=== PATIENT | male | born 1970 | race Caucasian/White ===

== ENCOUNTER 2018-08-15 11:00 | Inpatient (IN) | payer MEDICAID ==
[2018-08-15 11:10] VITALS: BMI 34.0
[2018-08-15] MEDS ORDERED: Sodium Chloride 0.9% 1,000 ML IV SCH (11:30)
--- NOTE | 2018-08-15 11:31 | C.PDOC ---
History Of Present Illness 47 years old male presents to ED for complaints of swelling, redness, and pus discharge from right foot. 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 Patient also reports he developed a fever today. Patient also states that he has been non-complaint with his metformin medication. Patient's current blood-sugar is in the 300s. Denies any other complaints. Time Seen by Provider: 08/15/18 11:04 Chief Complaint (Nursing): Lower Extremity Problem/Injury History Per: Patient History/Exam Limitations: no limitations Onset/Duration Of Symptoms: Days Current Symptoms Are (Timing): Still Present Severity: Moderate Recent travel outside of the [place]: No - Ankle/Foot Description Of Injury: Struck With Object Past Medical History Reviewed: Historical Data, Nursing Documentation, Vital Signs Vital Signs: Last Vital Signs Temp 98.1 F 08/15/18 11:10 Pulse 97 H 08/15/18 11:10 Resp 20 08/15/18 11:10 BP 133/83 08/15/18 11:10 Pulse Ox 99 08/15/18 11:10 - Medical History PMH: Asthma, Diabetes - [facility] Procedures TETANUS TOXOID ADMINIST (04/27/14) Family History: States: Unknown Family Hx - Social History Hx Tobacco Use: Yes Hx Alcohol Use: No Hx Substance Use: No - Immunization History Hx Tetanus Toxoid Vaccination: Yes Hx Influenza Vaccination: Yes Hx Pneumococcal Vaccination: Yes Review Of Systems Constitutional: Positive for: Fever. Negative for: Chills Skin: Positive for: Other (Redness and swelling of right foot ). Negative for: Rash Physical Exam - Physical Exam Appears: Non-toxic, No Acute Distress Skin: Warm, Dry, No Rash Head: Atraumatic, Normacephalic Eye(s): bilateral: Normal Inspection, PERRL, EOMI Oral Mucosa: Moist Neck: Normal ROM, Supple Chest: Symmetrical, No Tenderness Cardiovascular: Rhythm Regular, No Murmur Respiratory: Normal Breath Sounds, No Rales, No Rhonchi, No Wheezing Gastrointestinal/Abdominal: Soft, No Tenderness Extremity: Normal ROM, No Deformity, Swelling (right foot), Other (Cellulitis, swelling, and erythema to right dorsal aspect of foot) Pulses: Left Radial: Normal, Right Radial: Normal Neurological/Psych: Oriented x3, Normal Speech Gait: Steady ED Course And Treatment - Laboratory Results Result Diagrams: 08/15/18 12:02 08/15/18 12:02 Lab Interpretation: Abnormal O2 Sat by Pulse Oximetry: 99 (RA) Pulse Ox Interpretation: Normal - Other Rad Right Foot X-Ray X-Ray: Viewed By Me, Read By Radiologist Interpretation: Date of service: 08/15/2018. PROCEDURE: Right Foot Radiographs. HISTORY: cellulitis. COMPARISON: None. FINDINGS: BONES: No acute fracture or destructive bony lesion identified. JOINTS: Severe hallux valgus deformity. SOFT TISSUES: Prominent dorsal soft tissue edema seen at the midfoot and forefoot junction. No retained radiodense foreign body or emphysema soft tissue changes related. OTHER FINDINGS: None. IMPRESSION: No acute fracture dislocation. Severe hallux valgus deformity. Forefoot midfoot dorsal soft tissue edema. Progress Note: Treated with IVF NSS, Vancomycin and zosyn. case discussed and patient evaluated by podiatry resident. Treated with insulin 5 units IV Reassessment Condition: Improved - Physician Consult Information Physician Contacted: Claudy Rapp Outcome Of Conversation: admit Medical Decision Making Medical Decision Making: Plan: * IV Fluids * Zosyn * Vincomycin * Blood work * Blood Culture * Urinalysis * Right Foot X-Ray 11:30AM * Discussed case with Podiatry recreation specialist Disposition Discussed With Dr.: Claudy Rapp Doctor Will See Patient In The: Hospital - Disposition Disposition: HOSPITALIZED Disposition Time: 16:00 Condition: STABLE - POA Present On Arrival: None - Clinical Impression Clinical Impression: Cellulitis - PA / COSTUME MISTRESS / Resident Statement MD/DO has reviewed & agrees with the documentation as recorded. - Scribe Statement The provider has reviewed the documentation as recorded by the Artibliliana Blue All medical record entries made by the Ricardo were at my direction and personally dictated by me. I have reviewed the chart and agree that the record accurately reflects my personal performance of the history, physical exam, medical decision making, and the department course for this patient. I have also personally directed, reviewed, and agree with the discharge instructions and disposition. Decision To Admit - Pt Status Changed To: Hospital Disposition Of: Inpatient - Admit Certification Admit to Inpatient:: After my assessment, the patient will require hospitalization for at least two midnights. This is because of the severity of symptoms shown, intensity of services needed, and/or the medical risk in this patient being treated as an outpatient. - InPatient: Physician Admission Certification: I certify that this patient requires 2 or mo re midnights of care for the following reason:: cellulitis. Hyperglycemia - . Bed Request Type: Regular Admitting Physician: Claudy Rapp Patient Diagnosis: Cellulitis
[2018-08-15] MEDS ORDERED: Piperacillin/Tazobact 3.375 gm 100 ML IV STA (11:32)
[2018-08-15] MEDS ORDERED: Vancomycin 1 GM 1 GM/250 ML BAG IV SCH (11:45)
[2018-08-15 12:05] LABS: BASO # 0.1 K/uL (0.0-0.2); BASO % 0.7 % (0.0-2.0); EOS # 0.2 K/uL (0.0-0.7); EOS % 1.7 % (0.0-4.0); HEMOGLOBIN 13.2 g/dL (12.0-18.0); LYMPH # 2.1 K/uL (1.0-4.3); LYMPH % 18.2 % (20.0-40.0); MEAN CELL VOLUME 85.9 fL (80.0-94.0); MEAN CORPUSCULAR HEMOGLOBIN 28.9 pg (27.0-31.0); MEAN CORPUSCULAR HGB CONC 33.7 g/dL (33.0-37.0); MEAN PLATELET VOLUME 8.3 fL (7.2-11.7); MONO # 0.7 K/uL (0.0-0.8); MONO % 5.8 % (0.0-10.0); NEUT # 8.7 K/uL (1.8-7.0); NEUT % 73.6 % (50.0-75.0); RBC 4.55 Mil/uL (4.40-5.90); RED CELL DISTRIBUTION WIDTH 13.5 % (11.5-14.5); WHITE BLOOD COUNT 11.8 K/uL (4.8-10.8)
[2018-08-15] MEDS ORDERED: Sodium Chloride 0.9% 1,000 ML ONE ×2 (12:10→12:44)
[2018-08-15] MEDS ORDERED: Piperacillin/Tazobact 3.375 gm 100 ML IVPB ONE (12:10)
[2018-08-15] MEDS ORDERED: Vancomycin 1 GM 1 GM/250 ML BAG IVPB ONE (12:10)
[2018-08-15 12:24] LABS: ALBUMIN 3.6 g/dL (3.5-5.0); ALT/SGPT 14 U/L (21-72); AST/SGOT 11 U/L (17-59); BLOOD UREA NITROGEN 17 mg/dL (9-20); GFR NON-AFRICAN AMERICAN > 60
[2018-08-15 12:26] LABS: SQUAMOUS EPITHIAL < 1 /hpf (0-5); URINE BILIRUBIN 1+ (NEGATIVE); URINE BLOOD NEGATIVE (NEGATIVE); URINE CLARITY Clear (Clear); URINE COLOR Amber (YELLOW); URINE GLUCOSE (UA) 3+ mg/dL (Normal); URINE LEUKOCYTE ESTERASE NEG Leu/uL (Negative); URINE PROTEIN 1+ mg/dL (NEGATIVE)
[2018-08-15] MEDS ORDERED: Sodium Chloride 0.9% 1,000 ML IV ONE (12:29)
[2018-08-15] MEDS ORDERED: (Novolin R) Insulin Human Regular 100 units/ml vial IVP ONE (12:30)
[2018-08-15] MEDS ORDERED: (Novolin R) Insulin Human Regular 100 units/ml vial ONE (12:44)
--- NOTE | 2018-08-15 15:18 | CP.PCM.CON ---
Addendum entered and electronically signed by Rossi Meaodws DPM 08/15/18 15:55: LE exam: Derm - multiple diffuse hyperpigmented indurated lesions noted to B/L legs, non-tender with no breaks in skin or soft tissue noted Original Note: History of Present Illness - History of Present Illness History of Present Illness: Podiatry Consult Note - Dr. Carter 47 y/o male with PMHx of DM, asthma seen in ED today for right foot pain and swelling. He states that his foot has gotten increasingly swollen and painful over the last 6-7 weeks. 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 Admits to sticking a needle into the top of the foot and draining out white fluid, which gives him some relief. States he is not keeping up with his diabetes meds as he does not regularly see a primary care doctor. Denies seeing a firewall engineer for diabetic foot care. At present, admits to having mild fevers and chills as of l ate. Denies N/V/CP/SOB. PSHx: denies All: NKDA SocHx: Admits to cigarette use approx 10-12 cigarettes daily. Lives in [place] with children. Review of Systems - Review of Systems All systems: reviewed and no additional remarkable complaints except (per HPI) Past Patient History - Past Social History Smoking Status: Heavy Smoker > 10 Cigarettes Daily - PULMONARY Hx Asthma: Yes - ENDOCRINE/METABOLIC Hx Endocrine Disorders: Yes Hx Diabetes Mellitus Type 2: Yes - PSYCHIATRIC Hx Substance Use: No - SURGICAL HISTORY Hx Surgeries: No Meds Allergies/Adverse Reactions: Allergies Allergy/AdvReac Type Severity Reaction Status Date / Time No Known Allergies Allergy Verified 08/15/18 11:07 - Medications Medications: Current Medications Sodium Chloride (Sodium Chloride 0.9%) 1,000 mls @ 100 mls/hr IV .Q10H ULISSES Last Admin: 08/15/18 12:16 Dose: 100 mls/hr Vancomycin HCl (Vancomycin 1gm In Normal Saline Addvantage) 1 gm in 250 mls @ 166.667 mls/hr IV STAT ULISSES; Protocol Last Admin: 08/15/18 12:48 Dose: 166.667 mls/hr Physical Exam - Constitutional Appears: Well, Non-toxic, No Acute Distress - Extremities Exam Additional comments: Lower extremity focused exam: Vasc: DP pulse 1/4 on R, PT non palpable secondary to edema. DP/PT pulses 2/4 on L. Non-pitting pedal edema extending from ankle distally to digits on R; no pedal edema on LLE. CFT < 3 sec to all digits x10. Temperature gradient warm to warm on RLE; warm to cool on LLE Derm: Circular superficial skin abscess vs ulceration noted to dorsum of right foot measuring approx 4cm in diameter and 0.1cm in depth with olga-wound exhibiting blistered skin. Central aspect of wound exhibits hematoma formation. Olga-wound erythema noted. No active drainage, no malodor, no fluctuance. Erythematous changes noted from distal 2/3 of leg distally to digits of foot. Neuro: protective sensation is grossly intact Ortho: moderate-severe tenderness noted to palpation of right dorsal foot at site of wound - Neurological Exam Neurological exam: Alert, Oriented x3 - Psychiatric Exam Psychiatric exam: Normal Affect, Normal Mood Results - Vital Signs Recent Vital Signs: Last Vital Signs Temp 97.8 F 08/15/18 14:19 Pulse 90 08/15/18 14:19 Resp 18 08/15/18 14:32 BP 144/87 08/15/18 14:19 Pulse Ox 100 08/15/18 14:19 - Labs Result Diagrams: 08/15/18 12:02 08/15/18 12:02 Labs: Laboratory Results - last 24 hr 08/15/18 08/15/18 08/15/18 11:07 12:02 12:02 WBC 11.8 H RBC 4.55 Hgb 13.2 Hct 39.1 MCV 85.9 MCH 28.9 MCHC 33.7 RDW 13.5 Plt Count 278 MPV 8.3 Neut % (Auto) 73.6 Lymph % (Auto) 18.2 L Blount % (Auto) 5.8 Eos % (Auto) 1.7 Baso % (Auto) 0.7 Neut # (Auto) 8.7 H Lymph # (Auto) 2.1 Blount # (Auto) 0.7 Eos # (Auto) 0.2 Baso # (Auto) 0.1 Sodium 135 Potassium 4.5 Chloride 99 Carbon Dioxide 28 Anion Gap 13 BUN 17 Creatinine 0.8 Est GFR ( Amer) > 60 Est GFR (Non-Af Amer) > 60 POC Glucose (mg/dL) 361 H Random Glucose 418 H* Lactic Acid Calcium 9.0 Total Bilirubin 0.5 AST 11 L ALT 14 L Alkaline Phosphatase 143 H Total Protein 7.3 Albumin 3.6 Globulin 3.7 Albumin/Globulin Ratio 1.0 Urine Color Urine Clarity Urine pH Ur Specific [employer] Urine Protein Urine Glucose (UA) Urine Ketones Urine Blood Urine Nitrate Urine Bilirubin Urine Urobilinogen Ur Leukocyte Esterase Urine WBC (Auto) Urine RBC (Auto) Ur Squamous Epith Cells 08/15/18 08/15/18 08/15/18 12:02 12:17 14:24 WBC RBC Hgb Hct MCV MCH MCHC RDW Plt Count MPV Neut % (Auto) Lymph % (Auto) Blount % (Auto) Eos % (Auto) Baso % (Auto) Neut # (Auto) Lymph # (Auto) Blount # (Auto) Eos # (Auto) Baso # (Auto) Sodium Potassium Chloride Carbon Dioxide Anion Gap BUN Creatinine Est GFR ( Amer) Est GFR (Non-Af Amer) POC Glucose (mg/dL) 263 H Random Glucose Lactic Acid 1.9 Calcium Total Bilirubin AST ALT Alkaline Phosphatase Total Protein Albumin Globulin Albumin/Globulin Ratio Urine Color Alva Urine Clarity Clear Urine pH 5.0 Ur Specific [employer] 1.036 H Urine Protein 1+ H Urine Glucose (UA) 3+ H Urine Ketones Trace Urine Blood Negative Urine Nitrate Negative Urine Bilirubin 1+ H Urine Urobilinogen 4.0 Ur Leukocyte Esterase Neg Urine WBC (Auto) 3 Urine RBC (Auto) 7 H Ur Squamous Epith Cells < 1 Assessment & Plan - Assessment and Plan (Free Text) Assessment: 47 y/o diabetic male with right lower extremity cellulitis with possible foot abscess Plan Pt seen and evaluate at bedside Discussed plan with Dr. Carter WBC 11.8, mild tachycardia HR 97 noted R foot x-rays reviewed, no acute osseous abnormalities noted, marked soft tissue edema noted to forefoot and midfoot Wound site cleaned with saline and dressed with betadine, DSD Pt to be admitted for IV abx RLE MRI ordered, r/o soft tissue abscess, r/o osteomyelitis Recommend IV Vancomycin, Zosyn for abx therapy Podiatry will continue to follow patient while in house
--- NOTE | 2018-08-15 15:33 | RAD ---
Date of service: 08/15/2018 PROCEDURE: Right Foot Radiographs. HISTORY: cellulitis COMPARISON: None. FINDINGS: BONES: No acute fracture or destructive bony lesion identified. JOINTS: Severe hallux valgus deformity. SOFT TISSUES: Prominent dorsal soft tissue edema seen at the midfoot and forefoot junction. No retained radiodense foreign body or emphysema soft tissue changes related. OTHER FINDINGS: None. IMPRESSION: No acute fracture dislocation. Severe hallux valgus deformity. Forefoot midfoot dorsal soft tissue edema.
[2018-08-15] MEDS: Morphine 4 MG/ML VIAL IV PRN ×2 (16:52→22:52)
[2018-08-15] MEDS: Sodium Chloride 0.9% 1,000 ML IV SCH (16:54)
[2018-08-15] MEDS: Piperacillin/Tazobact 3.375 GM in Sodium Chloride 100 ML IVPB SCH ×2 (17:00→21:39)
[2018-08-15] MEDS: (Novolog) Insulin Aspart, Recombinant 100 u/ml 10 ml vial SC SCH ×2 (17:01→21:36)
[2018-08-16] MEDS: Piperacillin/Tazobact 3.375 GM in Sodium Chloride 100 ML IVPB SCH ×4 (04:23→22:08)
[2018-08-16] MEDS: Morphine 4 MG/ML VIAL IV PRN ×2 (05:42→12:54)
[2018-08-16] MEDS: (Novolog) Insulin Aspart, Recombinant 100 u/ml 10 ml vial SC SCH ×4 (07:30→21:46)
--- NOTE | 2018-08-16 09:57 | CP.PCM.PN ---
Subjective - Date & Time of Evaluation Date of Evaluation: 08/16/18 Time of Evaluation: 09:55 - Subjective Subjective: Podiatry Consult Note - Dr. Carter 47 y/o male with seen and evaluated at bedside. Patient resting comfortably, however complains of pain to the right foot and is requesting stronger pain medication. Patient is in NAD and AAOx3. At present, patient Denies F/N/V/CP/SOB. Objective - Vital Signs/Intake and Output Vital Signs (last 24 hours): Temp Pulse Resp BP Pulse Ox 97.6 F 86 20 127/84 96 08/16/18 08:00 08/16/18 08:00 08/16/18 08:00 08/16/18 08:00 08/16/18 08:00 Intake and Output: 08/16/18 08/16/18 06:59 18:59 Intake Total Output Total Balance - Medications Medications: Current Medications Enoxaparin Sodium (Lovenox) 40 mg SC DAILY ULISSES Vancomycin HCl (Vancomycin 1gm In Normal Saline Addvantage) 1 gm in 250 mls @ 166.667 mls/hr IV STAT ULISSES; Protocol Last Admin: 08/15/18 12:48 Dose: 166.667 mls/hr Piperacillin Sod/Tazobactam (Sod 3.375 gm/ Sodium Chloride) 100 mls @ 200 mls/hr IVPB Q6H ULISSES; Protocol Last Admin: 08/16/18 04:23 Dose: 200 mls/hr Sodium Chloride (Sodium Chloride 0.9%) 1,000 mls @ 50 mls/hr IV .Q20H ULISSES Last Admin: 08/15/18 16:54 Dose: 50 mls/hr Vancomycin HCl 1 gm/ Sodium (Chloride) 250 mls @ 166.7 mls/hr IVPB DAILY ULISSES; Protocol Insulin Aspart (Novolog) 0 unit SC ACHS ULISSES; Protocol Last Admin: 08/15/18 21:36 Dose: Not Given Morphine Sulfate (Morphine) 4 mg IV Q6 PRN PRN Reason: Pain, moderate (4-7) Last Admin: 08/16/18 05:42 Dose: 4 mg Pantoprazole Sodium (Protonix Ec Tab) 40 mg PO DAILY ULISSES Pneumococcal Polyvalent Vaccine (Pneumovax 23 Vaccine) 0.5 ml IM .ONCE ONE Stop: 08/17/18 10:01 - Labs Labs: 08/15/18 12:02 08/15/18 12:02 - Constitutional Appears: Well, Non-toxic, No Acute Distress - Extremities Exam Additional comments: Lower extremity focused exam: Vasc: DP pulse 1/4 on R, PT non palpable secondary to edema. DP/PT pulses 2/4 on L. Non-pitting pedal edema extending from ankle distally to digits on R; no pedal edema on LLE. CFT < 3 sec to all digits x10. Temperature gradient warm to warm on RLE; warm to cool on LLE Derm: Circular superficial skin abscess vs ulceration noted to dorsum of right foot measuring approx 4cm in diameter and 0.1cm in depth with arsen-wound exhibiting blistered skin. Central aspect of wound exhibits hematoma formation. Arsen-wound erythema noted. No active drainage, no malodor, no fluctuance. Erythematous changes noted from distal 2/3 of leg distally to digits of foot. Neuro: protective sensation is grossly intact Ortho: moderate-severe tenderness noted to palpation of right dorsal foot at site of wound - Neurological Exam Neurological Exam: Alert, Awake, Oriented x3 - Psychiatric Exam Psychiatric exam: Normal Affect, Normal Mood Assessment and Plan - Assessment and Plan (Free Text) Assessment: 47 y/o diabetic male with right lower extremity cellulitis with possible foot abscess Plan: Pt seen and evaluate at bedside Discussed plan with Dr. Raul Tan at this time Labs from today pending- WBC, ESR, CRP R foot x-rays reviewed, no acute osseous abnormalities noted, marked soft tissue edema noted to forefoot and midfoot Wound site cleaned with saline and dressed with betadine, DSD Pt to be admitted for IV abx RLE MRI ordered, r/o soft tissue abscess, r/o osteomyelitis Recommend IV Vancomycin, Zosyn for abx therapy Podiatry will continue to follow patient while in house
[2018-08-16] MEDS: Enoxaparin 40 mg Syringe SC SCH (11:33)
[2018-08-16] MEDS: Pantoprazole 40 mg EC Tab PO SCH (11:33)
[2018-08-16] MEDS ORDERED: Morphine 4 MG/ML VIAL IV SCH (11:53)
--- NOTE | 2018-08-16 12:43 | CP.PCM.HP ---
Past Patient History - Past Social History Smoking Status: Heavy Smoker > 10 Cigarettes Daily - PULMONARY Hx Asthma: Yes - ENDOCRINE/METABOLIC Hx Endocrine Disorders: Yes Hx Diabetes Mellitus Type 2: Yes - INTEGUMENTARY Hx Cellulitis: Yes - MUSCULOSKELETAL/RHEUMATOLOGICAL Hx Falls: No - PSYCHIATRIC Hx Substance Use: Yes - SURGICAL HISTORY Hx Surgeries: No - ANESTHESIA Hx Anesthesia: No Hx Anesthesia Reactions: No Hx Malignant Hyperthermia: No Has any member of the family had a problem w/ anesthesia?: No Meds Allergies/Adverse Reactions: Allergies Allergy/AdvReac Type Severity Reaction Status Date / Time No Known Allergies Allergy Verified 08/15/18 11:07 Physical Exam - Constitutional Appears: Well - Head Exam Head Exam: ATRAUMATIC, NORMAL INSPECTION, NORMOCEPHALIC - Eye Exam Eye Exam: EOMI, Normal appearance, PERRL Pupil Exam: NORMAL ACCOMODATION, PERRL - ENT Exam ENT Exam: Mucous Membranes Moist, Normal Exam - Neck Exam Neck exam: Positive for: Normal Inspection - Respiratory Exam Respiratory Exam: Decreased Breath Sounds - Cardiovascular Exam Cardiovascular Exam: REGULAR RHYTHM, +S1, +S2 - GI/Abdominal Exam GI & Abdominal Exam: Diminished Bowel Sounds, Soft - Rectal Exam Rectal Exam: Deferred Results - Vital Signs Recent Vital Signs: Last Vital Signs Temp 97.6 F 08/16/18 08:00 Pulse 86 08/16/18 08:00 Resp 20 08/16/18 08:00 BP 127/84 08/16/18 08:00 Pulse Ox 96 08/16/18 08:00 - Labs Result Diagrams: 08/15/18 12:02 08/15/18 12:02 Labs: Laboratory Results - last 24 hr 08/15/18 08/15/18 08/15/18 14:24 16:40 21:21 ESR POC Glucose (mg/dL) 263 H 280 H 227 H C-Reactive Protein 08/16/18 08/16/18 08/16/18 07:37 10:49 10:49 ESR 74 H POC Glucose (mg/dL) 212 H C-Reactive Protein 69.70 H 08/16/18 12:07 ESR POC Glucose (mg/dL) 311 H C-Reactive Protein
[2018-08-16] MEDS: Sodium Chloride 0.9% 1,000 ML IV SCH ×2 (13:05→18:15)
--- NOTE | 2018-08-16 16:17 | CP.PCM.CON ---
History of Present Illness - History of Present Illness History of Present Illness: 47 y/o male with PMHx of DM, asthma Patient states that his foot has gotten increasingly swollen and painful over the last 6-7 weeks. 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 Admits to sticking a needle into the top of the foot and draining out white fluid, which gives him some relief. States he is not keeping up with his diabetes meds Referreed for ID eval r/o OM right foot MRI pending PSHx: denies All: NKDA SocHx: Admits to cigarette use approx 10-12 cigarettes daily. Lives in [place] with children. Review of Systems - Review of Systems All systems: reviewed and no additional remarkable complaints except - Constitutional Constitutional: As Per HPI - EENT Eyes: absent: As Per HPI, Blind Spots, Blurred Vision, Change in Vision, Decreased Night Vision, Diplopia, Discharge, Dry Eye, Exophthalmos, Floaters, Irritation, Itchy Eyes, Loss of Peripheral Vision, Pain, Photophobia, Requires Corrective Lenses, Sees Flashes, Spots in Vision, Tunnel Vision, Other Visual Disturbances, Loss of Vision, Other Ears: absent: As Per HPI, Decreased Hearing, Ear Discharge, Ear Pain, Tinnitus, Abnormal Hearing, Disequilibrium, Dizziness, Other Nose/Mouth/Throat: absent: As Per HPI, Epistaxis, Nasal Congestion, Nasal Discharge, Nasal Obstruction, Nasal Trauma, Nose Pain, Post Nasal Drip, Sinus Pain, Sinus Pressure, Bleeding Gums, Change in Voice, Dental Pain, Dry Mouth, Dysphagia, Halitosis, Hoarsness, Lip Swelling, Mouth Lesions, Mouth Pain, Odynophagia, Sore Throat, Throat Swelling, Tongue Swelling, Facial Pain, Neck Pain, Neck Mass, Other - Cardiovascular Cardiovascular: absent: As Per HPI, Acrocyanosis, Chest Pain, Chest Pain at Rest, Chest Pain with Activity, Claudication, Diaphoresis, Dyspnea, Dyspnea on Exertion, Edema, Irregular Heart Rhythm, Pain Radiating to Arm/Neck/Jaw, Leg Edema, Leg Ulcers, Lightheadedness, Orthopnea, Palpitations, Paroxysmal Nocturnal Dyspnea, Pedal Edema, Radiating Pain, Rapid Heart Rate, Slow Heart Rate, Syncope, Other - Respiratory Respiratory: absent: As Per HPI, Cough, Dyspnea, Hemoptysis, Dyspnea on Exertion, Wheezing, Snoring, Stridor, Pain on Inspiration, Chest Congestion, Excessive Mucous Production, Change in Mucous Color, Pain with Coughing, Other - Gastrointestinal Gastrointestinal: absent: As Per HPI, Abdominal Pain, Belching, Bloating, Change in Bowel Habits, Change in Stool Character, Coffee Ground Emesis, Constipation, Cramping, Diarrhea, Dyspepsia, Dysphagia, Early Satiety, Excessive Flatus, Fecal Incontinence, Heartburn, Hematemesis, Hematochezia, Loose Stools, Melena, Nausea, Odynophagia, Temesmus, Vomiting, Other - Genitourinary Genitourinary: absent: As Per HPI, Change in Urinary Stream, Difficulty Urinating, Dysuria, Flank Pain, Hematuria, Pyuria, Nocturia, Urinary Incontinence, Urinary Frequency, Urinary Hesitance, Urinary Urgency, Voiding Freq/Small Amts, Freq UTI, Hx Renal/Bladder Calculi, Hx /Renal Surgery, Bladder Distension, Other - Musculoskeletal Musculoskeletal: As Per HPI - Integumentary Integumentary: As Per HPI, Skin Pain, Wounds - Neurological Neurological: absent: As Per HPI, Abnormal Gait, Abnormal Hearing, Abnormal Movements, Abnormal Speech, Behavioral Changes, Burning Sensations, Confusion, Convulsions, Disequilibrium, Dizziness, Numbness, Focal Weakness, Frequent Falls, Headaches, Lack of Coordination, Loss of Vision, Memory Loss, Paresthesias, Radicular Pain, Restless Legs, Sensory Deficit, Syncope, Tingling, Tremor, Vertigo, Weakness, Other Visual Disturbances, Other - Psychiatric Psychiatric: absent: As Per HPI, Abnormal Sleep Pattern, Anhedonia, Anxiety, Auditory Hallucinations, Behavioral Changes, Change in Appetite, Change in Libido, Confusion, Depression, Difficulty Concentrating, Hallucinations, Homicidal Ideation, Hopelessness, Irritability, Memory Loss, Mood Swings, Panic Attacks, Paranoia, Suicidal Ideation, Visual Hallucinations, Tactile Hallucinations, Other - Endocrine Endocrine: absent: As Per HPI, Change in Body Appearance, Change in Libido, Cold Intolorance, Deepening of Voice, Excessive Sweating, Fatigue, Flushing, Heat Intolorance, Increase in Ring/Shoe/Hat Size, Palpitations, Polydipsia, Polyphagia, Polyuria, Other - Hematologic/Lymphatic Hematologic: absent: As Per HPI, Easy Bleeding, Easy Bruising, Lymphadenopathy, Other Past Patient History - Past Social History Smoking Status: Heavy Smoker > 10 Cigarettes Daily - PULMONARY Hx Asthma: Yes - ENDOCRINE/METABOLIC Hx Endocrine Disorders: Yes Hx Diabetes Mellitus Type 2: Yes - INTEGUMENTARY Hx Cellulitis: Yes - MUSCULOSKELETAL/RHEUMATOLOGICAL Hx Falls: No - PSYCHIATRIC Hx Substance Use: Yes - SURGICAL HISTORY Hx Surgeries: No - ANESTHESIA Hx Anesthesia: No Hx Anesthesia Reactions: No Hx Malignant Hyperthermia: No Has any member of the family had a problem w/ anesthesia?: No Meds Allergies/Adverse Reactions: Allergies Allergy/AdvReac Type Severity Reaction Status Date / Time No Known Allergies Allergy Verified 08/15/18 11:07 - Medications Medications: Current Medications Enoxaparin Sodium (Lovenox) 40 mg SC DAILY [facility] Last Admin: 08/16/18 11:33 Dose: 40 mg Vancomycin HCl (Vancomycin 1gm In Normal Saline Addvantage) 1 gm in 250 mls @ 166.667 mls/hr IV STAT [facility]; Protocol Last Admin: 08/15/18 12:48 Dose: 166.667 mls/hr Piperacillin Sod/Tazobactam (Sod 3.375 gm/ Sodium Chloride) 100 mls @ 200 mls/hr IVPB Q6H [facility]; Protocol Last Admin: 08/16/18 11:31 Dose: 200 mls/hr Sodium Chloride (Sodium Chloride 0.9%) 1,000 mls @ 50 mls/hr IV .Q20H [facility] Last Admin: 08/16/18 13:05 Dose: Not Given Vancomycin HCl 1 gm/ Sodium (Chloride) 250 mls @ 166.7 mls/hr IVPB DAILY [facility]; Protocol Last Admin: 08/16/18 11:32 Dose: 166.7 mls/hr Insulin Aspart (Novolog) 0 unit SC ACHS [facility]; Protocol Last Admin: 08/16/18 13:04 Dose: 4 units Morphine Sulfate (Morphine) 4 mg IV Q4 PRN PRN Reason: Pain, Mild (1-3) Last Admin: 08/16/18 12:54 Dose: 4 mg Nicotine (Nicoderm Cq) 1 patch TD DAILY [facility] Last Admin: 08/16/18 12:55 Dose: 1 patch Pantoprazole Sodium (Protonix Ec Tab) 40 mg PO DAILY [facility] Last Admin: 08/16/18 11:33 Dose: 40 mg Pneumococcal Polyvalent Vaccine (Pneumovax 23 Vaccine) 0.5 ml IM .ONCE ONE Stop: 08/17/18 10:01 Physical Exam - Constitutional Appears: Non-toxic, Chronically Ill - Head Exam Head Exam: NORMOCEPHALIC - Eye Exam Eye Exam: PERRL. absent: Scleral icterus - ENT Exam ENT Exam: Mucous Membranes Dry, Normal External Ear Exam - Neck Exam Neck exam: Negative for: Lymphadenopathy - Respiratory Exam Respiratory Exam: Decreased Breath Sounds - Cardiovascular Exam Cardiovascular Exam: REGULAR RHYTHM - GI/Abdominal Exam GI & Abdominal Exam: Diminished Bowel Sounds, Soft. absent: Tenderness - Rectal Exam Rectal Exam: Deferred - Exam Exam: NORMAL INSPECTION - Extremities Exam Extremities exam: Positive for: pedal edema, tenderness, pedal pulses present. Negative for: calf tenderness Additional comments: Vasc: DP pulse 1/4 on R, PT non palpable secondary to edema. DP/PT pulses 2/4 on L. Non-pitting pedal edema extending from ankle distally to digits on R; no pedal edema on LLE. CFT < 3 sec to all digits x10. Temperature gradient warm to warm on RLE; warm to cool on LLE Derm: Circular superficial skin abscess vs ulceration noted to dorsum of right foot measuring approx 4cm in diameter and 0.1cm in depth with arsen-wound exhibiting blistered skin. Central aspect of wound exhibits hematoma formation. Arsen-wound erythema noted. No active drainage, no malodor, no fluctuance. Erythe matous changes noted from distal 2/3 of leg distally to digits of foot. Neuro: protective sensation is grossly intact Ortho: moderate-severe tenderness noted to palpation of right dorsal foot at site of wound - Back Exam Back exam: absent: CVA tenderness (L), CVA tenderness (R), paraspinal tenderness - Neurological Exam Neurological exam: Alert, CN II-XII Intact, Oriented x3, Reflexes Normal - Psychiatric Exam Psychiatric exam: Depressed - Skin Skin Exam: Dry Results - Vital Signs Recent Vital Signs: Last Vital Signs Temp 99.2 F 08/16/18 16:08 Pulse 84 08/16/18 16:08 Resp 20 08/16/18 16:08 BP 135/81 08/16/18 16:08 Pulse Ox 97 08/16/18 16:08 - Labs Result Diagrams: 08/15/18 12:02 08/15/18 12:02 Labs: Laboratory Results - last 24 hr 08/15/18 08/16/18 08/16/18 21:21 07:37 10:49 ESR 74 H POC Glucose (mg/dL) 227 H 212 H C-Reactive Protein 08/16/18 08/16/18 10:49 12:07 ESR POC Glucose (mg/dL) 311 H C-Reactive Protein 69.70 H Assessment & Plan (1) Diabetes mellitus Status: Acute (2) Osteomyelitis of ankle and foot Status: Suspected (3) Cellulitis Status: Acute (4) Puncture wound of foot with foreign body Status: Acute - Assessment and Plan (Free Text) Assessment: await MRI may need OR debridement consider vascular studies await cutlures IV antibiotics
[2018-08-16] MEDS ORDERED: Tetanus/Diphtheria Toxoids 0.5 ml Syringe IM ONE (16:52)
[2018-08-16] MEDS: Naproxen 550 mg Tab PO SCH (19:00)
[2018-08-17] MEDS: Piperacillin/Tazobact 3.375 GM in Sodium Chloride 100 ML IVPB SCH ×4 (04:29→23:07)
[2018-08-17] MEDS: (Novolog) Insulin Aspart, Recombinant 100 u/ml 10 ml vial SC SCH ×4 (08:00→21:26)
[2018-08-17] MEDS: Morphine 4 MG/ML VIAL IV PRN ×2 (08:00→21:23)
[2018-08-17] MEDS ORDERED: Pneumococcal 23-Valent Vaccine IM ONE (10:00)
[2018-08-17] MEDS: Sodium Chloride 0.9% 1,000 ML IV SCH ×2 (10:01→21:28)
[2018-08-17] MEDS: Enoxaparin 40 mg Syringe SC SCH (10:02)
[2018-08-17] MEDS: Pantoprazole 40 mg EC Tab PO SCH (10:02)
[2018-08-17] MEDS: Naproxen 550 mg Tab PO SCH ×2 (10:02→18:00)
--- NOTE | 2018-08-17 14:36 | CP.PCM.PN ---
Subjective - Date & Time of Evaluation Date of Evaluation: 08/17/18 Time of Evaluation: 07:30 - Subjective Subjective: clinically same Objective - Vital Signs/Intake and Output Vital Signs (last 24 hours): Temp Pulse Resp BP Pulse Ox 97.4 F L 74 20 162/89 H 97 08/17/18 08:04 08/17/18 08:04 08/17/18 08:04 08/17/18 08:04 08/17/18 08:04 Intake and Output: 08/17/18 08/17/18 06:59 18:59 Intake Total 400 1250 Output Total 1150 1500 Balance -750 -250 - Medications Medications: Current Medications Enoxaparin Sodium (Lovenox) 40 mg SC DAILY [facility] Last Admin: 08/17/18 10:02 Dose: 40 mg Vancomycin HCl (Vancomycin 1gm In Normal Saline Addvantage) 1 gm in 250 mls @ 166.667 mls/hr IV STAT [facility]; Protocol Last Admin: 08/15/18 12:48 Dose: 166.667 mls/hr Piperacillin Sod/Tazobactam (Sod 3.375 gm/ Sodium Chloride) 100 mls @ 200 mls/hr IVPB Q6H [facility]; Protocol Last Admin: 08/17/18 10:02 Dose: 200 mls/hr Sodium Chloride (Sodium Chloride 0.9%) 1,000 mls @ 50 mls/hr IV .Q20H [facility] Last Admin: 08/17/18 10:01 Dose: Not Given Vancomycin HCl 1 gm/ Sodium (Chloride) 250 mls @ 166.7 mls/hr IVPB DAILY [facility]; Protocol Last Admin: 08/17/18 10:03 Dose: 166.7 mls/hr Insulin Aspart (Novolog) 0 unit SC ACHS [facility]; Protocol Last Admin: 08/17/18 11:38 Dose: 4 units Methadone HCl (Methadone) 110 mg PO DAILY [facility] Last Admin: 08/17/18 11:20 Dose: 110 mg Naproxen (Anaprox Ds) 550 mg PO BID [facility] Last Admin: 08/17/18 10:02 Dose: 550 mg Nicotine (Nicoderm Cq) 1 patch TD DAILY [facility] Last Admin: 08/17/18 11:09 Dose: 1 patch Pantoprazole Sodium (Protonix Ec Tab) 40 mg PO DAILY [facility] Last Admin: 08/17/18 10:02 Dose: 40 mg - Labs Labs: 08/15/18 12:02 08/15/18 12:02
--- NOTE | 2018-08-17 15:58 | CP.PCM.PN ---
Subjective - Date & Time of Evaluation Date of Evaluation: 08/17/18 Time of Evaluation: 15:58 - Subjective Subjective: Podiatry Progress Note - Dr. Carter 47 y/o male with PMHx of DM and asthma seen and evaluated at bedside regarding right foot cellulitis with possible abscess. During visitation patient reports severe pain to the right foot. Reports seeing tiny amounts of drainage from the foot. Reports pain being 10/10 and pain medication helps very little. Reports pain is strong and he is unable to put in weight on it. Patient is in NAD and AAOx3. At present, patient Denies F/N/V/CP/SOB. Objective - Vital Signs/Intake and Output Vital Signs (last 24 hours): Temp Pulse Resp BP Pulse Ox 97.4 F L 74 20 162/89 H 97 08/17/18 08:04 08/17/18 08:04 08/17/18 08:04 08/17/18 08:04 08/17/18 08:04 Intake and Output: 08/17/18 08/17/18 06:59 18:59 Intake Total 400 1250 Output Total 1150 1500 Balance -750 -250 - Medications Medications: Current Medications Enoxaparin Sodium (Lovenox) 40 mg SC DAILY [facility] Last Admin: 08/17/18 10:02 Dose: 40 mg Vancomycin HCl (Vancomycin 1gm In Normal Saline Addvantage) 1 gm in 250 mls @ 166.667 mls/hr IV STAT [facility]; Protocol Last Admin: 08/15/18 12:48 Dose: 166.667 mls/hr Piperacillin Sod/Tazobactam (Sod 3.375 gm/ Sodium Chloride) 100 mls @ 200 mls/hr IVPB Q6H [facility]; Protocol Last Admin: 08/17/18 10:02 Dose: 200 mls/hr Sodium Chloride (Sodium Chloride 0.9%) 1,000 mls @ 50 mls/hr IV .Q20H [facility] Last Admin: 08/17/18 10:01 Dose: Not Given Vancomycin HCl 1 gm/ Sodium (Chloride) 250 mls @ 166.7 mls/hr IVPB DAILY [facility]; Protocol Last Admin: 08/17/18 10:03 Dose: 166.7 mls/hr Insulin Aspart (Novolog) 0 unit SC ACHS [facility]; Protocol Last Admin: 08/17/18 11:38 Dose: 4 units Methadone HCl (Methadone) 110 mg PO DAILY [facility] Last Admin: 08/17/18 11:20 Dose: 110 mg Naproxen (Anaprox Ds) 550 mg PO BID [facility] Last Admin: 08/17/18 10:02 Dose: 550 mg Nicotine (Nicoderm Cq) 1 patch TD DAILY [facility] Last Admin: 08/17/18 11:09 Dose: 1 patch Pantoprazole Sodium (Protonix Ec Tab) 40 mg PO DAILY [facility] Last Admin: 08/17/18 10:02 Dose: 40 mg - Labs Labs: 08/15/18 12:02 08/15/18 12:02 - Constitutional Appears: Well, Non-toxic, No Acute Distress - Extremities Exam Extremities Exam: absent: Calf Tenderness Additional comments: Lower extremity focused exam: Vasc: DP pulse 1/4 on R, PT non palpable secondary to edema. DP/PT pulses 2/4 on L. Non-pitting pedal edema extending from ankle distally to digits on R; no pedal edema on LLE. CFT < 3 sec to all digits x10. Temperature gradient warm to warm on RLE; warm to cool on LLE Derm: Circular superficial skin abscess vs ulceration noted to dorsum of right foot measuring approx 4cm in diameter and 0.1cm in depth with arsen-wound exhibiting blistered skin. Central aspect of wound exhibits hematoma formation. Arsen-wound erythema noted. No active drainage, no malodor. Erythematous changes noted from distal 2/3 of leg distally to digits of foot. Notice-able fluctanace today with likely abscess formation Neuro: protective sensation is grossly intact Ortho: moderate-severe pain noted to palpation of right dorsal foot at site of wound Assessment and Plan - Assessment and Plan (Free Text) Assessment: 47 y/o male with PMHx of DM and asthma with right lower extremity cellulitis and foot abscess Plan: Patient seen and evaluate at bedside Discussed plan in detail with Dr. Carter WBC 11.8 on 08/15 R foot x-rays reviewed, no acute osseous abnormalities noted, marked soft tissue edema noted to forefoot and midfoot Explained to patient in detail that patient has likely abscess and needs bedside incision and drainage. Explained to patient at length risks, benefits, complications and alternatives. Patient agrees to bedside incision and drainage. Right foot prep with betadine. Utilizing 18 gauge needle, a linear stab incision measuring approximately . 5 cm in length made in the central portion of the dorsum foot wound. ~30 cc of dark red/yellow, malodorous purulence expressed from the foot. Patient tolerated procedure well. Wound site cleaned with copious amounts of saline solution mixed betadine, and dress with betadine wet to dry Wound culture of right foot taken and sent for culture Patient will go to the OR for an incision and drainage and debridement of all nonviable soft tissue right foot tomorrow Friday at 7:30AM with Dr. Carter Spoke to Dr. Rapp regarding OR plans in the AM Please provide medical optimization for surgery in the AM tomorrow- thank you Abx per ID recommendations RLE MRI ordered, r/o soft tissue abscess, r/o osteomyelitis Podiatry will continue to follow patient while in house
--- NOTE | 2018-08-17 19:00 | MRI ---
Date of service: 08/17/2018 PROCEDURE: MRI of the right foot without contrast HISTORY: RLE cellulitis with possible R foot abscess COMPARISON: Comparison is made to the previous x-ray of the right foot dated 08/15/2018 TECHNIQUE: Axial coronal and sagittal MRI images of the right foot were obtained without IV contrast administration P FINDINGS: There is subcutaneous collection demonstrate heterogeneous hypointense T1 and hyperintense T2 signal at the volar aspect of the distal 3rd and 4th metatarsal bone anterior and superficial to the distal extensor tendons measures 2.5 centimeter in the largest transverse diameter 2.2 centimeter in the longitudinal diameter and 2.9 centimeter in the AP diameter. There are adjacent subcutaneous inflammatory changes extending to the level of the extensor tendons. Small amount of fluid noted anterior to the distal 3rd and 4th metatarsal bone. There is no evidence of bone marrow edema or cortical erosion to suggest acute osteomyelitis. Hallux valgus deformity is noted. Diffuse soft tissue edema in the mid and distal right foot is also noted. IMPRESSION: Subcutaneous fluid collection in the mid to distal right foot superficial to the distal extensor tendons measures 2.9 x 2.5 x 2.2 centimeter may represent subcutaneous abscess. No evidence of osteomyelitis.
[2018-08-18] MEDS: Piperacillin/Tazobact 3.375 GM in Sodium Chloride 100 ML IVPB SCH ×4 (04:35→21:33)
[2018-08-18] MEDS: Sodium Chloride 0.9% 1,000 ML IV SCH (05:00)
[2018-08-18 07:42] LABS: BASO # 0.1 K/uL (0.0-0.2); BASO % 0.8 % (0.0-2.0); EOS # 0.4 K/uL (0.0-0.7); EOS % 4.6 % (0.0-4.0); HEMOGLOBIN 13.1 g/dL (12.0-18.0); LYMPH # 2.5 K/uL (1.0-4.3); LYMPH % 27.6 % (20.0-40.0); MEAN CELL VOLUME 85.1 fL (80.0-94.0); MEAN CORPUSCULAR HGB CONC 34.1 g/dL (33.0-37.0); MEAN PLATELET VOLUME 8.8 fL (7.2-11.7); MONO # 0.7 K/uL (0.0-0.8); MONO % 7.5 % (0.0-10.0); NEUT # 5.4 K/uL (1.8-7.0); NEUT % 59.5 % (50.0-75.0); NRBC % 0.2 % (0.0-2.0); RBC 4.52 Mil/uL (4.40-5.90); RED CELL DISTRIBUTION WIDTH 13.3 % (11.5-14.5)
[2018-08-18] MEDS: (Novolog) Insulin Aspart, Recombinant 100 u/ml 10 ml vial SC SCH ×4 (07:46→21:31)
[2018-08-18 08:23] LABS: BLOOD UREA NITROGEN 13 mg/dL (9-20); CALCIUM 8.4 mg/dl (8.6-10.4); GFR NON-AFRICAN AMERICAN > 60
[2018-08-18] MEDS: Pantoprazole 40 mg EC Tab PO SCH (09:00)
[2018-08-18] MEDS: Naproxen 550 mg Tab PO SCH ×2 (09:00→17:22)
[2018-08-18] MEDS: Enoxaparin 40 mg Syringe SC SCH (09:00)
[2018-08-18 11:20] LABS: INR 1.1; PROTHROMBIN TIME 12.4 SECONDS (9.7-12.2)
--- NOTE | 2018-08-18 12:29 | CP.PCM.PN ---
Subjective - Date & Time of Evaluation Date of Evaluation: 08/18/18 Time of Evaluation: 08:00 - Subjective Subjective: events noted may need debridement Objective - Vital Signs/Intake and Output Vital Signs (last 24 hours): Temp Pulse Resp BP Pulse Ox 98.7 F 60 20 121/67 99 08/18/18 07:00 08/18/18 07:00 08/18/18 07:00 08/18/18 07:00 08/18/18 07:00 - Medications Medications: Current Medications Enoxaparin Sodium (Lovenox) 40 mg SC DAILY [facility] Last Admin: 08/18/18 09:00 Dose: 40 mg Vancomycin HCl (Vancomycin 1gm In Normal Saline Addvantage) 1 gm in 250 mls @ 166.667 mls/hr IV STAT [facility]; Protocol Last Admin: 08/15/18 12:48 Dose: 166.667 mls/hr Piperacillin Sod/Tazobactam (Sod 3.375 gm/ Sodium Chloride) 100 mls @ 200 mls/hr IVPB Q6H [facility]; Protocol Last Admin: 08/18/18 09:45 Dose: 200 mls/hr Sodium Chloride (Sodium Chloride 0.9%) 1,000 mls @ 50 mls/hr IV .Q20H [facility] Last Admin: 08/18/18 05:00 Dose: Not Given Vancomycin HCl 1 gm/ Sodium (Chloride) 250 mls @ 166.7 mls/hr IVPB DAILY [facility]; Protocol Last Admin: 08/18/18 09:45 Dose: 166.7 mls/hr Insulin Aspart (Novolog) 0 unit SC ACHS [facility]; Protocol Last Admin: 08/18/18 11:47 Dose: 4 units Methadone HCl (Methadone) 110 mg PO DAILY [facility] Last Admin: 08/18/18 09:00 Dose: 110 mg Morphine Sulfate (Morphine) 4 mg IV Q4 PRN PRN Reason: Pain, severe (8-10) Last Admin: 08/17/18 21:23 Dose: 4 mg Naproxen (Anaprox Ds) 550 mg PO BID [facility] Last Admin: 08/18/18 09:00 Dose: 550 mg Nicotine (Nicoderm Cq) 1 patch TD DAILY [facility] Last Admin: 08/18/18 09:00 Dose: 1 patch Pantoprazole Sodium (Protonix Ec Tab) 40 mg PO DAILY [facility] Last Admin: 08/18/18 09:00 Dose: 40 mg - Labs Labs: 08/18/18 07:25 08/18/18 07:25 PT 12.4 SECONDS (9.7-12.2) H 08/18/18 11:00 INR 1.1 08/18/18 11:00 APTT 25 SECONDS (21-34) 08/18/18 11:00 - Constitutional Appears: Non-toxic, Chronically Ill - Head Exam Head Exam: NORMOCEPHALIC - Eye Exam Eye Exam: absent: Scleral icterus - ENT Exam ENT Exam: Mucous Membranes Dry - Neck Exam Neck Exam: absent: Lymphadenopathy - Respiratory Exam Respiratory Exam: Decreased Breath Sounds - Cardiovascular Exam Cardiovascular Exam: REGULAR RHYTHM Assessment and Plan (1) Diabetes mellitus Status: Acute (2) Osteomyelitis of ankle and foot Status: Suspected (3) Cellulitis Status: Acute (4) Puncture wound of foot with foreign body Status: Acute
--- NOTE | 2018-08-18 13:53 | CP.PCM.CON ---
History of Present Illness - History of Present Illness History of Present Illness: CC: Preop Clearence HPI: 47 year old man with DM, Tobacco abuse, ex IVDU. He is reporting he can perform >4 METS daily. He is reporting severe pain in right leg. Pain is worse with palpation. Pain is occuring in the context of abscess and cellulites. Duration is 2 months for the condition. Review of Systems - Review of Systems All systems: reviewed and no additional remarkable complaints except Past Patient History - Past Social History Smoking Status: Heavy Smoker > 10 Cigarettes Daily - PULMONARY Hx Asthma: Yes - ENDOCRINE/METABOLIC Hx Endocrine Disorders: Yes Hx Diabetes Mellitus Type 2: Yes - INTEGUMENTARY Hx Cellulitis: Yes - MUSCULOSKELETAL/RHEUMATOLOGICAL Hx Falls: No - PSYCHIATRIC Hx Substance Use: Yes - SURGICAL HISTORY Hx Surgeries: No - ANESTHESIA Hx Anesthesia: No Hx Anesthesia Reactions: No Hx Malignant Hyperthermia: No Has any member of the family had a problem w/ anesthesia?: No Meds Allergies/Adverse Reactions: Allergies Allergy/AdvReac Type Severity Reaction Status Date / Time No Known Allergies Allergy Verified 08/15/18 11:07 - Medications Medications: Current Medications Enoxaparin Sodium (Lovenox) 40 mg SC DAILY [facility] Last Admin: 08/18/18 09:00 Dose: 40 mg Vancomycin HCl (Vancomycin 1gm In Normal Saline Addvantage) 1 gm in 250 mls @ 166.667 mls/hr IV STAT [facility]; Protocol Last Admin: 08/15/18 12:48 Dose: 166.667 mls/hr Piperacillin Sod/Tazobactam (Sod 3.375 gm/ Sodium Chloride) 100 mls @ 200 mls/hr IVPB Q6H [facility]; Protocol Last Admin: 08/18/18 09:45 Dose: 200 mls/hr Sodium Chloride (Sodium Chloride 0.9%) 1,000 mls @ 50 mls/hr IV .Q20H [facility] Last Admin: 08/18/18 05:00 Dose: Not Given Vancomycin HCl 1 gm/ Sodium (Chloride) 250 mls @ 166.7 mls/hr IVPB DAILY [facility]; Protocol Last Admin: 08/18/18 09:45 Dose: 166.7 mls/hr Insulin Aspart (Novolog) 0 unit SC ACHS [facility]; Protocol Last Admin: 08/18/18 11:47 Dose: 4 units Methadone HCl (Methadone) 110 mg PO DAILY [facility] Last Admin: 08/18/18 09:00 Dose: 110 mg Morphine Sulfate (Morphine) 4 mg IV Q4 PRN PRN Reason: Pain, severe (8-10) Last Admin: 08/17/18 21:23 Dose: 4 mg Naproxen (Anaprox Ds) 550 mg PO BID [facility] Last Admin: 08/18/18 09:00 Dose: 550 mg Nicotine (Nicoderm Cq) 1 patch TD DAILY [facility] Last Admin: 08/18/18 09:00 Dose: 1 patch Pantoprazole Sodium (Protonix Ec Tab) 40 mg PO DAILY [facility] Last Admin: 08/18/18 09:00 Dose: 40 mg Physical Exam - Constitutional Appears: Well, Non-toxic - Head Exam Head Exam: ATRAUMATIC, NORMOCEPHALIC - Eye Exam Eye Exam: PERRL. absent: Scleral icterus - ENT Exam ENT Exam: Normal Exam, Normal External Ear Exam Additional comments: Poor dentition - Neck Exam Neck exam: Negative for: Lymphadenopathy, Thyromegaly - Respiratory Exam Respiratory Exam: Clear to Auscultation Bilateral, NORMAL BREATHING PATTERN - Cardiovascular Exam Cardiovascular Exam: REGULAR RHYTHM, RRR, +S1, +S2. absent: JVD Additional comments: Right foot abcess, erythmea and edema - GI/Abdominal Exam GI & Abdominal Exam: Normal Bowel Sounds. absent: Organomegaly - Extremities Exam Extremities exam: Positive for: joint swelling, pedal edema - Neurological Exam Neurological exam: CN II-XII Intact, Oriented x3 - Psychiatric Exam Psychiatric exam: Normal Affect, Normal Mood Results - Vital Signs Recent Vital Signs: Last Vital Signs Temp 98.7 F 08/18/18 07:00 Pulse 60 08/18/18 07:00 Resp 20 08/18/18 07:00 BP 121/67 08/18/18 07:00 Pulse Ox 99 08/18/18 07:00 - Labs Result Diagrams: 08/18/18 07:25 08/18/18 07:25 Labs: Laboratory Results - last 24 hr 08/17/18 08/17/18 08/18/18 16:01 21:08 05:40 WBC RBC Hgb Hct MCV MCH MCHC RDW Plt Count MPV Neut % (Auto) Lymph % (Auto) [place]isher % (Auto) Eos % (Auto) Baso % (Auto) Neut # (Auto) Lymph # (Auto) [place] # (Auto) Eos # (Auto) Baso # (Auto) PT INR APTT Sodium Potassium Chloride Carbon Dioxide Anion Gap BUN Creatinine Est GFR ( Amer) Est GFR (Non-Af Amer) POC Glucose (mg/dL) 251 H 225 H 196 H Random Glucose Calcium 08/18/18 08/18/18 08/18/18 07:25 07:25 11:00 WBC 9.0 RBC 4.52 Hgb 13.1 Hct 38.4 MCV 85.1 MCH 29.0 MCHC 34.1 RDW 13.3 Plt Count 282 MPV 8.8 Neut % (Auto) 59.5 Lymph % (Auto) 27.6 Kingfisher % (Auto) 7.5 Eos % (Auto) 4.6 H Baso % (Auto) 0.8 Neut # (Auto) 5.4 Lymph # (Auto) 2.5 Kingfisher # (Auto) 0.7 Eos # (Auto) 0.4 Baso # (Auto) 0.1 PT 12.4 H INR 1.1 APTT 25 Sodium 137 Potassium 4.0 Chloride 103 Carbon Dioxide 29 Anion Gap 9 L BUN 13 Creatinine 0.6 L Est GFR ( Amer) > 60 Est GFR (Non-Af Amer) > 60 POC Glucose (mg/dL) Random Glucose 190 H Calcium 8.4 L 08/18/18 11:16 WBC RBC Hgb Hct MCV MCH MCHC RDW Plt Count MPV Neut % (Auto) Lymph % (Auto) Kingfisher % (Auto) Eos % (Auto) Baso % (Auto) Neut # (Auto) Lymph # (Auto) [place]isher # (Auto) Eos # (Auto) Baso # (Auto) PT INR APTT Sodium Potassium Chloride Carbon Dioxide Anion Gap BUN Creatinine Est GFR ( Amer) Est GFR (Non-Af Amer) POC Glucose (mg/dL) 308 H Random Glucose Calcium - EKG Data EKG Interpreted by: Myself EKG shows normal: Sinus rhythm Rate: Normal - Imaging and Cardiology MRI Foot Status: Image reviewed by me Additional comment: No osteomyelitis Assessment & Plan - Assessment and Plan (Free Text) Assessment: 47 year old man with right foot abcess and cellutitis he is acceptable risk for urgent I & D no further cardiac work up is required, ABX, Wound care which likely will benefit from compression Diabetes is chronic and poorly controlled Tobacco abuse is chronic and poorly controlled. We discussed for >10 minutes on the negative effect of tobacco on his vascular system. He is precontemplative. - Date & Time Date: 08/18/18 Time: 13:56
[2018-08-18] MEDS: Morphine 4 MG/ML VIAL IV PRN ×2 (14:28→19:50)
--- NOTE | 2018-08-18 17:04 | CARD ---
APPROVED REPORT Date of service: 08/17/2018 EKG Measurement Heart [id number] <Conclusion> Normal sinus rhythm Normal ECG
--- NOTE | 2018-08-18 17:53 | CP.PCM.PN ---
Subjective - Date & Time of Evaluation Date of Evaluation: 08/18/18 Time of Evaluation: 15:00 - Subjective Subjective: Podiatry Progress Note - Dr. Carter 47 y/o male with PMHx of DM and asthma seen and evaluated at bedside regarding right foot cellulitis with abscess. Patient reports that the pain to the right foot his improved since the bedside incision and drainage yesterday. Reports able to walk better as well. Patient reports feeling as if the fluid is filling up again. Reports seeing drainage on the dressing and felt the need to take the dressing off. Patient seen at bedside with no dressing to the right lower extremity. Patient reports seeing the medical engineer earlier. Reports understanding that he will go to the operation room tomorrow for incision and drainage with debridement of all nonviable soft tissue. Patient denies F/N/V/CP/SOB. Objective - Vital Signs/Intake and Output Vital Signs (last 24 hours): Temp Pulse Resp BP Pulse Ox 97.9 F 65 20 165/91 H 95 08/18/18 16:00 08/18/18 16:00 08/18/18 16:00 08/18/18 16:00 08/18/18 16:00 Intake and Output: 08/18/18 08/18/18 06:59 18:59 Intake Total 1300 Output Total 1800 Balance -500 - Medications Medications: Current Medications Enoxaparin Sodium (Lovenox) 40 mg SC DAILY [facility] Last Admin: 08/18/18 09:00 Dose: 40 mg Vancomycin HCl (Vancomycin 1gm In Normal Saline Addvantage) 1 gm in 250 mls @ 166.667 mls/hr IV STAT [facility]; Protocol Last Admin: 08/15/18 12:48 Dose: 166.667 mls/hr Piperacillin Sod/Tazobactam (Sod 3.375 gm/ Sodium Chloride) 100 mls @ 200 mls/hr IVPB Q6H [facility]; Protocol Last Admin: 08/18/18 09:45 Dose: 200 mls/hr Vancomycin HCl 1 gm/ Sodium (Chloride) 250 mls @ 166.7 mls/hr IVPB DAILY [facility]; Protocol Last Admin: 08/18/18 09:45 Dose: 166.7 mls/hr Insulin Aspart (Novolog) 0 unit SC ACHS [facility]; Protocol Last Admin: 08/18/18 17:22 Dose: 2 units Methadone HCl (Methadone) 110 mg PO DAILY [facility] Last Admin: 08/18/18 09:00 Dose: 110 mg Morphine Sulfate (Morphine) 4 mg IV Q4 PRN PRN Reason: Pain, severe (8-10) Last Admin: 08/18/18 14:28 Dose: 4 mg Naproxen (Anaprox Ds) 550 mg PO BID [facility] Last Admin: 08/18/18 17:22 Dose: 550 mg Nicotine (Nicoderm Cq) 1 patch TD DAILY [facility] Last Admin: 08/18/18 09:00 Dose: 1 patch Pantoprazole Sodium (Protonix Ec Tab) 40 mg PO DAILY [facility] Last Admin: 08/18/18 09:00 Dose: 40 mg - Labs Labs: 08/18/18 07:25 08/18/18 07:25 PT 12.4 SECONDS (9.7-12.2) H 08/18/18 11:00 INR 1.1 08/18/18 11:00 APTT 25 SECONDS (21-34) 08/18/18 11:00 - Constitutional Appears: Well, Non-toxic, No Acute Distress - Extremities Exam Extremities Exam: absent: Calf Tenderness Additional comments: Lower extremity focused exam: Vasc: DP pulse 1/4 on R, PT lightly palpable. DP/PT pulses 2/4 on L. Non-pitting pedal edema extending from ankle distally to digits on R; no pedal edema on LLE. CFT < 3 sec to all digits x10. Temperature gradient warm to warm on RLE; warm to cool on LLE Derm: Circular abscess with lesion noted to dorsum of right foot measuring approximately 4cm in diameter with arsen-wound exhibiting blistered skin. Central aspect of wound exhibits hematoma formation. Arsen-wound erythema noted and marked using skin marking. Erythema is decreasing. Drainage noted on the dressing, mild malodor noted. Erythematous changes noted from distal 2/3 of leg distally to digits of foot- improving, decreasing in color and area. Notice-able fluctanace with abscess formation (less compared to yesterday on 08/17/18) Neuro: protective sensation is grossly intact Ortho: moderate pain noted to palpation of right dorsal foot at site of wound, MM is 5/5 in all four compartments: dorsiflexion, plantarflexion, inversion and eversion - Neurological Exam Neurological Exam: Alert, Awake, Oriented x3 - Psychiatric Exam Psychiatric exam: Normal Affect, Normal Mood Assessment and Plan - Assessment and Plan (Free Text) Assessment: 47 y/o male with PMHx of DM and asthma with right lower extremity cellulitis and foot abscess Plan: Patient seen and evaluate at bedside Discussed plan in detail with Dr. Carter Vitals, labs, chart reviewed WBC 9.0 on 08/15 R foot x-rays reviewed, no acute osseous abnormalities noted, marked soft tissue edema noted to forefoot and midfoot RLE MRI- Subcutaneous fluid collection in the mid to distal right foot superficial to the distal extensor tendons measures 2.9 x 2.5 x 2.2 centimeter may represent subcutaneous abscess. No evidence of osteomyelitis. -Note MRI taken after bedside I and D 5 cc of dark red drainage expressed from right foot abscess. Wound site cleaned with copious amounts of saline solution mixed betadine, and dress with betadine wet to dry Patient will go to the OR for an incision and drainage and debridement of all nonviable soft tissue right foot tomorrow Friday with Dr. Carter at 12PM Per cardiology, patient is acceptable risk for urgent I & D no further cardiac work up is required Wound culture right foot- pending Abx per ID recommendations Patient may WBAT in surgical shoe Podiatry will continue to follow patient while in house
--- NOTE | 2018-08-18 21:13 | CP.PCM.PN ---
Subjective - Date & Time of Evaluation Date of Evaluation: 08/18/18 Time of Evaluation: 07:30 - Subjective Subjective: clinically same Objective - Vital Signs/Intake and Output Vital Signs (last 24 hours): Temp Pulse Resp BP Pulse Ox 97.9 F 65 20 165/91 H 95 08/18/18 16:00 08/18/18 16:00 08/18/18 16:00 08/18/18 16:00 08/18/18 16:00 Intake and Output: 08/18/18 08/19/18 18:59 06:59 Intake Total 1300 Output Total 1800 Balance -500 - Medications Medications: Current Medications Enoxaparin Sodium (Lovenox) 40 mg SC DAILY [facility] Last Admin: 08/18/18 09:00 Dose: 40 mg Vancomycin HCl (Vancomycin 1gm In Normal Saline Addvantage) 1 gm in 250 mls @ 166.667 mls/hr IV STAT [facility]; Protocol Last Admin: 08/15/18 12:48 Dose: 166.667 mls/hr Piperacillin Sod/Tazobactam (Sod 3.375 gm/ Sodium Chloride) 100 mls @ 200 mls/hr IVPB Q6H [facility]; Protocol Last Admin: 08/18/18 09:45 Dose: 200 mls/hr Vancomycin HCl 1 gm/ Sodium (Chloride) 250 mls @ 166.7 mls/hr IVPB DAILY [facility]; Protocol Last Admin: 08/18/18 09:45 Dose: 166.7 mls/hr Insulin Aspart (Novolog) 0 unit SC ACHS [facility]; Protocol Last Admin: 08/18/18 17:22 Dose: 2 units Methadone HCl (Methadone) 110 mg PO DAILY [facility] Last Admin: 08/18/18 09:00 Dose: 110 mg Morphine Sulfate (Morphine) 4 mg IV Q4 PRN PRN Reason: Pain, severe (8-10) Last Admin: 08/18/18 19:50 Dose: 4 mg Naproxen (Anaprox Ds) 550 mg PO BID [facility] Last Admin: 08/18/18 17:22 Dose: 550 mg Nicotine (Nicoderm Cq) 1 patch TD DAILY [facility] Last Admin: 08/18/18 09:00 Dose: 1 patch Pantoprazole Sodium (Protonix Ec Tab) 40 mg PO DAILY [facility] Last Admin: 08/18/18 09:00 Dose: 40 mg - Labs Labs: 08/18/18 07:25 08/18/18 07:25 PT 12.4 SECONDS (9.7-12.2) H 08/18/18 11:00 INR 1.1 08/18/18 11:00 APTT 25 SECONDS (21-34) 08/18/18 11:00 Assessment and Plan - Assessment and Plan (Free Text) Plan: pt medically stable for surg with rsik related age nad comobid conditon also clered by cardio
[2018-08-19] MEDS: Piperacillin/Tazobact 3.375 GM in Sodium Chloride 100 ML IVPB SCH ×4 (05:06→21:51)
[2018-08-19] MEDS: Morphine 4 MG/ML VIAL IV PRN (05:58)
[2018-08-19] MEDS: (Novolog) Insulin Aspart, Recombinant 100 u/ml 10 ml vial SC SCH ×4 (08:27→21:50)
[2018-08-19] MEDS: Pantoprazole 40 mg EC Tab PO SCH (09:44)
[2018-08-19] MEDS: Naproxen 550 mg Tab PO SCH ×2 (09:44→17:46)
[2018-08-19] MEDS ORDERED: Methadone 40 mg Tab PO SCH (10:00)
--- NOTE | 2018-08-19 11:30 | CP.PCM.PN ---
Subjective - Date & Time of Evaluation Date of Evaluation: 08/19/18 Time of Evaluation: 10:00 - Subjective Subjective: Podiatry Progress Note - Dr. Carter 47 y/o male with PMHx of DM and asthma seen and evaluated at bedside regarding right foot cellulitis with abscess. Patient is scheduled for Incision and drainage today with Dr. Carter. Patient seen at bedside with dressing to right lower extremity clean dry and intact. Patient understands podiatry plan to performe right foot incision and drainage with debridement of all nonviable soft tissue. Patient signed consent for surgery. Medical clearance in chart. Patient denies F/N/V/CP/SOB. Objective - Vital Signs/Intake and Output Vital Signs (last 24 hours): Temp Pulse Resp BP Pulse Ox 98 F 60 20 151/88 H 95 08/19/18 08:29 08/19/18 08:29 08/19/18 08:29 08/19/18 08:29 08/19/18 08:29 - Medications Medications: Current Medications Enoxaparin Sodium (Lovenox) 40 mg SC DAILY [facility] Last Admin: 08/18/18 09:00 Dose: 40 mg Vancomycin HCl (Vancomycin 1gm In Normal Saline Addvantage) 1 gm in 250 mls @ 166.667 mls/hr IV STAT [facility]; Protocol Last Admin: 08/15/18 12:48 Dose: 166.667 mls/hr Piperacillin Sod/Tazobactam (Sod 3.375 gm/ Sodium Chloride) 100 mls @ 200 ml s/hr IVPB Q6H [facility]; Protocol Last Admin: 08/19/18 09:46 Dose: 200 mls/hr Vancomycin HCl 1 gm/ Sodium (Chloride) 250 mls @ 166.7 mls/hr IVPB DAILY [facility]; Protocol Last Admin: 08/19/18 09:59 Dose: 166.7 mls/hr Insulin Aspart (Novolog) 0 unit SC ACHS [facility]; Protocol Last Admin: 08/19/18 08:27 Dose: Not Given Methadone HCl (Methadone) 110 mg PO DAILY [facility] Last Admin: 08/19/18 09:42 Dose: 110 mg Morphine Sulfate (Morphine) 4 mg IV Q4 PRN PRN Reason: Pain, severe (8-10) Last Admin: 08/19/18 05:58 Dose: 4 mg Naproxen (Anaprox Ds) 550 mg PO BID [facility] Last Admin: 08/19/18 09:44 Dose: Not Given Nicotine (Nicoderm Cq) 1 patch TD DAILY [facility] Last Admin: 08/19/18 10:03 Dose: 1 patch Pantoprazole Sodium (Protonix Ec Tab) 40 mg PO DAILY [facility] Last Admin: 08/19/18 09:44 Dose: Not Given - Labs Labs: 08/18/18 07:25 08/18/18 07:25 PT 12.4 SECONDS (9.7-12.2) H 08/18/18 11:00 INR 1.1 08/18/18 11:00 APTT 25 SECONDS (21-34) 08/18/18 11:00 - Constitutional Appears: Well, Non-toxic, No Acute Distress - Head Exam Head Exam: ATRAUMATIC - ENT Exam ENT Exam: Mucous Membranes Moist, Normal Exam - Respiratory Exam Respiratory Exam: NORMAL BREATHING PATTERN - Extremities Exam Additional comments: Dressing to right lower extremity clean dry and intact - Neurological Exam Neurological Exam: Alert, Awake, Oriented x3 - Psychiatric Exam Psychiatric exam: Normal Affect, Normal Mood - Skin Skin Exam: Normal Color, Warm Assessment and Plan - Assessment and Plan (Free Text) Assessment: 47 y/o male with PMHx of DM and asthma with right lower extremity cellulitis and foot abscess Scheduled for Right foot incision and drainage today Plan: Patient seen and evaluate at bedside Patient to OR today for right foot Incision and drainage Discussed plan in detail with Dr. Carter Vitals, labs, chart reviewed WBC 9.0 on 08/18, afebrile R foot x-rays reviewed, no acute osseous abnormalities noted, marked soft tissue edema noted to forefoot and midfoot RLE MRI- Subcutaneous fluid collection in the mid to distal right foot superfici al to the distal extensor tendons measures 2.9 x 2.5 x 2.2 centimeter may represent subcutaneous abscess. No evidence of osteomyelitis. -Note MRI taken after bedside I and D Podiatry plan for right foot incision and drainage explain to the patient, patient signed consent for surgery All risks and benefits of surgery explained to the patient No guarantee was made as to outcome of the surgery Per cardiology, patient is acceptable risk for urgent I & D no further cardiac work up is required Wound culture right foot- pending Abx per ID recommendations Non-weight bearing to right foot Podiatry will continue to follow patient while in house
[2018-08-19] MEDS ORDERED: Lidocaine Hydrochloride 20 ML INJ ONE (12:21)
[2018-08-19] MEDS ORDERED: Bupivacaine 0.25% 20 ML INJ IJ ONE (12:22)
[2018-08-19] MEDS ORDERED: Midazolam 2 MG/2 ML VIAL ONE ×2 (12:26)
[2018-08-19] MEDS ORDERED: Propofol 10 mg/ml Inj (20 ML) ONE (12:35)
[2018-08-19] MEDS ORDERED: HYDROmorphone 0.5 mg/0.5 ml ISec IVP PRN (13:26)
[2018-08-19] MEDS ORDERED: Oxycodone/Acetaminophen 5/325 mg Tab PO PRN (13:31)
--- NOTE | 2018-08-19 13:44 | PCM.SURG1 ---
Surgeon's Initial Post Op Note - Surgeon's Notes Surgeon: Dr. Carter Shear Grinder Operator Helper: Dr. Norwood Type of Anesthesia: IV Sedation, Local Pre-Operative Diagnosis: Right foot abcess Operative Findings: Deep cultures collected in the OR Post-Operative Diagnosis: same Operation Performed: Right foot incision and drainage Specimen/Specimens Removed: none Estimated Blood Loss: EBL {In ML}: 30 Blood Products Given: N/A Drains Used: No Drains Post-Op Condition: Good Date of Surgery/Procedure: 08/19/18 Time of Surgery/Procedure: 12:00
--- NOTE | 2018-08-19 14:48 | CP.PCM.PN ---
"Subjective - Date & Time of Evaluation Date of Evaluation: 08/19/18 Time of Evaluation: 10:10 - Subjective Subjective: Patient seen and examined at bedside. No overnight events reported. He denies any fevers, chest pain, SOB, abdominal pain, changes in Bowel habits, or urinary symptoms. He is aware of surgery scheduled for 12. His pain is controlled. Objective - Vital Signs/Intake and Output Vital Signs (last 24 hours): Temp Pulse Resp BP Pulse Ox 97.1 F L 68 13 106/81 96 08/19/18 13:25 08/19/18 13:25 08/19/18 13:25 08/19/18 13:25 08/19/18 13:25 Intake and Output: 08/19/18 08/19/18 06:59 18:59 Intake Total 110 Balance 110 - Medications Medications: Current Medications Acetaminophen (Tylenol 325mg Tab) 650 mg PO Q6 PRN PRN Reason: Pain, Mild (1-3) Enoxaparin Sodium (Lovenox) 40 mg SC DAILY [facility] Last Admin: 08/18/18 09:00 Dose: 40 mg Hydromorphone HCl (Dilaudid) 0.5 mg IVP Q5M PRN PRN Reason: Pain, moderate (4-7) Stop: 08/19/18 15:27 Vancomycin HCl (Vancomycin 1gm In Normal Saline Addvantage) 1 gm in 250 mls @ 166.667 mls/hr IV STAT [facility]; Protocol Last Admin: 08/15/18 12:48 Dose: 166.667 mls/hr Piperacillin Sod/Tazobactam (Sod 3.375 gm/ Sodium Chloride) 100 mls @ 200 mls/hr IVPB Q6H [facility]; Protocol Last Admin: 08/19/18 09:46 Dose: 200 mls/hr Vancomycin HCl 1 gm/ Sodium (Chloride) 250 mls @ 166.7 mls/hr IVPB DAILY [facility]; Protocol Last Admin: 08/19/18 09:59 Dose: 166.7 mls/hr Insulin Aspart (Novolog) 0 unit SC ACHS [facility]; Protocol Last Admin: 08/19/18 12:06 Dose: Not Given Methadone HCl (Methadone) 110 mg PO DAILY [facility] Last Admin: 08/19/18 09:42 Dose: 110 mg Morphine Sulfate (Morphine) 4 mg IV Q4 PRN PRN Reason: Pain, severe (8-10) Last Admin: 08/19/18 05:58 Dose: 4 mg Naproxen (Anaprox Ds) 550 mg PO BID [facility] Last Admin: 08/19/18 09:44 Dose: Not Given Nicotine (Nicoderm Cq) 1 patch TD DAILY [facility] Last Admin: 08/19/18 10:03 Dose: 1 patch Oxycodone/Acetaminophen (Percocet 5/325 Mg Tab) 1 tab PO Q4H PRN PRN Reason: Pain, moderate (4-7) Stop: 08/22/18 13:32 Oxycodone/Acetaminophen (Percocet 5/325 Mg Tab) 2 tab PO Q4H PRN PRN Reason: Pain, severe (8-10) Stop: 08/22/18 13:32 Pantoprazole Sodium (Protonix Ec Tab) 40 mg PO DAILY [facility] Last Admin: 08/19/18 09:44 Dose: Not Given - Labs Labs: 08/18/18 07:25 08/18/18 07:25 PT 12.4 SECONDS (9.7-12.2) H 08/18/18 11:00 INR 1.1 08/18/18 11:00 APTT 25 SECONDS (21-34) 08/18/18 11:00 - Constitutional Appears: Well, Non-toxic, No Acute Distress - Head Exam Head Exam: ATRAUMATIC, NORMAL INSPECTION, NORMOCEPHALIC - Eye Exam Eye Exam: Normal appearance - ENT Exam ENT Exam: Mucous Membranes Moist - Neck Exam Neck Exam: Normal Inspection. absent: Lymphadenopathy - Cardiovascular Exam Cardiovascular Exam: RRR, +S1, +S2 - GI/Abdominal Exam GI & Abdominal Exam: Soft. absent: Tenderness - Extremities Exam Additional comments: Right Foot Dressing, CLean, Dry, and Intact. - Neurological Exam Neurological Exam: Alert, Awake, Oriented x3 - Psychiatric Exam Psychiatric exam: Normal Affect, Normal Mood - Skin Skin Exam: Dry, Warm Assessment and Plan - Assessment and Plan (Free Text) Assessment: This patient is a 47 year old male with a PMHx of DM II, and asthma admitted for evaluation and treatment of right foot cellulitis w/ abscess. Plan: Right Foot cellulitis w/ Abscess. S/P Right foot abscess I&D on 08/17/18 & 08/19/18 Podiatry Consulted (Dr. Carter), Recs Appreciated ID Consulted (Dr. Echols), Recs Appreciated. Foot X-ray (Admission): No acute fracture dislocation. Severe hallux valgus deformity. Forefoot midfoot dorsal soft tissue edema. Lower Ext MRI (08/17/18): Subcutaneous fluid collection in the mid to distal right foot superficial to the distal extensor tendons measures 2.9 x 2.5 x 2.2 centimeter may represent subcutaneous abscess. No evidence of osteomyelitis. Blood Culture (08/15/18): NEGATIVE | Wound Culture: (08/17/18): POSITIVE for Staph Aureus. Physical Therapy Eval/Tx | No Weight Bearing to Right Lower Ext. Meds: Tylenol PRN Morphine 4mg IVP PRN (Discontinued) Naproxen 550mg PO BID [facility] Percocet 1 tab & 2 tabs Q4H PRN Zosyn 3.375 Q6H [facility], F/U with ID about DC'ing since sensitivities returned Vancomycin 1gram Daily. DM II Meds: Insulin Sliding Scale ACHS Asthma Meds: DuoNebs PRN Proph Lovenox, SCD Contraindicated Protonix Daily Heart Health Diet. Patient discussed with Dr. Kaylyn Turcios, PGY-2"
[2018-08-19] MEDS ORDERED: Albuterol-Ipratrop 3 mg / 0.5 (3 ml) UD INH PRN (15:06)
--- NOTE | 2018-08-19 16:28 | CP.PCM.PN ---
Subjective - Date & Time of Evaluation Date of Evaluation: 08/19/18 Time of Evaluation: 07:15 - Subjective Subjective: clinically same Objective - Vital Signs/Intake and Output Vital Signs (last 24 hours): Temp Pulse Resp BP Pulse Ox 97.1 F L 62 11 L 137/98 H 99 08/19/18 14:25 08/19/18 14:25 08/19/18 14:25 08/19/18 14:25 08/19/18 14:25 Intake and Output: 08/19/18 08/19/18 06:59 18:59 Intake Total 135 Output Total 100 Balance 35 - Medications Medications: Current Medications Acetaminophen (Tylenol 325mg Tab) 650 mg PO Q6 PRN PRN Reason: Pain, Mild (1-3) Albuterol/Ipratropium (Duoneb 3 Mg/0.5 Mg (3 Ml) Ud) 3 ml INH RQ4 PRN PRN Reason: Shortness of Breath Enoxaparin Sodium (Lovenox) 40 mg SC DAILY [facility] Last Admin: 08/18/18 09:00 Dose: 40 mg Vancomycin HCl (Vancomycin 1gm In Normal Saline Addvantage) 1 gm in 250 mls @ 166.667 mls/hr IV STAT [facility]; Protocol Last Admin: 08/15/18 12:48 Dose: 166.667 mls/hr Piperacillin Sod/Tazobactam (Sod 3.375 gm/ Sodium Chloride) 100 mls @ 200 mls/hr IVPB Q6H [facility]; Protocol Last Admin: 08/19/18 09:46 Dose: 200 mls/hr Vancomycin HCl 1 gm/ Sodium (Chloride) 250 mls @ 166.7 mls/hr IVPB DAILY [facility]; Protocol Last Admin: 08/19/18 09:59 Dose: 166.7 mls/hr Insulin Aspart (Novolog) 0 unit SC ACHS [facility]; Protocol Last Admin: 08/19/18 12:06 Dose: Not Given Methadone HCl (Methadone) 110 mg PO DAILY [facility] Last Admin: 08/19/18 09:42 Dose: 110 mg Naproxen (Anaprox Ds) 550 mg PO BID [facility] Last Admin: 08/19/18 09:44 Dose: Not Given Nicotine (Nicoderm Cq) 1 patch TD DAILY [facility] Last Admin: 08/19/18 10:03 Dose: 1 patch Oxycodone/Acetaminophen (Percocet 5/325 Mg Tab) 1 tab PO Q4H PRN PRN Reason: Pain, moderate (4-7) Stop: 08/22/18 13:32 Oxycodone/Acetaminophen (Percocet 5/325 Mg Tab) 2 tab PO Q4H PRN PRN Reason: Pain, severe (8-10) Stop: 08/22/18 13:32 Pantoprazole Sodium (Protonix Ec Tab) 40 mg PO DAILY [facility] Last Admin: 08/19/18 09:44 Dose: Not Given - Labs Labs: 08/18/18 07:25 08/18/18 07:25 PT 12.4 SECONDS (9.7-12.2) H 08/18/18 11:00 INR 1.1 08/18/18 11:00 APTT 25 SECONDS (21-34) 08/18/18 11:00 - Constitutional Appears: Well - Head Exam Head Exam: ATRAUMATIC, NORMAL INSPECTION, NORMOCEPHALIC - Eye Exam Eye Exam: EOMI, Normal appearance, PERRL Pupil Exam: NORMAL ACCOMODATION, PERRL - ENT Exam ENT Exam: Mucous Membranes Moist, Normal Exam - Neck Exam Neck Exam: Full ROM, Normal Inspection. absent: Lymphadenopathy - Respiratory Exam Respiratory Exam: Decreased Breath Sounds - Cardiovascular Exam Cardiovascular Exam: REGULAR RHYTHM, +S1, +S2 - GI/Abdominal Exam GI & Abdominal Exam: Soft, Diminished Bowel Sounds - Rectal Exam Rectal Exam: Deferred
[2018-08-19] MEDS: Oxycodone/Acetaminophen 5/325 mg Tab PO PRN (17:46)
[2018-08-20] MEDS: Piperacillin/Tazobact 3.375 GM in Sodium Chloride 100 ML IVPB SCH ×4 (03:37→22:10)
[2018-08-20] MEDS: Oxycodone/Acetaminophen 5/325 mg Tab PO PRN ×4 (05:40→22:09)
[2018-08-20 07:17] LABS: BASO % 0.4 % (0.0-2.0); EOS # 0.4 K/uL (0.0-0.7); EOS % 4.6 % (0.0-4.0); HEMOGLOBIN 13.2 g/dL (12.0-18.0); LYMPH # 2.3 K/uL (1.0-4.3); LYMPH % 27.1 % (20.0-40.0); MEAN CELL VOLUME 86.3 fL (80.0-94.0); MEAN CORPUSCULAR HEMOGLOBIN 29.6 pg (27.0-31.0); MEAN CORPUSCULAR HGB CONC 34.3 g/dL (33.0-37.0); MEAN PLATELET VOLUME 8.3 fL (7.2-11.7); MONO # 0.5 K/uL (0.0-0.8); NEUT # 5.2 K/uL (1.8-7.0); NEUT % 61.9 % (50.0-75.0); NRBC % 0.1 % (0.0-2.0); RBC 4.46 Mil/uL (4.40-5.90); RED CELL DISTRIBUTION WIDTH 13.4 % (11.5-14.5); WHITE BLOOD COUNT 8.4 K/uL (4.8-10.8)
[2018-08-20 07:42] LABS: ALB/GLOB RATIO 0.9 (1.0-2.1); ALBUMIN 3.2 g/dL (3.5-5.0); ALT/SGPT 34 U/L (21-72); AST/SGOT 35 U/L (17-59); BLOOD UREA NITROGEN 13 mg/dL (9-20); CALCIUM 8.5 mg/dl (8.6-10.4); GFR NON-AFRICAN AMERICAN > 60
[2018-08-20] MEDS: (Novolog) Insulin Aspart, Recombinant 100 u/ml 10 ml vial SC SCH ×4 (08:30→22:12)
[2018-08-20] MEDS: Pantoprazole 40 mg EC Tab PO SCH (10:40)
[2018-08-20] MEDS: Naproxen 550 mg Tab PO SCH ×2 (10:40→17:47)
[2018-08-20] MEDS: Enoxaparin 40 mg Syringe SC SCH (10:40)
--- NOTE | 2018-08-20 13:34 | CP.PCM.PN ---
Subjective - Date & Time of Evaluation Date of Evaluation: 08/20/18 Time of Evaluation: 09:15 - Subjective Subjective: PGY2 Progress note for Dr. Kaylyn Rapp Patient was seen and examined at bedside in no acute distress. Patient reports feeling well except for mild post op pain in his right foot. He requests to shower; otherwise, patient denies chest pain, palpitations, dyspnea, cough, fevers, headaches, abdominal pain, nausea, vomiting, diarrhea, constipation, dysuria. Objective - Vital Signs/Intake and Output Vital Signs (last 24 hours): Temp Pulse Resp BP Pulse Ox 97.8 F 67 20 135/72 96 08/20/18 07:35 08/20/18 07:35 08/20/18 07:35 08/20/18 07:35 08/20/18 07:35 Intake and Output: 08/20/18 08/20/18 06:59 18:59 Intake Total 340 Output Total 1000 Balance -660 - Medications Medications: Current Medications Acetaminophen (Tylenol 325mg Tab) 650 mg PO Q6 PRN PRN Reason: Pain, Mild (1-3) Albuterol/Ipratropium (Duoneb 3 Mg/0.5 Mg (3 Ml) Ud) 3 ml INH RQ4 PRN PRN Reason: Shortness of Breath Enoxaparin Sodium (Lovenox) 40 mg SC DAILY [facility] Last Admin: 08/20/18 10:40 Dose: 40 mg Piperacillin Sod/Tazobactam (Sod 3.375 gm/ Sodium Chloride) 100 mls @ 200 mls/hr IVPB Q6H [facility]; Protocol Last Admin: 08/20/18 11:29 Dose: 200 mls/hr Vancomycin HCl 1 gm/ Sodium (Chloride) 250 mls @ 166.7 mls/hr IVPB DAILY [facility]; Protocol Last Admin: 08/20/18 10:46 Dose: 166.7 mls/hr Insulin Aspart (Novolog) 0 unit SC ACHS [facility]; Protocol Last Admin: 08/20/18 12:19 Dose: 3 units Methadone HCl (Methadone) 110 mg PO DAILY [facility] Last Admin: 08/20/18 10:38 Dose: 110 mg Naproxen (Anaprox Ds) 550 mg PO BID [facility] Last Admin: 08/20/18 10:40 Dose: 550 mg Nicotine (Nicoderm Cq) 1 patch TD DAILY [facility] Last Admin: 08/20/18 10:54 Dose: 1 patch Oxycodone/Acetaminophen (Percocet 5/325 Mg Tab) 1 tab PO Q4H PRN PRN Reason: Pain, moderate (4-7) Stop: 08/22/18 13:32 Oxycodone/Acetaminophen (Percocet 5/325 Mg Tab) 2 tab PO Q4H PRN PRN Reason: Pain, severe (8-10) Stop: 08/22/18 13:32 Last Admin: 08/20/18 12:24 Dose: 2 tab Pantoprazole Sodium (Protonix Ec Tab) 40 mg PO DAILY [facility] Last Admin: 08/20/18 10:40 Dose: 40 mg - Labs Labs: 08/20/18 07:03 08/20/18 07:03 PT 12.4 SECONDS (9.7-12.2) H 08/18/18 11:00 INR 1.1 08/18/18 11:00 APTT 25 SECONDS (21-34) 08/18/18 11:00 - Constitutional Appears: No Acute Distress - Head Exam Head Exam: ATRAUMATIC, NORMAL INSPECTION - Eye Exam Eye Exam: EOMI, Normal appearance - ENT Exam ENT Exam: Mucous Membranes Moist - Respiratory Exam Respiratory Exam: Clear to Ausculation Bilateral, NORMAL BREATHING PATTERN. absent: Rales, Rhonchi, Wheezes, Respiratory Distress - Cardiovascular Exam Cardiovascular Exam: REGULAR RHYTHM, +S1, +S2 - GI/Abdominal Exam GI & Abdominal Exam: Soft, Normal Bowel Sounds. absent: Distended, Firm, Guarding, Tenderness - Extremities Exam Additional comments: LLE- pulses palpable, sensation intact RLE- dressing and mary wrapped placed- clean, dry, intact; sensation intact; - Neurological Exam Neurological Exam: Alert, Awake, Oriented x3 - Psychiatric Exam Psychiatric exam: Normal Affect, Normal Mood - Skin Skin Exam: Dry, Normal Color, Warm Assessment and Plan - Assessment and Plan (Free Text) Plan: Right Foot cellulitis w/ Abscess. * S/P Right foot abscess I&D on 08/17/18 & 08/19/18 - Podiatry Consulted (Dr. Carter), help appreciated - ID Consulted (Dr. Echols), help appreciated. - Foot X-ray (Admission): No acute fracture dislocation. Severe hallux valgus deformity. Forefoot midfoot dorsal soft tissue edema. - Lower Ext MRI (08/17/18): Subcutaneous fluid collection in the mid to distal right foot superficial to the distal extensor tendons measures 2.9 x 2.5 x 2.2 centimeter may represent subcutaneous abscess. No evidence of osteomyelitis. - Blood Culture (08/15/18): NEGATIVE - Wound Culture: (08/17/18): POSITIVE for Staph Aureus. - Physical Therapy Eval/Tx: No Weight Bearing to Right Lower Ext. Medication: * Tylenol PRN * Morphine 4mg IVP PRN (Discontinued) * Naproxen 550mg PO BID [facility] * Percocet 1 tab & 2 tabs Q4H PRN * Zosyn 3.375 Q6H [facility] * Vancomycin 1gram IV Daily DM II - Insulin Sliding Scale ACHS - Accuchecks - Hypoglycemia protocol Asthma - DuoNebs Q4 PRN - O2 via NC prn Proph - DVT: Lovenox 40mg SC daily; SCD Contraindicated - Protonix 40mg PO Daily - Heart Healthy Diet - Case management referral for discharge planning All management/orders per Dr. Kaylyn Rapp.
--- NOTE | 2018-08-20 15:51 | CP.PCM.PN ---
Subjective - Date & Time of Evaluation Date of Evaluation: 08/20/18 Time of Evaluation: 07:15 - Subjective Subjective: clinically same Objective - Vital Signs/Intake and Output Vital Signs (last 24 hours): Temp Pulse Resp BP Pulse Ox 97.8 F 67 20 135/72 96 08/20/18 07:35 08/20/18 07:35 08/20/18 07:35 08/20/18 07:35 08/20/18 07:35 Intake and Output: 08/20/18 08/20/18 06:59 18:59 Intake Total 340 830 Output Total 1000 Balance -660 830 - Medications Medications: Current Medications Acetaminophen (Tylenol 325mg Tab) 650 mg PO Q6 PRN PRN Reason: Pain, Mild (1-3) Albuterol/Ipratropium (Duoneb 3 Mg/0.5 Mg (3 Ml) Ud) 3 ml INH RQ4 PRN PRN Reason: Shortness of Breath Enoxaparin Sodium (Lovenox) 40 mg SC DAILY [facility] Last Admin: 08/20/18 10:40 Dose: 40 mg Piperacillin Sod/Tazobactam (Sod 3.375 gm/ Sodium Chloride) 100 mls @ 200 mls/hr IVPB Q6H [facility]; Protocol Last Admin: 08/20/18 11:29 Dose: 200 mls/hr Vancomycin HCl 1 gm/ Sodium (Chloride) 250 mls @ 166.7 mls/hr IVPB DAILY [facility]; Protocol Last Admin: 08/20/18 10:46 Dose: 166.7 mls/hr Insulin Aspart (Novolog) 0 unit SC ACHS [facility]; Protocol Last Admin: 08/20/18 12:19 Dose: 3 units Methadone HCl (Methadone) 110 mg PO DAILY [facility] Last Admin: 08/20/18 10:38 Dose: 110 mg Naproxen (Anaprox Ds) 550 mg PO BID [facility] Last Admin: 08/20/18 10:40 Dose: 550 mg Nicotine (Nicoderm Cq) 1 patch TD DAILY [facility] Last Admin: 08/20/18 10:54 Dose: 1 patch Oxycodone/Acetaminophen (Percocet 5/325 Mg Tab) 1 tab PO Q4H PRN PRN Reason: Pain, moderate (4-7) Stop: 08/22/18 13:32 Oxycodone/Acetaminophen (Percocet 5/325 Mg Tab) 2 tab PO Q4H PRN PRN Reason: Pain, severe (8-10) Stop: 08/22/18 13:32 Last Admin: 08/20/18 12:24 Dose: 2 tab Pantoprazole Sodium (Protonix Ec Tab) 40 mg PO DAILY [facility] Last Admin: 08/20/18 10:40 Dose: 40 mg - Labs Labs: 08/20/18 07:03 08/20/18 07:03 PT 12.4 SECONDS (9.7-12.2) H 08/18/18 11:00 INR 1.1 08/18/18 11:00 APTT 25 SECONDS (21-34) 08/18/18 11:00 - Constitutional Appears: Well - Head Exam Head Exam: ATRAUMATIC, NORMAL INSPECTION, NORMOCEPHALIC - Eye Exam Eye Exam: EOMI, Normal appearance, PERRL Pupil Exam: NORMAL ACCOMODATION, PERRL - ENT Exam ENT Exam: Mucous Membranes Moist, Normal Exam - Neck Exam Neck Exam: Full ROM, Normal Inspection. absent: Lymphadenopathy - Respiratory Exam Respiratory Exam: Decreased Breath Sounds - Cardiovascular Exam Cardiovascular Exam: REGULAR RHYTHM, +S1, +S2 - GI/Abdominal Exam GI & Abdominal Exam: Soft, Diminished Bowel Sounds - Rectal Exam Rectal Exam: Deferred
--- NOTE | 2018-08-20 18:48 | CP.PCM.PN ---
Subjective - Date & Time of Evaluation Date of Evaluation: 08/20/18 Time of Evaluation: 18:44 - Subjective Subjective: Podiatry progress note for Dr. Carter 47 y/o male patient is POD #1 right foot incision and drainage. Patient was seen ambulating in the hallway, and reports he is feeling much better. Patient also reports physical therapy evaluated him today. Patient denies any complaints of fever, nausea, vomiting or shortness of breath. Objective - Vital Signs/Intake and Output Vital Signs (last 24 hours): Temp Pulse Resp BP Pulse Ox 98.3 F 62 20 138/87 97 08/20/18 16:00 08/20/18 16:00 08/20/18 16:00 08/20/18 16:00 08/20/18 16:00 Intake and Output: 08/20/18 08/20/18 06:59 18:59 Intake Total 340 830 Output Total 1000 Balance -660 830 - Medications Medications: Current Medications Acetaminophen (Tylenol 325mg Tab) 650 mg PO Q6 PRN PRN Reason: Pain, Mild (1-3) Albuterol/Ipratropium (Duoneb 3 Mg/0.5 Mg (3 Ml) Ud) 3 ml INH RQ4 PRN PRN Reason: Shortness of Breath Enoxaparin Sodium (Lovenox) 40 mg SC DAILY [facility] Last Admin: 08/20/18 10:40 Dose: 40 mg Piperacillin Sod/Tazobactam (Sod 3.375 gm/ Sodium Chloride) 100 mls @ 200 mls/hr IVPB Q6H [facility]; Protocol Last Admin: 08/20/18 16:32 Dose: 200 mls/hr Vancomycin HCl 1 gm/ Sodium (Chloride) 250 mls @ 166.7 mls/hr IVPB DAILY [facility]; Protocol Last Admin: 08/20/18 10:46 Dose: 166.7 mls/hr Insulin Aspart (Novolog) 0 unit SC ACHS [facility]; Protocol Last Admin: 08/20/18 16:42 Dose: Not Given Methadone HCl (Methadone) 110 mg PO DAILY [facility] Last Admin: 08/20/18 10:38 Dose: 110 mg Naproxen (Anaprox Ds) 550 mg PO BID [facility] Last Admin: 08/20/18 17:47 Dose: 550 mg Nicotine (Nicoderm Cq) 1 patch TD DAILY [facility] Last Admin: 08/20/18 10:54 Dose: 1 patch Oxycodone/Acetaminophen (Percocet 5/325 Mg Tab) 1 tab PO Q4H PRN PRN Reason: Pain, moderate (4-7) Stop: 08/22/18 13:32 Oxycodone/Acetaminophen (Percocet 5/325 Mg Tab) 2 tab PO Q4H PRN PRN Reason: Pain, severe (8-10) Stop: 08/22/18 13:32 Last Admin: 08/20/18 16:52 Dose: 2 tab Pantoprazole Sodium (Protonix Ec Tab) 40 mg PO DAILY [facility] Last Admin: 08/20/18 10:40 Dose: 40 mg - Labs Labs: 08/20/18 07:03 08/20/18 07:03 PT 12.4 SECONDS (9.7-12.2) H 08/18/18 11:00 INR 1.1 08/18/18 11:00 APTT 25 SECONDS (21-34) 08/18/18 11:00 - Constitutional Appears: Well, Non-toxic, No Acute Distress - Head Exam Head Exam: ATRAUMATIC, NORMOCEPHALIC - Extremities Exam Additional comments: Lower extremity focused exam: Dressing: sanguinous strike-through noted to the dressing Vasc: DP pulse 1/4 on R, PT lightly palpable. DP/PT pulses 2/4 on L. Non-pitting pedal edema extending from ankle distally to digits on R; no pedal edema on LLE. CFT < 3 sec to all digits x10. Temperature gradient warm to warm on RLE; warm to cool on LLE Derm: Incision measuring approximately 10 cm noted to the dorsum of the right foot, with central opening, packing noted in place. improving Olga-wound erythema and edema noted, no malodor, no active drainage Neuro: protective sensation is grossly intact Ortho: moderate pain noted to palpation of right dorsal foot at site of wound, MM is 5/5 in all four compartments: dorsiflexion, plantarflexion, inversion and eversion - Neurological Exam Neurological Exam: Alert, Awake, Oriented x3 - Psychiatric Exam Psychiatric exam: Normal Affect, Normal Mood Assessment and Plan - Assessment and Plan (Free Text) Assessment: 47 y/o male POD # 1 right foot incision and drainage of abscess Plan: Patient seen and evaluated for attending Dr. Carter Plan discussed with attending Chart, labs and vitals reviewed- afebrile, absent leukocytosis S/P Right foot abscess I&D on 08/19/18 in the OR Continue Abx as per ID recommendations of Dr. Echols Foot X-ray (Admission): No acute fracture dislocation. Severe hallux valgus deformity. Forefoot midfoot dorsal soft tissue edema. Lower Ext MRI (08/17/18): Subcutaneous fluid collection in the mid to distal right foot superficial to the distal extensor tendons measures 2.9 x 2.5 x 2.2 centimeter may represent subcutaneous abscess. No evidence of osteomyelitis Wound Culture: (08/17/18): POSITIVE for Staph Aureus OR Wound Cultures Pending Physical Therapy Eval/Tx: No Weight Bearing to Right Lower Ext Patient likely to be going to [facility] for IV Abx Wound: Packing advanced, cleansed with saline and dressed with xeroform, gauze and kerlix Podiatry will continue to follow patient while in house
[2018-08-21] MEDS: Piperacillin/Tazobact 3.375 GM in Sodium Chloride 100 ML IVPB SCH ×4 (04:20→21:42)
[2018-08-21] MEDS: Oxycodone/Acetaminophen 5/325 mg Tab PO PRN ×4 (04:35→22:29)
[2018-08-21 08:15] LABS: BASO % 0.5 % (0.0-2.0); EOS # 0.4 K/uL (0.0-0.7); EOS % 4.6 % (0.0-4.0); HEMOGLOBIN 12.7 g/dL (12.0-18.0); LYMPH # 2.3 K/uL (1.0-4.3); LYMPH % 24.7 % (20.0-40.0); MEAN CELL VOLUME 85.8 fL (80.0-94.0); MEAN CORPUSCULAR HEMOGLOBIN 29.4 pg (27.0-31.0); MEAN CORPUSCULAR HGB CONC 34.3 g/dL (33.0-37.0); MEAN PLATELET VOLUME 8.1 fL (7.2-11.7); MONO # 0.6 K/uL (0.0-0.8); MONO % 5.9 % (0.0-10.0); NEUT % 64.3 % (50.0-75.0); NRBC % 0.1 % (0.0-2.0); RBC 4.31 Mil/uL (4.40-5.90); RED CELL DISTRIBUTION WIDTH 13.4 % (11.5-14.5); WHITE BLOOD COUNT 9.3 K/uL (4.8-10.8)
[2018-08-21] MEDS: (Novolog) Insulin Aspart, Recombinant 100 u/ml 10 ml vial SC SCH ×4 (08:16→21:43)
--- NOTE | 2018-08-21 08:22 | CP.PCM.PN ---
Subjective - Date & Time of Evaluation Date of Evaluation: 08/21/18 Time of Evaluation: 08:20 - Subjective Subjective: Podiatry progress note for Dr. Carter 47 y/o male patient is POD #2 right foot incision and drainage. Patient was seen ambulating in the hallway, and reports he is feeling much better. Patient also reports physical therapy evaluated him today. Patient denies any complaints of fever, nausea, vomiting or shortness of breath. Objective - Vital Signs/Intake and Output Vital Signs (last 24 hours): Temp Pulse Resp BP Pulse Ox 97.8 F 62 20 166/86 H 97 08/21/18 08:09 08/21/18 08:09 08/21/18 08:09 08/21/18 08:09 08/21/18 08:09 Intake and Output: 08/21/18 08/21/18 06:59 18:59 Intake Total 1200 Balance 1200 - Medications Medications: Current Medications Acetaminophen (Tylenol 325mg Tab) 650 mg PO Q6 PRN PRN Reason: Pain, Mild (1-3) Albuterol/Ipratropium (Duoneb 3 Mg/0.5 Mg (3 Ml) Ud) 3 ml INH RQ4 PRN PRN Reason: Shortness of Breath Enoxaparin Sodium (Lovenox) 40 mg SC DAILY [facility] Last Admin: 08/20/18 10:40 Dose: 40 mg Piperacillin Sod/Tazobactam (Sod 3.375 gm/ Sodium Chloride) 100 mls @ 200 mls/hr IVPB Q6H [facility]; Protocol Last Admin: 08/21/18 04:20 Dose: 200 mls/hr Vancomycin HCl 1 gm/ Sodium (Chloride) 250 mls @ 166.7 mls/hr IVPB DAILY [facility]; P rotocol Last Admin: 08/20/18 10:46 Dose: 166.7 mls/hr Insulin Aspart (Novolog) 0 unit SC ACHS [facility]; Protocol Last Admin: 08/21/18 08:16 Dose: 1 units Methadone HCl (Methadone) 110 mg PO DAILY [facility] Last Admin: 08/20/18 10:38 Dose: 110 mg Naproxen (Anaprox Ds) 550 mg PO BID [facility] Last Admin: 08/20/18 17:47 Dose: 550 mg Nicotine (Nicoderm Cq) 1 patch TD DAILY [facility] Last Admin: 08/20/18 10:54 Dose: 1 patch Oxycodone/Acetaminophen (Percocet 5/325 Mg Tab) 1 tab PO Q4H PRN PRN Reason: Pain, moderate (4-7) Stop: 08/22/18 13:32 Oxycodone/Acetaminophen (Percocet 5/325 Mg Tab) 2 tab PO Q4H PRN PRN Reason: Pain, severe (8-10) Stop: 08/22/18 13:32 Last Admin: 08/21/18 04:35 Dose: 2 tab Pantoprazole Sodium (Protonix Ec Tab) 40 mg PO DAILY [facility] Last Admin: 08/20/18 10:40 Dose: 40 mg - Labs Labs: 08/21/18 08:04 08/20/18 07:03 PT 12.4 SECONDS (9.7-12.2) H 08/18/18 11:00 INR 1.1 08/18/18 11:00 APTT 25 SECONDS (21-34) 08/18/18 11:00 - Constitutional Appears: Well, Non-toxic, No Acute Distress - Head Exam Head Exam: ATRAUMATIC, NORMOCEPHALIC - Extremities Exam Additional comments: Lower extremity focused exam: Dressing: sanguinous strike-through noted to the dressing Vasc: DP pulse 1/4 on R, PT lightly palpable. DP/PT pulses 2/4 on L. Non-pitting pedal edema extending from ankle distally to digits on R; no pedal edema on LLE. CFT < 3 sec to all digits x10. Temperature gradient warm to warm on RLE; warm to cool on LLE Derm: Incision measuring approximately 10 cm noted to the dorsum of the right foot, with central opening, packing noted in place. improving Olga-wound erythema and edema noted, no malodor, no active drainage Neuro: protective sensation is grossly intact Ortho: moderate pain noted to palpation of right dorsal foot at site of wound, MM is 5/5 in all four compartments: dorsiflexion, plantarflexion, inversion and eversion - Neurological Exam Neurological Exam: Alert, Awake, Oriented x3 - Psychiatric Exam Psychiatric exam: Normal Affect, Normal Mood Assessment and Plan - Assessment and Plan (Free Text) Assessment: 47 y/o male POD #2 right foot incision and drainage of abscess Plan: Patient seen and evaluated for attending Dr. Carter Plan discussed with attending Chart, labs and vitals reviewed- afebrile, absent leukocytosis S/P Right foot abscess I&D on 08/19/18 in the OR Continue Abx as per ID recommendations of Dr. Echols Patient to receive a PICC line prior to discharge Foot X-ray (Admission): No acute fracture dislocation. Severe hallux valgus deformity. Forefoot midfoot dorsal soft tissue edema. Lower Ext MRI (08/17/18): Subcutaneous fluid collection in the mid to distal right foot superficial to the distal extensor tendons measures 2.9 x 2.5 x 2.2 centimeter may represent subcutaneous abscess. No evidence of osteomyelitis Wound Culture: (08/17/18): POSITIVE for Staph Aureus OR Wound Cultures Pending Physical Therapy Eval/Tx: No Weight Bearing to Right Lower Ext Patient likely to be going to [facility] for IV Abx- plan as per primary care team and infectious disease Wound: cleansed with saline and dressed with new packing, xeroform, gauze and kerlix Podiatry will continue to follow patient while in house
[2018-08-21 08:36] LABS: ALB/GLOB RATIO 0.9 (1.0-2.1); ALBUMIN 3.2 g/dL (3.5-5.0); ALT/SGPT 32 U/L (21-72); AST/SGOT 25 U/L (17-59); BLOOD UREA NITROGEN 14 mg/dL (9-20); CALCIUM 8.3 mg/dl (8.6-10.4); GFR NON-AFRICAN AMERICAN > 60
[2018-08-21] MEDS: Enoxaparin 40 mg Syringe SC SCH (09:51)
[2018-08-21] MEDS: Pantoprazole 40 mg EC Tab PO SCH (09:52)
[2018-08-21] MEDS: Naproxen 550 mg Tab PO SCH ×2 (09:52→17:00)
--- NOTE | 2018-08-21 14:06 | CP.PCM.PN ---
Subjective - Date & Time of Evaluation Date of Evaluation: 08/21/18 Time of Evaluation: 14:00 - Subjective Subjective: Progress note. Attending: Dr. Gurvinder Rapp. Pt seen and examined at bedside. No acute distress. No events overnight. Being f ollowed by podiatry. Feeling better. past drug abuser. No fevers, chills, vomiting, diarrhea. Objective - Vital Signs/Intake and Output Vital Signs (last 24 hours): Temp Pulse Resp BP Pulse Ox 97.8 F 62 20 166/86 H 97 08/21/18 08:09 08/21/18 08:09 08/21/18 08:09 08/21/18 08:09 08/21/18 08:09 Intake and Output: 08/21/18 08/21/18 06:59 18:59 Intake Total 1200 Balance 1200 - Medications Medications: Current Medications Acetaminophen (Tylenol 325mg Tab) 650 mg PO Q6 PRN PRN Reason: Pain, Mild (1-3) Albuterol/Ipratropium (Duoneb 3 Mg/0.5 Mg (3 Ml) Ud) 3 ml INH RQ4 PRN PRN Reason: Shortness of Breath Enoxaparin Sodium (Lovenox) 40 mg SC DAILY [facility] Last Admin: 08/21/18 09:51 Dose: 40 mg Piperacillin Sod/Tazobactam (Sod 3.375 gm/ Sodium Chloride) 100 mls @ 200 mls/hr IVPB Q6H [facility]; Protocol Last Admin: 08/21/18 09:53 Dose: 200 mls/hr Vancomycin HCl 1 gm/ Sodium (Chloride) 250 mls @ 166.7 mls/hr IVPB DAILY [facility]; Protocol Last Admin: 08/21/18 09:55 Dose: 166.7 mls/hr Insulin Aspart (Novolog) 0 unit SC ACHS [facility]; Protocol Last Admin: 08/21/18 12:30 Dose: 4 units Methadone HCl (Methadone) 110 mg PO DAILY [facility] Last Admin: 08/21/18 09:52 Dose: 110 mg Naproxen (Anaprox Ds) 550 mg PO BID [facility] Last Admin: 08/21/18 09:52 Dose: 550 mg Nicotine (Nicoderm Cq) 1 patch TD DAILY [facility] Last Admin: 08/21/18 09:51 Dose: 1 patch Oxycodone/Acetaminophen (Percocet 5/325 Mg Tab) 1 tab PO Q4H PRN PRN Reason: Pain, moderate (4-7) Stop: 08/22/18 13:32 Oxycodone/Acetaminophen (Percocet 5/325 Mg Tab) 2 tab PO Q4H PRN PRN Reason: Pain, severe (8-10) Stop: 08/22/18 13:32 Last Admin: 08/21/18 11:34 Dose: 2 tab Pantoprazole Sodium (Protonix Ec Tab) 40 mg PO DAILY [facility] Last Admin: 08/21/18 09:52 Dose: 40 mg - Labs Labs: 08/21/18 08:04 08/21/18 08:04 PT 12.4 SECONDS (9.7-12.2) H 08/18/18 11:00 INR 1.1 08/18/18 11:00 APTT 25 SECONDS (21-34) 08/18/18 11:00 - Constitutional Appears: Non-toxic, No Acute Distress, Unkempt - Head Exam Head Exam: ATRAUMATIC, NORMAL INSPECTION, NORMOCEPHALIC Additional comments: poor dentition - Eye Exam Eye Exam: EOMI - ENT Exam ENT Exam: Mucous Membranes Moist - Neck Exam Neck Exam: Full ROM, Normal Inspection. absent: Lymphadenopathy - Respiratory Exam Respiratory Exam: NORMAL BREATHING PATTERN. absent: Respiratory Distress - Cardiovascular Exam Cardiovascular Exam: +S1, +S2 - GI/Abdominal Exam GI & Abdominal Exam: Soft, Normal Bowel Sounds. absent: Tenderness - Extremities Exam Extremities Exam: absent: Full ROM, Normal Inspection Additional comments: dressing clean dry intact - Back Exam Back Exam: NORMAL INSPECTION - Neurological Exam Neurological Exam: Alert, Awake, Oriented x3 - Psychiatric Exam Psychiatric exam: Normal Affect, Normal Mood - Skin Skin Exam: Dry, Intact, Normal Color, Warm Assessment and Plan - Assessment and Plan (Free Text) Assessment: This is a 47 yo male with Right Foot cellulitis w/ Abscess. * S/P Right foot abscess I&D on 08/17/18 & 08/19/18 - Podiatry Consulted (Dr. Carter), help appreciated - ID Consulted (Dr. Echols), help appreciated. - Foot X-ray (Admission): No acute fracture dislocation. Severe hallux valgus deformity. Forefoot midfoot dorsal soft tissue edema. - Lower Ext MRI (08/17/18): Subcutaneous fluid collection in the mid to distal right foot superficial to the distal extensor tendons measures 2.9 x 2.5 x 2.2 centimeter may represent subcutaneous abscess. No evidence of osteomyelitis. - Blood Culture (08/15/18): NEGATIVE - Wound Culture: (08/17/18): POSITIVE for Staph Aureus. - Physical Therapy Eval/Tx: No Weight Bearing to Right Lower Ext. Medication: * Tylenol PRN * Morphine 4mg IVP PRN (Discontinued) * Naproxen 550mg PO BID [facility] * Percocet 1 tab & 2 tabs Q4H PRN * Zosyn 3.375 Q6H [facility] * Vancomycin 1gram IV Daily DM II -uncontrolled - Insulin Sliding Scale ACHS - Accuchecks - Hypoglycemia protocol -will check a1C>>> 12.3 Asthma - DuoNebs Q4 PRN - O2 via NC prn Proph - DVT: Lovenox 40mg SC daily; SCD Contraindicated - Protonix 40mg PO Daily - Heart Healthy Diet - Case management referral for discharge planning All management/orders per Dr. Kaylyn Rapp.
--- NOTE | 2018-08-21 15:33 | RAD ---
Date of service: 08/21/2018 HISTORY: verify right PICC COMPARISON: No prior. FINDINGS: In situ right-sided PICC line with tip in the SVC. LUNGS: No active pulmonary disease. PLEURA: No significant pleural effusion identified, no pneumothorax apparent. CARDIOVASCULAR: No aortic atherosclerotic calcification present. Normal cardiac size. No pulmonary vascular congestion. OSSEOUS STRUCTURES: No significant abnormalities. VISUALIZED UPPER ABDOMEN: Normal. OTHER FINDINGS: None. IMPRESSION: No active disease.. In situ PICC line as above
--- NOTE | 2018-08-21 16:59 | CP.PCM.PN ---
Subjective - Date & Time of Evaluation Date of Evaluation: 08/21/18 Time of Evaluation: 07:15 - Subjective Subjective: clinically same Objective - Vital Signs/Intake and Output Vital Signs (last 24 hours): Temp Pulse Resp BP Pulse Ox 98.6 F 56 L 20 163/87 H 95 08/21/18 16:00 08/21/18 16:00 08/21/18 16:00 08/21/18 16:00 08/21/18 16:00 Intake and Output: 08/21/18 08/21/18 06:59 18:59 Intake Total 1200 850 Balance 1200 850 - Medications Medications: Current Medications Acetaminophen (Tylenol 325mg Tab) 650 mg PO Q6 PRN PRN Reason: Pain, Mild (1-3) Albuterol/Ipratropium (Duoneb 3 Mg/0.5 Mg (3 Ml) Ud) 3 ml INH RQ4 PRN PRN Reason: Shortness of Breath Enoxaparin Sodium (Lovenox) 40 mg SC DAILY [facility] Last Admin: 08/21/18 09:51 Dose: 40 mg Piperacillin Sod/Tazobactam (Sod 3.375 gm/ Sodium Chloride) 100 mls @ 200 mls/hr IVPB Q6H [facility]; Protocol Last Admin: 08/21/18 09:53 Dose: 200 mls/hr Vancomycin HCl 1 gm/ Sodium (Chloride) 250 mls @ 166.7 mls/hr IVPB DAILY [facility]; Protocol Last Admin: 08/21/18 09:55 Dose: 166.7 mls/hr Insulin Aspart (Novolog) 0 unit SC ACHS [facility]; Protocol Last Admin: 08/21/18 12:30 Dose: 4 units Methadone HCl (Methadone) 110 mg PO DAILY [facility] Last Admin: 08/21/18 09:52 Dose: 110 mg Naproxen (Anaprox Ds) 550 mg PO BID [facility] Last Admin: 08/21/18 09:52 Dose: 550 mg Nicotine (Nicoderm Cq) 1 patch TD DAILY [facility] Last Admin: 08/21/18 09:51 Dose: 1 patch Oxycodone/Acetaminophen (Percocet 5/325 Mg Tab) 1 tab PO Q4H PRN PRN Reason: Pain, moderate (4-7) Stop: 08/22/18 13:32 Oxycodone/Acetaminophen (Percocet 5/325 Mg Tab) 2 tab PO Q4H PRN PRN Reason: Pain, severe (8-10) Stop: 08/22/18 13:32 Last Admin: 08/21/18 11:34 Dose: 2 tab Pantoprazole Sodium (Protonix Ec Tab) 40 mg PO DAILY [facility] Last Admin: 08/21/18 09:52 Dose: 40 mg - Labs Labs: 08/21/18 08:04 08/21/18 08:04 PT 12.4 SECONDS (9.7-12.2) H 08/18/18 11:00 INR 1.1 08/18/18 11:00 APTT 25 SECONDS (21-34) 08/18/18 11:00 - Constitutional Appears: Well - Head Exam Head Exam: ATRAUMATIC, NORMAL INSPECTION, NORMOCEPHALIC - Eye Exam Eye Exam: EOMI, Normal appearance, PERRL Pupil Exam: NORMAL ACCOMODATION, PERRL - ENT Exam ENT Exam: Mucous Membranes Moist, Normal Exam - Neck Exam Neck Exam: Full ROM, Normal Inspection. absent: Lymphadenopathy - Respiratory Exam Respiratory Exam: Decreased Breath Sounds - Cardiovascular Exam Cardiovascular Exam: REGULAR RHYTHM, +S1, +S2 - GI/Abdominal Exam GI & Abdominal Exam: Soft, Diminished Bowel Sounds - Rectal Exam Rectal Exam: Deferred
[2018-08-22] MEDS: Piperacillin/Tazobact 3.375 GM in Sodium Chloride 100 ML IVPB SCH ×4 (04:42→21:32)
[2018-08-22 07:22] LABS: BASO % 0.4 % (0.0-2.0); EOS # 0.4 K/uL (0.0-0.7); EOS % 4.8 % (0.0-4.0); HEMOGLOBIN 12.2 g/dL (12.0-18.0); LYMPH # 2.9 K/uL (1.0-4.3); LYMPH % 32.3 % (20.0-40.0); MEAN CELL VOLUME 85.8 fL (80.0-94.0); MEAN CORPUSCULAR HGB CONC 33.8 g/dL (33.0-37.0); MEAN PLATELET VOLUME 8.3 fL (7.2-11.7); MONO # 0.6 K/uL (0.0-0.8); MONO % 6.9 % (0.0-10.0); NEUT % 55.6 % (50.0-75.0); RBC 4.21 Mil/uL (4.40-5.90); RED CELL DISTRIBUTION WIDTH 13.3 % (11.5-14.5); WHITE BLOOD COUNT 9.1 K/uL (4.8-10.8)
[2018-08-22] MEDS: (Novolog) Insulin Aspart, Recombinant 100 u/ml 10 ml vial SC SCH ×4 (07:41→21:32)
[2018-08-22 08:06] LABS: ALBUMIN 3.2 g/dL (3.5-5.0); ALT/SGPT 31 U/L (21-72); AST/SGOT 29 U/L (17-59); BLOOD UREA NITROGEN 13 mg/dL (9-20); CALCIUM 8.5 mg/dl (8.6-10.4); GFR NON-AFRICAN AMERICAN > 60
[2018-08-22] MEDS: Naproxen 550 mg Tab PO SCH ×2 (09:00→17:28)
[2018-08-22] MEDS: Enoxaparin 40 mg Syringe SC SCH (09:02)
[2018-08-22] MEDS: Pantoprazole 40 mg EC Tab PO SCH (09:02)
[2018-08-22] MEDS: Oxycodone/Acetaminophen 5/325 mg Tab PO PRN ×2 (09:09→18:02)
--- NOTE | 2018-08-22 12:32 | CP.PCM.PN ---
Subjective - Date & Time of Evaluation Date of Evaluation: 08/22/18 Time of Evaluation: 12:30 - Subjective Subjective: Podiatry progress note for Dr. Carter: 47 yo male patient seen and evaluated POD #3 R foot incision and drainage. Patient is resting comfortably in bed and in NAD. He reports mild pain to the surgical site, however states that it is well controlled with his pain medication. He denies N/V/F/SOB/CP/chills. Objective - Vital Signs/Intake and Output Vital Signs (last 24 hours): Temp Pulse Resp BP Pulse Ox 98.5 F 48 L 20 181/93 H 97 08/22/18 08:05 08/22/18 08:05 08/22/18 08:05 08/22/18 08:05 08/22/18 08:05 - Medications Medications: Current Medications Acetaminophen (Tylenol 325mg Tab) 650 mg PO Q6 PRN PRN Reason: Pain, Mild (1-3) Albuterol/Ipratropium (Duoneb 3 Mg/0.5 Mg (3 Ml) Ud) 3 ml INH RQ4 PRN PRN Reason: Shortness of Breath Enoxaparin Sodium (Lovenox) 40 mg SC DAILY [facility] Last Admin: 08/22/18 09:02 Dose: 40 mg Piperacillin Sod/Tazobactam (Sod 3.375 gm/ Sodium Chloride) 100 mls @ 200 mls/hr IVPB Q6H [facility]; Protocol Last Admin: 08/22/18 10:34 Dose: 200 mls/hr Vancomycin HCl 1 gm/ Sodium (Chloride) 250 mls @ 166.7 mls/hr IVPB DAILY [facility]; Protocol Last Admin: 08/22/18 10:34 Dose: 166.7 mls/hr Insulin Aspart (Novolog) 0 unit SC ACHS [facility]; Protocol Last Admin: 08/22/18 11:43 Dose: 2 units Methadone HCl (Methadone) 110 mg PO DAILY [facility] Last Admin: 08/22/18 09:04 Dose: 110 mg Naproxen (Anaprox Ds) 550 mg PO BID [facility] Last Admin: 08/22/18 09:00 Dose: 550 mg Nicotine (Nicoderm Cq) 1 patch TD DAILY [facility] Last Admin: 08/22/18 09:02 Dose: 1 patch Oxycodone/Acetaminophen (Percocet 5/325 Mg Tab) 1 tab PO Q4H PRN PRN Reason: Pain, moderate (4-7) Stop: 08/22/18 13:32 Oxycodone/Acetaminophen (Percocet 5/325 Mg Tab) 2 tab PO Q4H PRN PRN Reason: Pain, severe (8-10) Stop: 08/22/18 13:32 Last Admin: 08/22/18 09:09 Dose: 2 tab Pantoprazole Sodium (Protonix Ec Tab) 40 mg PO DAILY [facility] Last Admin: 08/22/18 09:02 Dose: 40 mg - Labs Labs: 08/22/18 07:07 08/22/18 07:07 PT 12.4 SECONDS (9.7-12.2) H 08/18/18 11:00 INR 1.1 08/18/18 11:00 APTT 25 SECONDS (21-34) 08/18/18 11:00 - Constitutional Appears: Well, Non-toxic, No Acute Distress - Head Exam Head Exam: ATRAUMATIC, NORMOCEPHALIC - Extremities Exam Additional comments: B/L Lower extremity focused exam: Dressing: C/D/I Vasc: DP pulse 1/4 on R, PT lightly palpable. DP/PT pulses 2/4 on L. Non-pitting pedal edema extending from ankle distally to digits on R; no pedal edema on LLE. CFT < 3 sec to all digits x10. Temperature gradient warm to warm on RLE; warm to cool on LLE Derm: Incision measuring approximately 10 cm noted to the dorsum of the right foot, with central opening, Olga-wound erythema and edema noted, resolving. No malodor, no active drainage, no purulence Neuro: protective sensation is grossly intact Ortho: moderate pain noted to palpation of right dorsal foot at site of wound, MM is 5/5 in all four compartments: dorsiflexion, plantarflexion, inversion and eversion - Neurological Exam Neurological Exam: Alert, Awake, Oriented x3 - Psychiatric Exam Psychiatric exam: Normal Affect, Normal Mood Assessment and Plan - Assessment and Plan (Free Text) Assessment: 47 y/o male POD #3 right foot incision and drainage of abscess Plan: Patient seen and evaluated at bedside, Discussed with Dr. Carter Afebrile, absent leukocytosis S/P Right foot abscess I&D on 08/19/18 in the OR Continue Abx as per ID recommendations of Dr. Echols Patient to receive a PICC line prior to discharge Foot X-ray (Admission): No acute fracture dislocation. Severe hallux valgus deformity. Forefoot midfoot dorsal soft tissue edema. Lower Ext MRI (08/17/18): Subcutaneous fluid collection in the mid to distal right foot superficial to the distal extensor tendons measures 2.9 x 2.5 x 2.2 centimeter may represent subcutaneous abscess. No evidence of osteomyelitis Wound Culture: (08/17/18): POSITIVE for Staph Aureus OR Wound Cultures Pending Physical Therapy Eval/Tx: No Weight Bearing to Right Lower Ext Patient likely to be going to [facility] for IV Abx- plan as per primary care team and infectious disease Wound: cleansed with saline and dressed with betadine gauze packing, xeroform, DSD, light REMIGIO Podiatry will continue to follow patient while in house
--- NOTE | 2018-08-22 19:34 | CP.PCM.PN ---
Subjective - Date & Time of Evaluation Date of Evaluation: 08/22/18 Time of Evaluation: 07:15 - Subjective Subjective: clinically same Objective - Vital Signs/Intake and Output Vital Signs (last 24 hours): Temp Pulse Resp BP Pulse Ox 98.3 F 54 L 20 169/84 H 97 08/22/18 16:00 08/22/18 16:00 08/22/18 16:00 08/22/18 16:00 08/22/18 16:00 - Medications Medications: Current Medications Acetaminophen (Tylenol 325mg Tab) 650 mg PO Q6 PRN PRN Reason: Pain, Mild (1-3) Albuterol/Ipratropium (Duoneb 3 Mg/0.5 Mg (3 Ml) Ud) 3 ml INH RQ4 PRN PRN Reason: Shortness of Breath Enoxaparin Sodium (Lovenox) 40 mg SC DAILY [facility] Last Admin: 08/22/18 09:02 Dose: 40 mg Piperacillin Sod/Tazobactam (Sod 3.375 gm/ Sodium Chloride) 100 mls @ 200 mls/hr IVPB Q6H [facility]; Protocol Last Admin: 08/22/18 17:29 Dose: 200 mls/hr Vancomycin HCl 1 gm/ Sodium (Chloride) 250 mls @ 166.7 mls/hr IVPB DAILY [facility]; Protocol Last Admin: 08/22/18 10:34 Dose: 166.7 mls/hr Insulin Aspart (Novolog) 0 unit SC ACHS [facility]; Protocol Last Admin: 08/22/18 17:28 Dose: 1 units Methadone HCl (Methadone) 110 mg PO DAILY [facility] Last Admin: 08/22/18 09:04 Dose: 110 mg Naproxen (Anaprox Ds) 550 mg PO BID [facility] Last Admin: 08/22/18 17:28 Dose: 550 mg Nicotine (Nicoderm Cq) 1 patch TD DAILY [facility] Last Admin: 08/22/18 09:02 Dose: 1 patch Oxycodone/Acetaminophen (Percocet 5/325 Mg Tab) 2 tab PO Q4H PRN PRN Reason: Pain, severe (8-10) Stop: 08/25/18 17:45 Last Admin: 08/22/18 18:02 Dose: 2 tab Pantoprazole Sodium (Protonix Ec Tab) 40 mg PO DAILY [facility] Last Admin: 08/22/18 09:02 Dose: 40 mg - Labs Labs: 08/22/18 07:07 08/22/18 07:07 PT 12.4 SECONDS (9.7-12.2) H 08/18/18 11:00 INR 1.1 08/18/18 11:00 APTT 25 SECONDS (21-34) 08/18/18 11:00 - Constitutional Appears: Well - Head Exam Head Exam: ATRAUMATIC, NORMAL INSPECTION, NORMOCEPHALIC - Eye Exam Eye Exam: EOMI, Normal appearance, PERRL Pupil Exam: NORMAL ACCOMODATION, PERRL - ENT Exam ENT Exam: Mucous Membranes Moist, Normal Exam - Neck Exam Neck Exam: Full ROM, Normal Inspection. absent: Lymphadenopathy - Respiratory Exam Respiratory Exam: Decreased Breath Sounds - Cardiovascular Exam Cardiovascular Exam: REGULAR RHYTHM, +S1, +S2 - GI/Abdominal Exam GI & Abdominal Exam: Soft, Diminished Bowel Sounds - Rectal Exam Rectal Exam: Deferred
[2018-08-23] MEDS: Piperacillin/Tazobact 3.375 GM in Sodium Chloride 100 ML IVPB SCH ×5 (04:15→21:41)
[2018-08-23 07:05] LABS: BASO # 0.1 K/uL (0.0-0.2); BASO % 0.6 % (0.0-2.0); EOS # 0.4 K/uL (0.0-0.7); EOS % 4.7 % (0.0-4.0); HEMOGLOBIN 12.6 g/dL (12.0-18.0); LYMPH # 2.7 K/uL (1.0-4.3); LYMPH % 31.4 % (20.0-40.0); MEAN CELL VOLUME 85.5 fL (80.0-94.0); MEAN CORPUSCULAR HEMOGLOBIN 28.9 pg (27.0-31.0); MEAN CORPUSCULAR HGB CONC 33.8 g/dL (33.0-37.0); MEAN PLATELET VOLUME 8.4 fL (7.2-11.7); MONO # 0.6 K/uL (0.0-0.8); MONO % 6.5 % (0.0-10.0); NEUT # 4.9 K/uL (1.8-7.0); NEUT % 56.8 % (50.0-75.0); RBC 4.35 Mil/uL (4.40-5.90); RED CELL DISTRIBUTION WIDTH 13.2 % (11.5-14.5); WHITE BLOOD COUNT 8.6 K/uL (4.8-10.8)
[2018-08-23 07:15] LABS: ALBUMIN 3.4 g/dL (3.5-5.0); ALT/SGPT 33 U/L (21-72); AST/SGOT 27 U/L (17-59); BLOOD UREA NITROGEN 12 mg/dL (9-20); CALCIUM 8.6 mg/dl (8.6-10.4); GFR NON-AFRICAN AMERICAN > 60
[2018-08-23] MEDS: (Novolog) Insulin Aspart, Recombinant 100 u/ml 10 ml vial SC SCH ×4 (07:42→22:00)
[2018-08-23] MEDS: Pantoprazole 40 mg EC Tab PO SCH (09:35)
[2018-08-23] MEDS: Naproxen 550 mg Tab PO SCH ×2 (09:35→17:20)
[2018-08-23] MEDS: Enoxaparin 40 mg Syringe SC SCH (09:42)
--- NOTE | 2018-08-23 09:54 | CP.PCM.PN ---
Subjective - Date & Time of Evaluation Date of Evaluation: 08/23/18 Time of Evaluation: 09:51 - Subjective Subjective: Podiatry progress Note: Dr. Carter 47M patient, seen and evaluated, POD #4 R foot I&D. Patient is resting comfortably and in NAD. He denies any new pedal complaints at this time. Denies N/V/F/SOB/CP. Objective - Vital Signs/Intake and Output Vital Signs (last 24 hours): Temp Pulse Resp BP Pulse Ox 97.9 F 58 L 20 178/94 H 97 08/23/18 09:39 08/23/18 09:39 08/23/18 09:39 08/23/18 09:39 08/23/18 09:39 - Medications Medications: Current Medications Acetaminophen (Tylenol 325mg Tab) 650 mg PO Q6 PRN PRN Reason: Pain, Mild (1-3) Albuterol/Ipratropium (Duoneb 3 Mg/0.5 Mg (3 Ml) Ud) 3 ml INH RQ4 PRN PRN Reason: Shortness of Breath Enoxaparin Sodium (Lovenox) 40 mg SC DAILY [facility] Last Admin: 08/22/18 09:02 Dose: 40 mg Piperacillin Sod/Tazobactam (Sod 3.375 gm/ Sodium Chloride) 100 mls @ 200 mls/hr IVPB Q6H [facility]; Protocol Last Admin: 08/23/18 09:38 Dose: 200 mls/hr Vancomycin HCl 1 gm/ Sodium (Chloride) 250 mls @ 166.7 mls/hr IVPB DAILY [facility]; Protocol Last Admin: 08/23/18 09:38 Dose: 166.7 mls/hr Insulin Aspart (Novolog) 0 unit SC ACHS [facility]; Protocol Last Admin: 08/23/18 07:42 Dose: Not Given Methadone HCl (Methadone) 110 mg PO DAILY [facility] Last Admin: 08/23/18 09:35 Dose: 110 mg Naproxen (Anaprox Ds) 550 mg PO BID [facility] Last Admin: 08/23/18 09:35 Dose: 550 mg Nicotine (Nicoderm Cq) 1 patch TD DAILY [facility] Last Admin: 08/23/18 09:35 Dose: 1 patch Oxycodone/Acetaminophen (Percocet 5/325 Mg Tab) 2 tab PO Q4H PRN PRN Reason: Pain, severe (8-10) Stop: 08/25/18 17:45 Last Admin: 08/22/18 18:02 Dose: 2 tab Pantoprazole Sodium (Protonix Ec Tab) 40 mg PO DAILY [facility] Last Admin: 08/23/18 09:35 Dose: 40 mg - Labs Labs: 08/23/18 07:00 08/23/18 07:00 PT 12.4 SECONDS (9.7-12.2) H 08/18/18 11:00 INR 1.1 08/18/18 11:00 APTT 25 SECONDS (21-34) 08/18/18 11:00 - Constitutional Appears: Non-toxic, No Acute Distress - Head Exam Head Exam: ATRAUMATIC, NORMOCEPHALIC - Extremities Exam Additional comments: B/L Lower extremity focused exam: Dressing: C/D/I Vasc: DP pulse 1/4 on R, PT lightly palpable. DP/PT pulses 2/4 on L. Non-pitting pedal edema extending from ankle distally to digits on R; no pedal edema on LLE. CFT < 3 sec to all digits x10. Temperature gradient warm to warm on RLE; warm to cool on LLE Derm: Incision measuring approximately 10 cm noted to the dorsum of the right foot, with central opening, Olga-wound erythema and edema noted, resolving. No malodor, no active drainage, no purulence Neuro: protective sensation is grossly intact Ortho: moderate pain noted to palpation of right dorsal foot at site of wound, MM is 5/5 in all four compartments: dorsiflexion, plantarflexion, inversion and eversion - Neurological Exam Neurological Exam: Alert, Awake, Oriented x3 - Psychiatric Exam Psychiatric exam: Normal Affect, Normal Mood Assessment and Plan - Assessment and Plan (Free Text) Assessment: 47 y/o male POD #4 right foot I&D Plan: Patient seen and evaluated at bedside, Discussed with Dr. Carter WBC 8.6 S/P Right foot abscess I&D (DOS: 08/19/18) Continue Abx as per ID recommendations of Dr. Echols Patient to receive a PICC line prior to discharge Foot X-ray (Admission): No acute fracture dislocation. Severe hallux valgus deformity. Forefoot midfoot dorsal soft tissue edema. Lower Ext MRI (08/17/18): Subcutaneous fluid collection in the mid to distal r ight foot superficial to the distal extensor tendons measures 2.9 x 2.5 x 2.2 centimeter may represent subcutaneous abscess. No evidence of OM OR Wound Cultures, pending Physical Therapy Eval/Tx: Non-weight Bearing Patient likely to be going to [facility] for IV Abx- plan as per primary care team and infectious disease Wound: cleansed with saline and dressed with betadine gauze packing, xeroform, DSD, light REMIGIO Podiatry will continue to follow patient while in house
[2018-08-23] MEDS: Oxycodone/Acetaminophen 5/325 mg Tab PO PRN ×2 (11:23→17:51)
--- NOTE | 2018-08-23 13:37 | CP.PCM.PN ---
Subjective - Date & Time of Evaluation Date of Evaluation: 08/23/18 Time of Evaluation: 07:15 - Subjective Subjective: clinically same Objective - Vital Signs/Intake and Output Vital Signs (last 24 hours): Temp Pulse Resp BP Pulse Ox 97.9 F 58 L 20 178/94 H 97 08/23/18 09:39 08/23/18 09:39 08/23/18 09:39 08/23/18 09:39 08/23/18 09:39 - Medications Medications: Current Medications Acetaminophen (Tylenol 325mg Tab) 650 mg PO Q6 PRN PRN Reason: Pain, Mild (1-3) Albuterol/Ipratropium (Duoneb 3 Mg/0.5 Mg (3 Ml) Ud) 3 ml INH RQ4 PRN PRN Reason: Shortness of Breath Enoxaparin Sodium (Lovenox) 40 mg SC DAILY [facility] Last Admin: 08/23/18 09:42 Dose: 40 mg Piperacillin Sod/Tazobactam (Sod 3.375 gm/ Sodium Chloride) 100 mls @ 200 mls/hr IVPB Q6H [facility]; Protocol Last Admin: 08/23/18 09:38 Dose: 200 mls/hr Vancomycin HCl 1 gm/ Sodium (Chloride) 250 mls @ 166.7 mls/hr IVPB DAILY [facility]; Protocol Last Admin: 08/23/18 09:38 Dose: 166.7 mls/hr Insulin Aspart (Novolog) 0 unit SC ACHS [facility]; Protocol Last Admin: 08/23/18 11:49 Dose: 2 units Methadone HCl (Methadone) 110 mg PO DAILY [facility] Last Admin: 08/23/18 09:35 Dose: 110 mg Naproxen (Anaprox Ds) 550 mg PO BID [facility] Last Admin: 08/23/18 09:35 Dose: 550 mg Nicotine (Nicoderm Cq) 1 patch TD DAILY [facility] Last Admin: 08/23/18 09:35 Dose: 1 patch Oxycodone/Acetaminophen (Percocet 5/325 Mg Tab) 2 tab PO Q4H PRN PRN Reason: Pain, severe (8-10) Stop: 08/25/18 17:45 Last Admin: 08/23/18 11:23 Dose: 2 tab Pantoprazole Sodium (Protonix Ec Tab) 40 mg PO DAILY [facility] Last Admin: 08/23/18 09:35 Dose: 40 mg - Labs Labs: 08/23/18 07:00 08/23/18 07:00 PT 12.4 SECONDS (9.7-12.2) H 08/18/18 11:00 INR 1.1 08/18/18 11:00 APTT 25 SECONDS (21-34) 08/18/18 11:00 - Constitutional Appears: Well - Head Exam Head Exam: ATRAUMATIC, NORMAL INSPECTION, NORMOCEPHALIC - Eye Exam Eye Exam: EOMI, Normal appearance, PERRL Pupil Exam: NORMAL ACCOMODATION, PERRL - ENT Exam ENT Exam: Mucous Membranes Moist, Normal Exam - Neck Exam Neck Exam: Full ROM, Normal Inspection. absent: Lymphadenopathy - Respiratory Exam Respiratory Exam: Decreased Breath Sounds - Cardiovascular Exam Cardiovascular Exam: REGULAR RHYTHM, +S1, +S2 - GI/Abdominal Exam GI & Abdominal Exam: Soft, Diminished Bowel Sounds - Rectal Exam Rectal Exam: Deferred
--- NOTE | 2018-08-23 21:21 | PCM.OP ---
Operative Report - Operative Report Date of Surgery/Procedure: 08/19/18 Time of Surgery/Procedure: 12:00 Surgeon: Dr. Carter Case Work Aide: Dr. Aleah Norwood Anesthesia/Sedation: IV sedation and local Pre-Operative Diagnosis: Pre-Operative Diagnoses: Right foot infection with abscess Post-Operative Diagnosis: same Indication for Surgery: Indications: The patient is a 48 years old Male with the above diagnoses. The patient is an inpatient with clinical and MRI indication for right foot abscess. The patient has exhausted conservative treatment at this time and now requests surgical intervention. The patient signed the consent after careful explanation of risks, benefits, complication and alternatives for surgical procedure. No guarantees were given nor implied. Patient has been receiving IV antibiotics on floor. NPO status was confirmed prior to taking patient to the OR. Operative Findings: Preparation: The patient was brought to the operating room and placed on the operating room table in supine position. After induction of IV sedation, the patient received a total of 20 mL of 1:1 mixture of 0.5% Marcaine and 1% lidocaine plain in local block fashion to the right foot. Once local anesthesia was achieved, the right foot was then prepped and draped in usual sterile manner. and procedure began. Procedure/Operation Description: PROCEDURE: RIGHT FOOT INCISION AND DRAINAGE. Attention was then directed to the dorsal aspect of right foot where the abscess noted with purulent discharge. An approximately 5 cm linear longitudinal incision was made with #15 blade at the dorsal aspect of right foot. A deep penetrating, proximally tracking abscess was noted. Upon pressure on the foot, approximately 20 mL of purulence drainage was noted from the dorsal wound of right foot. With application of pressure by hand, the Right foot was compressed from all the directions in order to drain out all pus. At this time, a deep wound culture was taken. Next, utilizing Pulse lavage, the dorsal wound site was irrigated with 3 L of normal sterile saline. Utilizing #15 blade and forceps, all non-viable tissue were debrided. Next, the wound site was irrigated again with the IRRISEPT which is low concentration chlorhexidine gluconate solution. The open wound at the dorsal aspect of right foot was packed with 1 inch iodoform packing. Proximal and distal ends of the surgical site was sutured with #3-0 Nylon with a small opening in the middle for drainage. Xeroform was applied to the dorsal superficial wound. Right foot was dressed with 4x4, ABD pads, Kerlix and REMIGIO bndage. The attending was present during the entire case. Estimated Blood Loss: Less than 20 mL Complications: None Discharge & Condition: Postoperative Condition: The patient tolerated the anesthesia and procedure well and was escorted to the recovery room with vital signs stable and neurovascular status intact to the right foot. The patient will return to hospital bed. The patient will remain non-weight bearing to his right foot. The patient will be followed by Dr. Carter
[2018-08-24] MEDS: Piperacillin/Tazobact 3.375 GM in Sodium Chloride 100 ML IVPB SCH ×4 (04:23→21:46)
[2018-08-24 07:30] LABS: ALB/GLOB RATIO 0.9 (1.0-2.1); ALBUMIN 3.3 g/dL (3.5-5.0); ALT/SGPT 34 U/L (21-72); AST/SGOT 26 U/L (17-59); BLOOD UREA NITROGEN 14 mg/dL (9-20); CALCIUM 8.5 mg/dl (8.6-10.4); GFR NON-AFRICAN AMERICAN > 60
[2018-08-24 07:31] LABS: BASO % 0.4 % (0.0-2.0); EOS # 0.4 K/uL (0.0-0.7); EOS % 3.7 % (0.0-4.0); LYMPH # 2.9 K/uL (1.0-4.3); LYMPH % 30.1 % (20.0-40.0); MEAN CELL VOLUME 85.7 fL (80.0-94.0); MEAN CORPUSCULAR HEMOGLOBIN 29.6 pg (27.0-31.0); MEAN CORPUSCULAR HGB CONC 34.5 g/dL (33.0-37.0); MEAN PLATELET VOLUME 8.5 fL (7.2-11.7); MONO # 0.6 K/uL (0.0-0.8); NEUT # 5.8 K/uL (1.8-7.0); NEUT % 59.8 % (50.0-75.0); NRBC % 0.1 % (0.0-2.0); RBC 4.41 Mil/uL (4.40-5.90); RED CELL DISTRIBUTION WIDTH 13.6 % (11.5-14.5); WHITE BLOOD COUNT 9.7 K/uL (4.8-10.8)
[2018-08-24] MEDS: (Novolog) Insulin Aspart, Recombinant 100 u/ml 10 ml vial SC SCH ×4 (07:50→21:17)
[2018-08-24] MEDS: Enoxaparin 40 mg Syringe SC SCH (09:25)
[2018-08-24] MEDS: Pantoprazole 40 mg EC Tab PO SCH (09:25)
[2018-08-24] MEDS: Naproxen 550 mg Tab PO SCH ×2 (09:25→17:38)
[2018-08-24] MEDS: Oxycodone/Acetaminophen 5/325 mg Tab PO PRN ×3 (09:56→22:14)
--- NOTE | 2018-08-24 14:46 | CP.PCM.PN ---
Subjective - Date & Time of Evaluation Date of Evaluation: 08/24/18 Time of Evaluation: 07:30 - Subjective Subjective: clinically same Objective - Vital Signs/Intake and Output Vital Signs (last 24 hours): Temp Pulse Resp BP Pulse Ox 98.7 F 81 20 156/101 H 96 08/24/18 07:59 08/24/18 07:59 08/24/18 07:59 08/24/18 07:59 08/24/18 07:59 Intake and Output: 08/24/18 08/24/18 06:59 18:59 Intake Total 850 Balance 850 - Medications Medications: Current Medications Acetaminophen (Tylenol 325mg Tab) 650 mg PO Q6 PRN PRN Reason: Pain, Mild (1-3) Albuterol/Ipratropium (Duoneb 3 Mg/0.5 Mg (3 Ml) Ud) 3 ml INH RQ4 PRN PRN Reason: Shortness of Breath Enoxaparin Sodium (Lovenox) 40 mg SC DAILY [facility] Last Admin: 08/24/18 09:25 Dose: 40 mg Piperacillin Sod/Tazobactam (Sod 3.375 gm/ Sodium Chloride) 100 mls @ 200 mls/hr IVPB Q6H [facility]; Protocol Last Admin: 08/24/18 11:30 Dose: 200 mls/hr Vancomycin HCl 1 gm/ Sodium (Chloride) 250 mls @ 166.7 mls/hr IVPB DAILY [facility]; Protocol Last Admin: 08/24/18 09:32 Dose: 166.7 mls/hr Insulin Aspart (Novolog) 0 unit SC ACHS [facility]; Protocol Last Admin: 08/24/18 12:38 Dose: 4 units Methadone HCl (Methadone) 110 mg PO DAILY [facility] Last Admin: 08/24/18 09:25 Dose: 110 mg Naproxen (Anaprox Ds) 550 mg PO BID [facility] Last Admin: 08/24/18 09:25 Dose: 550 mg Nicotine (Nicoderm Cq) 1 patch TD DAILY [facility] Last Admin: 08/24/18 09:24 Dose: 1 patch Oxycodone/Acetaminophen (Percocet 5/325 Mg Tab) 2 tab PO Q4H PRN PRN Reason: Pain, severe (8-10) Stop: 08/25/18 17:45 Last Admin: 08/24/18 09:56 Dose: 2 tab Pantoprazole Sodium (Protonix Ec Tab) 40 mg PO DAILY [facility] Last Admin: 08/24/18 09:25 Dose: 40 mg - Labs Labs: 08/24/18 06:43 08/24/18 06:43 PT 12.4 SECONDS (9.7-12.2) H 08/18/18 11:00 INR 1.1 08/18/18 11:00 APTT 25 SECONDS (21-34) 08/18/18 11:00 - Constitutional Appears: Well - Head Exam Head Exam: ATRAUMATIC, NORMAL INSPECTION, NORMOCEPHALIC - Eye Exam Eye Exam: EOMI, Normal appearance, PERRL Pupil Exam: NORMAL ACCOMODATION, PERRL - ENT Exam ENT Exam: Mucous Membranes Moist, Normal Exam - Neck Exam Neck Exam: Full ROM, Normal Inspection. 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
--- NOTE | 2018-08-24 16:22 | CP.PCM.PN ---
Subjective - Date & Time of Evaluation Date of Evaluation: 08/24/18 Time of Evaluation: 16:17 - Subjective Subjective: Podiatry Progress Note for Dr. Raul GalvezM seen and evaluated at bedside 5 days s/p I and D of right foot. Patient is AAO x 3 and NAD at time of visit. States that pain is diminished at this time and well controlled. Denies any further pedal complaints or overnight events. Denies any recent N/V/F/C/CP/SOB/D Objective - Vital Signs/Intake and Output Vital Signs (last 24 hours): Temp Pulse Resp BP Pulse Ox 97.9 F 58 L 20 163/94 H 97 08/24/18 15:00 08/24/18 15:00 08/24/18 15:00 08/24/18 15:00 08/24/18 15:00 Intake and Output: 08/24/18 08/24/18 06:59 18:59 Intake Total 850 Balance 850 - Medications Medications: Current Medications Acetaminophen (Tylenol 325mg Tab) 650 mg PO Q6 PRN PRN Reason: Pain, Mild (1-3) Albuterol/Ipratropium (Duoneb 3 Mg/0.5 Mg (3 Ml) Ud) 3 ml INH RQ4 PRN PRN Reason: Shortness of Breath Enoxaparin Sodium (Lovenox) 40 mg SC DAILY [facility] Last Admin: 08/24/18 09:25 Dose: 40 mg Piperacillin Sod/Tazobactam (Sod 3.375 gm/ Sodium Chloride) 100 mls @ 200 mls/hr IVPB Q6H [facility]; Protocol Last Admin: 08/24/18 11:30 Dose: 200 mls/hr Vancomycin HCl 1 gm/ Sodium (Chloride) 250 mls @ 166.7 mls/hr IVPB DAILY [facility]; Protocol Last Admin: 08/24/18 09:32 Dose: 166.7 mls/hr Insulin Aspart (Novolog) 0 unit SC ACHS [facility]; Protocol Last Admin: 08/24/18 12:38 Dose: 4 units Methadone HCl (Methadone) 110 mg PO DAILY [facility] Last Admin: 08/24/18 09:25 Dose: 110 mg Naproxen (Anaprox Ds) 550 mg PO BID [facility] Last Admin: 08/24/18 09:25 Dose: 550 mg Nicotine (Nicoderm Cq) 1 patch TD DAILY [facility] Last Admin: 08/24/18 09:24 Dose: 1 patch Oxycodone/Acetaminophen (Percocet 5/325 Mg Tab) 2 tab PO Q4H PRN PRN Reason: Pain, severe (8-10) Stop: 08/25/18 17:45 Last Admin: 08/24/18 09:56 Dose: 2 tab Pantoprazole Sodium (Protonix Ec Tab) 40 mg PO DAILY [facility] Last Admin: 08/24/18 09:25 Dose: 40 mg - Labs Labs: 08/24/18 06:43 08/24/18 06:43 PT 12.4 SECONDS (9.7-12.2) H 08/18/18 11:00 INR 1.1 08/18/18 11:00 APTT 25 SECONDS (21-34) 08/18/18 11:00 - Constitutional Appears: Well, Non-toxic, No Acute Distress - Extremities Exam Additional comments: RLE focused exam: Vasc: DP/PT pulses fully palpable 2/4 b/l. Skin temperature warm to warm from proximal to distal. CFT < 3 seconds to all digits b/l. Minimal non-pitting edema to dorsal right foot. Derm: Incision measuring approximately 10 cm noted to the dorsum of the right foot, with central opening. Minimal arsen-wound erythema present. No malodor, no active drainage, no purulence, no tracking, tunneling or undermining. No other clinical signs of infection noted. Neuro: Epicritic and protective sensation grossly intact Ortho: moderate pain noted to palpation of right dorsal foot at site of wound, MM is 5/5 in all four compartments: dorsiflexion, plantarflexion, inversion and eversion - Neurological Exam Neurological Exam: Alert, Awake, Oriented x3 - Psychiatric Exam Psychiatric exam: Normal Affect, Normal Mood Assessment and Plan - Assessment and Plan (Free Text) Assessment: 48M seen and evaluated at bedside 5 days s/p I and D of right foot Plan: Patient seen and evaluated Plan discussed with Dr. Raul Tan Continue abx per ID Intra-op wound cx: Staph aureus Surgical site packed and dressed with DSD, REMIGIO No plan for further surgical intervention at this time Podiatry will continue to follow while patient in house
--- NOTE | 2018-08-24 22:59 | CP.PCM.PN ---
Subjective - Date & Time of Evaluation Date of Evaluation: 08/24/18 Time of Evaluation: 10:00 - Subjective Subjective: seen on rounds denies fever pain is less Objective - Vital Signs/Intake and Output Vital Signs (last 24 hours): Temp Pulse Resp BP Pulse Ox 97.9 F 58 L 20 163/94 H 97 08/24/18 15:00 08/24/18 15:00 08/24/18 15:00 08/24/18 15:00 08/24/18 15:00 Intake and Output: 08/24/18 08/25/18 18:59 06:59 Intake Total 850 Balance 850 - Medications Medications: Current Medications Acetaminophen (Tylenol 325mg Tab) 650 mg PO Q6 PRN PRN Reason: Pain, Mild (1-3) Albuterol/Ipratropium (Duoneb 3 Mg/0.5 Mg (3 Ml) Ud) 3 ml INH RQ4 PRN PRN Reason: Shortness of Breath Enoxaparin Sodium (Lovenox) 40 mg SC DAILY [facility] [place] Last Admin: 08/24/18 09:25 Dose: 40 mg Piperacillin Sod/Tazobactam (Sod 3.375 gm/ Sodium Chloride) 100 mls @ 200 mls/hr IVPB Q6H [facility] [place]; Protocol Last Admin: 08/24/18 21:46 Dose: 200 mls/hr Vancomycin HCl 1 gm/ Sodium (Chloride) 250 mls @ 166.7 mls/hr IVPB DAILY [facility] [place]; Protocol Last Admin: 08/24/18 09:32 Dose: 166.7 mls/hr Insulin Aspart (Novolog) 0 unit SC ACHS [facility] [place]; Protocol Last Admin: 08/24/18 21:17 Dose: Not Given Methadone HCl (Methadone) 110 mg PO DAILY [facility] Last Admin: 08/24/18 09:25 Dose: 110 mg Naproxen (Anaprox Ds) 550 mg PO BID [facility] Last Admin: 08/24/18 17:38 Dose: 550 mg Nicotine (Nicoderm Cq) 1 patch TD DAILY [facility] [place] Last Admin: 08/24/18 09:24 Dose: 1 patch Oxycodone/Acetaminophen (Percocet 5/325 Mg Tab) 2 tab PO Q4H PRN PRN Reason: Pain, severe (8-10) Stop: 08/25/18 17:45 Last Admin: 08/24/18 22:14 Dose: 2 tab Pantoprazole Sodium (Protonix Ec Tab) 40 mg PO DAILY [facility] Last Admin: 08/24/18 09:25 Dose: 40 mg - Labs Labs: 08/24/18 06:43 08/24/18 06:43 PT 12.4 SECONDS (9.7-12.2) H 08/18/18 11:00 INR 1.1 08/18/18 11:00 APTT 25 SECONDS (21-34) 08/18/18 11:00 - Constitutional Appears: Non-toxic, Chronically Ill - Head Exam Head Exam: NORMOCEPHALIC - Eye Exam Eye Exam: PERRL - ENT Exam ENT Exam: Mucous Membranes Dry - Respiratory Exam Respiratory Exam: Decreased Breath Sounds - Cardiovascular Exam Cardiovascular Exam: REGULAR RHYTHM - GI/Abdominal Exam GI & Abdominal Exam: Distended - Rectal Exam Rectal Exam: Deferred - Exam Exam: NORMAL INSPECTION Assessment and Plan (1) Diabetes mellitus Status: Acute (2) Osteomyelitis of ankle and foot Status: Inactive (3) Puncture wound of foot with foreign body Status: Acute - Assessment and Plan (Free Text) Assessment: s/p I and D no OM cont iv then po rx with keflex cont wound care Plan: MRI neg c/s + MSSA cont IV then PO antiv
[2018-08-25] MEDS: Piperacillin/Tazobact 3.375 GM in Sodium Chloride 100 ML IVPB SCH ×2 (03:37→09:55)
[2018-08-25] MEDS: (Novolog) Insulin Aspart, Recombinant 100 u/ml 10 ml vial SC SCH ×4 (08:26→21:14)
[2018-08-25] MEDS: Pantoprazole 40 mg EC Tab PO SCH (09:35)
[2018-08-25] MEDS: Naproxen 550 mg Tab PO SCH ×2 (09:35→18:00)
[2018-08-25] MEDS: Enoxaparin 40 mg Syringe SC SCH (09:35)
[2018-08-25] MEDS: Oxycodone/Acetaminophen 5/325 mg Tab PO PRN (09:55)
--- NOTE | 2018-08-25 10:22 | CP.PCM.PN ---
Subjective - Date & Time of Evaluation Date of Evaluation: 08/25/18 Time of Evaluation: 10:19 - Subjective Subjective: Podiatry Progress Note for Dr. Raul GalvezM seen and evaluated at bedside 6 days s/p I and D of right foot. Patient is AAO x 3 and NAD at time of visit. States that pain to his foot continues to improve at this time. Denies any further pedal complaints or overnight events. Denies any recent N/V/F/C/CP/SOB/D Objective - Vital Signs/Intake and Output Vital Signs (last 24 hours): Temp Pulse Resp BP Pulse Ox 97.5 F L 75 20 175/90 H 97 08/25/18 08:00 08/25/18 08:00 08/25/18 08:00 08/25/18 08:00 08/25/18 08:00 Intake and Output: 08/25/18 08/25/18 06:59 18:59 Intake Total 340 Balance 340 - Medications Medications: Current Medications Acetaminophen (Tylenol 325mg Tab) 650 mg PO Q6 PRN PRN Reason: Pain, Mild (1-3) Albuterol/Ipratropium (Duoneb 3 Mg/0.5 Mg (3 Ml) Ud) 3 ml INH RQ4 PRN PRN Reason: Shortness of Breath Enoxaparin Sodium (Lovenox) 40 mg SC DAILY [facility] Last Admin: 08/25/18 09:35 Dose: 40 mg Piperacillin Sod/Tazobactam (Sod 3.375 gm/ Sodium Chloride) 100 mls @ 200 mls/hr IVPB Q6H [facility]; Protocol Last Admin: 08/25/18 09:55 Dose: 200 mls/hr Insulin Aspart (Novolog) 0 unit SC ACHS [facility]; Protocol Last Admin: 08/25/18 08:26 Dose: 1 units Methadone HCl (Methadone) 110 mg PO DAILY [facility] Last Admin: 08/25/18 09:35 Dose: 110 mg Naproxen (Anaprox Ds) 550 mg PO BID [facility] Last Admin: 08/25/18 09:35 Dose: 550 mg Nicotine (Nicoderm Cq) 1 patch TD DAILY [facility] Last Admin: 08/25/18 09:35 Dose: 1 patch Oxycodone/Acetaminophen (Percocet 5/325 Mg Tab) 2 tab PO Q4H PRN PRN Reason: Pain, severe (8-10) Stop: 08/25/18 17:45 Last Admin: 08/25/18 09:55 Dose: 2 tab Pantoprazole Sodium (Protonix Ec Tab) 40 mg PO DAILY [facility] Last Admin: 08/25/18 09:35 Dose: 40 mg - Labs Labs: 08/24/18 06:43 08/24/18 06:43 PT 12.4 SECONDS (9.7-12.2) H 08/18/18 11:00 INR 1.1 08/18/18 11:00 APTT 25 SECONDS (21-34) 08/18/18 11:00 - Constitutional Appears: Well, Non-toxic, No Acute Distress - Extremities Exam Additional comments: RLE focused exam: Vasc: DP/PT pulses fully palpable 2/4 b/l. Skin temperature warm to warm from proximal to distal. CFT < 3 seconds to all digits b/l. Minimal non-pitting edema to dorsal right foot. Derm: Incision measuring approximately 10 cm noted to the dorsum of the right foot, with central opening. No arsen-wound erythema present. No malodor, no active drainage, no purulence, no tracking, tunneling or undermining. No other clinical signs of infection noted. Neuro: Epicritic and protective sensation grossly intact Ortho: moderate pain noted to palpation of right dorsal foot at site of wound, MM is 5/5 in all four compartments: dorsiflexion, plantarflexion, inversion and eversion - Neurological Exam Neurological Exam: Alert, Awake, Oriented x3 - Psychiatric Exam Psychiatric exam: Normal Affect, Normal Mood Assessment and Plan - Assessment and Plan (Free Text) Assessment: 48M seen and evaluated at bedside 6 days s/p I and D of right foot Plan: Patient seen and evaluated Plan discussed with Dr. Raul Tan Continue abx per ID Packing removed Wound cleansed with saline and dressed with xeroform, DSD, REMIGIO No plan for further surgical intervention at this time Podiatry will continue to follow while patient in house
--- NOTE | 2018-08-25 10:38 | CP.PCM.PN ---
"<Sonja Turcios - Last Filed: 08/25/18 13:36> Subjective - Date & Time of Evaluation Date of Evaluation: 08/25/18 Time of Evaluation: 10:20 - Subjective Subjective: Patient seen and examined at bedside. Offers no complaints at this time. He denies any fevers, chill, chest pain, SOB, abdominal pain, changes in bowel habits and urinary symptoms. Objective - Vital Signs/Intake and Output Vital Signs (last 24 hours): Temp Pulse Resp BP Pulse Ox 97.5 F L 75 20 175/90 H 97 08/25/18 08:00 08/25/18 08:00 08/25/18 08:00 08/25/18 08:00 08/25/18 08:00 Intake and Output: 08/25/18 08/25/18 06:59 18:59 Intake Total 340 Balance 340 - Medications Medications: Current Medications Acetaminophen (Tylenol 325mg Tab) 650 mg PO Q6 PRN PRN Reason: Pain, Mild (1-3) Albuterol/Ipratropium (Duoneb 3 Mg/0.5 Mg (3 Ml) Ud) 3 ml INH RQ4 PRN PRN Reason: Shortness of Breath Enoxaparin Sodium (Lovenox) 40 mg SC DAILY [facility] Last Admin: 08/25/18 09:35 Dose: 40 mg Piperacillin Sod/Tazobactam (Sod 3.375 gm/ Sodium Chloride) 100 mls @ 200 mls/hr IVPB Q6H [facility]; Protocol Last Admin: 08/25/18 09:55 Dose: 200 mls/hr Vancomycin HCl 1 gm/ Sodium (Chloride) 250 mls @ 166.7 mls/hr IVPB Q12H [facility]; Protocol Insulin Aspart (Novolog) 0 unit SC ACHS [facility]; Protocol Last Admin: 08/25/18 08:26 Dose: 1 units Methadone HCl (Methadone) 110 mg PO DAILY [facility] Last Admin: 08/25/18 09:35 Dose: 110 mg Naproxen (Anaprox Ds) 550 mg PO BID [facility] Last Admin: 08/25/18 09:35 Dose: 550 mg Nicotine (Nicoderm Cq) 1 patch TD DAILY [facility] Last Admin: 08/25/18 09:35 Dose: 1 patch Oxycodone/Acetaminophen (Percocet 5/325 Mg Tab) 2 tab PO Q4H PRN PRN Reason: Pain, severe (8-10) Stop: 08/25/18 17:45 Last Admin: 08/25/18 09:55 Dose: 2 tab Pantoprazole Sodium (Protonix Ec Tab) 40 mg PO DAILY [facility] Last Admin: 08/25/18 09:35 Dose: 40 mg - Labs Labs: 08/24/18 06:43 08/24/18 06:43 PT 12.4 SECONDS (9.7-12.2) H 08/18/18 11:00 INR 1.1 08/18/18 11:00 APTT 25 SECONDS (21-34) 08/18/18 11:00 - Additional Findings Additional findings: - Constitutional Appears: No Acute Distress - Head Exam Head Exam: ATRAUMATIC, NORMAL INSPECTION - Eye Exam Eye Exam: EOMI, Normal appearance - ENT Exam ENT Exam: Mucous Membranes Moist - Respiratory Exam Respiratory Exam: Clear to Ausculation Bilateral, NORMAL BREATHING PATTERN. absent: Rales, Rhonchi, Wheezes, Respiratory Distress - Cardiovascular Exam Cardiovascular Exam: REGULAR RHYTHM, +S1, +S2 - GI/Abdominal Exam GI & Abdominal Exam: Soft, Normal Bowel Sounds. absent: Distended, Firm, Guar ding, Tenderness - Extremities Exam Additional comments: LLE- pulses palpable, sensation intact RLE- dressing and mary wrapped placed- clean, dry, intact; sensation intact; - Neurological Exam Neurological Exam: Alert, Awake, Oriented x3 - Psychiatric Exam Psychiatric exam: Normal Affect, Normal Mood - Skin Skin Exam: Dry, Normal Color, Warm Assessment and Plan - Assessment and Plan (Free Text) Assessment: This patient is a 47 year old male with a PMHx of DM II, and asthma admitted for evaluation and treatment of right foot cellulitis w/ abscess. Plan: Right Foot cellulitis w/ Abscess. S/P Right foot abscess I&D on 08/17/18 & 08/19/18 Podiatry Consulted (Dr. Carter), Recs Appreciated ID Consulted (Dr. Echols), Recs Appreciated. Foot X-ray (Admission): No acute fracture dislocation. Severe hallux valgus deformity. Forefoot midfoot dorsal soft tissue edema. Lower Ext MRI (08/17/18): Subcutaneous fluid collection in the mid to distal right foot superficial to the distal extensor tendons measures 2.9 x 2.5 x 2.2 centimeter may represent subcutaneous abscess. No evidence of osteomyelitis. Blood Culture (08/15/18): NEGATIVE | Wound Culture: (08/17/18): POSITIVE for Staph Aureus. Physical Therapy Eval/Tx | No Weight Bearing to Right Lower Ext. Meds: Tylenol PRN Morphine 4mg IVP PRN (Discontinued) Naproxen 550mg PO BID [facility] Percocet 1 tab & 2 tabs Q4H PRN (Discontinued, due to hx of opiod abuse) Zosyn 3.375 Q6H [facility] (Discontinued) Vancomycin 1gram Daily. (Discontinue) Moxifloxacin 400mg Daily to start tomorrow for 14 days Toradol 30mg Q6H Hypertension Meds: Lisinopril 5mg PO DM II Meds: Insulin Sliding Scale ACHS Asthma Meds: DuoNebs PRN Opiod Abuse Meds: Methadone 110 Daily. Tobacco Abuse Meds: Nicotine Patch. Proph Lovenox, SCD Contraindicated Protonix Daily Heart Health Diet. Dispo: PENDING [facility] Placement. Seen and discussed with Attending. Sonja Turcios, PGY-2 <Claudy Rapp S - Last Filed: 08/25/18 15:31> Objective - Vital Signs/Intake and Output Vital Signs (last 24 hours): Temp Pulse Resp BP Pulse Ox 97.5 F L 75 20 175/90 H 97 08/25/18 08:00 08/25/18 08:00 08/25/18 08:00 08/25/18 08:00 08/25/18 08:00 Intake and Output: 08/25/18 08/25/18 06:59 18:59 Intake Total 340 700 Balance 340 700 - Medications Medications: Current Medications Acetaminophen (Tylenol 325mg Tab) 650 mg PO Q6 PRN PRN Reason: Pain, Mild (1-3) Albuterol/Ipratropium (Duoneb 3 Mg/0.5 Mg (3 Ml) Ud) 3 ml INH RQ4 PRN PRN Reason: Shortness of Breath Enoxaparin Sodium (Lovenox) 40 mg SC DAILY [facility] Last Admin: 08/25/18 09:35 Dose: 40 mg Cefazolin Sodium 1,000 mg/ (Sodium Chloride) 100 mls @ 100 mls/hr IVPB Q8H [facility]; Protocol Last Admin: 08/25/18 14:21 Dose: 100 mls/hr Insulin Aspart (Novolog) 0 unit SC ACHS [facility]; Protocol Last Admin: 08/25/18 12:11 Dose: 3 units Ketorolac Tromethamine (Toradol) 30 mg IVP Q6 PRN PRN Reason: Pain, Moderate-Severe (4-10) Lisinopril (Zestril) 5 mg PO DAILY [facility] Last Admin: 08/25/18 14:21 Dose: 5 mg Methadone HCl (Methadone) 110 mg PO DAILY [facility] Last Admin: 08/25/18 09:35 Dose: 110 mg Naproxen (Anaprox Ds) 550 mg PO BID [facility] Last Admin: 08/25/18 09:35 Dose: 550 mg Nicotine (Nicoderm Cq) 1 patch TD DAILY [facility] Last Admin: 08/25/18 09:35 Dose: 1 patch Pantoprazole Sodium (Protonix Ec Tab) 40 mg PO DAILY [facility] Last Admin: 08/25/18 09:35 Dose: 40 mg - Labs Labs: 08/24/18 06:43 08/24/18 06:43 PT 12.4 SECONDS (9.7-12.2) H 08/18/18 11:00 INR 1.1 08/18/18 11:00 APTT 25 SECONDS (21-34) 08/18/18 11:00 Attending/Attestation - Attestation I have personally seen and examined this patient.: Yes I have fully participated in the care of the patient.: Yes I have reviewed all pertinent clinical information, including history, physical exam and plan: Yes Notes (Text): 08/25/18 15:31 as agreed"
[2018-08-25] MEDS ORDERED: Vancomycin 1 gm/NS 200 ml 1 GM/200 ML BAG IVPB SCH (11:00)
--- NOTE | 2018-08-25 15:32 | CP.PCM.PN ---
"Subjective - Date & Time of Evaluation Date of Evaluation: 08/25/18 Time of Evaluation: 07:30 - Subjective Subjective: clinically same Objective - Vital Signs/Intake and Output Vital Signs (last 24 hours): Temp Pulse Resp BP Pulse Ox 97.5 F L 75 20 175/90 H 97 08/25/18 08:00 08/25/18 08:00 08/25/18 08:00 08/25/18 08:00 08/25/18 08:00 Intake and Output: 08/25/18 08/25/18 06:59 18:59 Intake Total 340 700 Balance 340 700 - Medications Medications: Current Medications Acetaminophen (Tylenol 325mg Tab) 650 mg PO Q6 PRN PRN Reason: Pain, Mild (1-3) Albuterol/Ipratropium (Duoneb 3 Mg/0.5 Mg (3 Ml) Ud) 3 ml INH RQ4 PRN PRN Reason: Shortness of Breath Enoxaparin Sodium (Lovenox) 40 mg SC DAILY [facility] Last Admin: 08/25/18 09:35 Dose: 40 mg Cefazolin Sodium 1,000 mg/ (Sodium Chloride) 100 mls @ 100 mls/hr IVPB Q8H [facility]; Protocol Last Admin: 08/25/18 14:21 Dose: 100 mls/hr Insulin Aspart (Novolog) 0 unit SC ACHS [facility]; Protocol Last Admin: 08/25/18 12:11 Dose: 3 units Ketorolac Tromethamine (Toradol) 30 mg IVP Q6 PRN PRN Reason: Pain, Moderate-Severe (4-10) Lisinopril (Zestril) 5 mg PO DAILY [facility] Last Admin: 08/25/18 14:21 Dose: 5 mg Methadone HCl (Methadone) 110 mg PO DAILY [facility] Last Admin: 08/25/18 09:35 Dose: 110 mg Naproxen (Anaprox Ds) 550 mg PO BID [facility] Last Admin: 08/25/18 09:35 Dose: 550 mg Nicotine (Nicoderm Cq) 1 patch TD DAILY [facility] Last Admin: 08/25/18 09:35 Dose: 1 patch Pantoprazole Sodium (Protonix Ec Tab) 40 mg PO DAILY [facility] Last Admin: 08/25/18 09:35 Dose: 40 mg - Labs Labs: 08/24/18 06:43 11/12/18 06:43 PT 12.4 SECONDS (9.7-12.2) H 08/18/18 11:00 INR 1.1 08/18/18 11:00 APTT 25 SECONDS (21-34) 08/18/18 11:00 - Constitutional Appears: Well - Head Exam Head Exam: ATRAUMATIC, NORMAL INSPECTION, NORMOCEPHALIC - Eye Exam Eye Exam: EOMI, Normal appearance, PERRL Pupil Exam: NORMAL ACCOMODATION, PERRL - ENT Exam ENT Exam: Mucous Membranes Moist, Normal Exam - Neck Exam Neck Exam: Full ROM, Normal Inspection. absent: Lymphadenopathy - Respiratory Exam Respiratory Exam: Decreased Breath Sounds - Cardiovascular Exam Cardiovascular Exam: REGULAR RHYTHM, +S1, +S2 - GI/Abdominal Exam GI & Abdominal Exam: Soft, Diminished Bowel Sounds - Rectal Exam Rectal Exam: Deferred Assessment and Plan - Assessment and Plan (Free Text) Plan: Patient agreed to go to the [place] [facility] as no [facility] will take him vancomycin Zosyn Culture were seen Patient received antibiotic for 2 weeks Podiatry consult Discussed with the project archivist and social worker assistant As ordered Right Foot cellulitis w/ Abscess. S/P Right foot abscess I&D on 08/17/18 & 08/19/18 Podiatry Consulted (Dr. Carter), Recs Appreciated ID Consulted (Dr. Echols), Recs Appreciated. Foot X-ray (Admission): No acute fracture dislocation. Severe hallux valgus deformity. Forefoot midfoot dorsal soft tissue edema. Lower Ext MRI (08/17/18): Subcutaneous fluid collection in the mid to distal right foot superficial to the distal extensor tendons measures 2.9 x 2.5 x 2.2 centimeter may represent subcutaneous abscess. No evidence of osteomyelitis. Blood Culture (08/15/18): NEGATIVE | Wound Culture: (08/17/18): POSITIVE for Staph Aureus. Physical Therapy Eval/Tx | No Weight Bearing to Right Lower Ext. Meds: Tylenol PRN Morphine 4mg IVP PRN (Discontinued) Naproxen 550mg PO BID [facility] Percocet 1 tab & 2 tabs Q4H PRN (Discontinued, due to hx of opiod abuse) Zosyn 3.375 Q6H [facility] (Discontinued) Vancomycin 1gram Daily. (Discontinue) Moxifloxacin 400mg Daily to start tomorrow for 14 days Toradol 30mg Q6H Hypertension Meds: Lisinopril 5mg PO DM II Meds: Insulin Sliding Scale ACHS Asthma Meds: DuoNebs PRN Opiod Abuse Meds: Methadone 110 Daily. Tobacco Abuse Meds: Nicotine Patch. Proph Lovenox, SCD Contraindicated Protonix Daily Heart Health Diet. Dispo: PENDING [facility] Placement."
[2018-08-26 07:22] LABS: BASO # 0.1 K/uL (0.0-0.2); BASO % 0.7 % (0.0-2.0); EOS # 0.3 K/uL (0.0-0.7); EOS % 3.1 % (0.0-4.0); HEMOGLOBIN 13.8 g/dL (12.0-18.0); LYMPH # 3.3 K/uL (1.0-4.3); LYMPH % 29.6 % (20.0-40.0); MEAN CELL VOLUME 85.5 fL (80.0-94.0); MEAN CORPUSCULAR HEMOGLOBIN 29.2 pg (27.0-31.0); MEAN CORPUSCULAR HGB CONC 34.2 g/dL (33.0-37.0); MEAN PLATELET VOLUME 8.8 fL (7.2-11.7); MONO # 0.5 K/uL (0.0-0.8); MONO % 4.8 % (0.0-10.0); NEUT % 61.8 % (50.0-75.0); RBC 4.72 Mil/uL (4.40-5.90); RED CELL DISTRIBUTION WIDTH 13.8 % (11.5-14.5); WHITE BLOOD COUNT 11.3 K/uL (4.8-10.8)
[2018-08-26 08:00] LABS: ALBUMIN 3.6 g/dL (3.5-5.0); ALT/SGPT 32 U/L (21-72); AST/SGOT 30 U/L (17-59); BLOOD UREA NITROGEN 19 mg/dL (9-20); GFR NON-AFRICAN AMERICAN > 60
[2018-08-26] MEDS: (Novolog) Insulin Aspart, Recombinant 100 u/ml 10 ml vial SC SCH ×4 (08:39→21:31)
[2018-08-26] MEDS: Naproxen 550 mg Tab PO SCH ×2 (09:41→17:32)
[2018-08-26] MEDS: Pantoprazole 40 mg EC Tab PO SCH (09:41)
[2018-08-26] MEDS: Enoxaparin 40 mg Syringe SC SCH (09:42)
[2018-08-26] MEDS ORDERED: Moxifloxacin IV 400mg/250ml NS 400 MG/250 ML BAG IVPB SCH ×2 (10:00→11:45)
--- NOTE | 2018-08-26 10:10 | CP.PCM.PN ---
Subjective - Date & Time of Evaluation Date of Evaluation: 08/26/18 Time of Evaluation: 10:07 - Subjective Subjective: Podiatry Progress Note for Dr. Raul GalvezM seen and evaluated at bedside 7 days s/p I and D of right foot. Patient is AAO x 3 and NAD at time of visit. States that pain to his foot continues to improve at this time and that he has been walking with his surgical shoe with no pain. Denies any further pedal complaints or overnight events. Denies any recent N/V/F/C/CP/SOB/D Objective - Vital Signs/Intake and Output Vital Signs (last 24 hours): Temp Pulse Resp BP Pulse Ox 98.1 F 58 L 20 165/94 H 96 08/26/18 07:59 08/26/18 07:59 08/26/18 07:59 08/26/18 07:59 08/26/18 07:59 Intake and Output: 08/26/18 08/26/18 06:59 18:59 Intake Total 500 Output Total 1000 Balance -500 - Medications Medications: Current Medications Acetaminophen (Tylenol 325mg Tab) 650 mg PO Q6 PRN PRN Reason: Pain, Mild (1-3) Albuterol/Ipratropium (Duoneb 3 Mg/0.5 Mg (3 Ml) Ud) 3 ml INH RQ4 PRN PRN Reason: Shortness of Breath Enoxaparin Sodium (Lovenox) 40 mg SC DAILY [facility] Last Admin: 08/26/18 09:42 Dose: 40 mg Cefazolin Sodium 1,000 mg/ (Sodium Chloride) 100 mls @ 100 mls/hr IVPB Q8H [facility]; Protocol Last Admin: 08/26/18 05:50 Dose: 100 mls/hr Insulin Aspart (Novolog) 0 unit SC ACHS [facility]; Protocol Last Admin: 08/26/18 08:39 Dose: 1 units Ketorolac Tromethamine (Toradol) 30 mg IVP Q6 PRN PRN Reason: Pain, Moderate-Severe (4-10) Last Admin: 08/26/18 09:45 Dose: 30 mg Lisinopril (Zestril) 5 mg PO DAILY [facility] Last Admin: 08/26/18 09:41 Dose: 5 mg Methadone HCl (Methadone) 110 mg PO DAILY [facility] Last Admin: 08/26/18 09:41 Dose: 110 mg Naproxen (Anaprox Ds) 550 mg PO BID [facility] Last Admin: 08/26/18 09:41 Dose: 550 mg Nicotine (Nicoderm Cq) 1 patch TD DAILY [facility] Last Admin: 08/26/18 09:42 Dose: 1 patch Pantoprazole Sodium (Protonix Ec Tab) 40 mg PO DAILY [facility] Last Admin: 08/26/18 09:41 Dose: 40 mg - Labs Labs: 08/26/18 07:11 08/26/18 07:11 PT 12.4 SECONDS (9.7-12.2) H 08/18/18 11:00 INR 1.1 08/18/18 11:00 APTT 25 SECONDS (21-34) 08/18/18 11:00 - Constitutional Appears: Well, Non-toxic, No Acute Distress - Extremities Exam Additional comments: RLE focused exam: Vasc: DP/PT pulses fully palpable 2/4 b/l. Skin temperature warm to warm from proximal to distal. CFT < 3 seconds to all digits b/l. Minimal non-pitting edema to dorsal right foot. Derm: Incision measuring approximately 10 cm noted to the dorsum of the right foot, with central opening. No arsen-wound erythema present. No malodor, mild amounts of serous drainage noted today; most likely as a result of no packing in the wound overnight and increased walking by patient, no purulence, no tracking, tunneling or undermining. No other clinical signs of infection noted. Neuro: Epicritic and protective sensation grossly intact Ortho: minimal, improving pain noted to palpation of right dorsal foot at site of wound, MM is 5/5 in all four compartments: dorsiflexion, plantarflexion, inversion and eversion - Neurological Exam Neurological Exam: Alert, Awake, Oriented x3 - Psychiatric Exam Psychiatric exam: Normal Affect, Normal Mood Assessment and Plan - Assessment and Plan (Free Text) Assessment: 48M seen and evaluated at bedside 7 days s/p I and D of right foot Plan: Patient seen and evaluated Plan discussed with Dr. Raul Tan, WBC 11.3 will monitor Continue abx per ID Wound dressed with iodoform packing, xeroform, gauze, kirlix, REMIGIO No plan for further surgical intervention at this time Podiatry will continue to follow while patient in house
--- NOTE | 2018-08-26 14:38 | CP.PCM.PN ---
Subjective - Date & Time of Evaluation Date of Evaluation: 08/26/18 Time of Evaluation: 07:30 - Subjective Subjective: clinically same Objective - Vital Signs/Intake and Output Vital Signs (last 24 hours): Temp Pulse Resp BP Pulse Ox 98.1 F 80 20 167/92 H 96 08/26/18 07:59 08/26/18 12:13 08/26/18 07:59 08/26/18 12:13 08/26/18 07:59 Intake and Output: 08/26/18 08/26/18 06:59 18:59 Intake Total 500 Output Total 1000 Balance -500 - Medications Medications: Current Medications Acetaminophen (Tylenol 325mg Tab) 650 mg PO Q6 PRN PRN Reason: Pain, Mild (1-3) Albuterol/Ipratropium (Duoneb 3 Mg/0.5 Mg (3 Ml) Ud) 3 ml INH RQ4 PRN PRN Reason: Shortness of Breath Enoxaparin Sodium (Lovenox) 40 mg SC DAILY [facility] Last Admin: 08/26/18 09:42 Dose: 40 mg Hydrochlorothiazide (Microzide) 12.5 mg PO DAILY [facility] Last Admin: 08/26/18 14:31 Dose: 12.5 mg Cefazolin Sodium 1,000 mg/ (Sodium Chloride) 100 mls @ 100 mls/hr IVPB Q8H [facility]; Protocol Last Admin: 08/26/18 13:26 Dose: 100 mls/hr Insulin Aspart (Novolog) 0 unit SC ACHS [facility]; Protocol Last Admin: 08/26/18 12:10 Dose: 2 units Ketorolac Tromethamine (Toradol) 30 mg IVP Q6 PRN PRN Reason: Pain, Moderate-Severe (4-10) Last Admin: 08/26/18 09:45 Dose: 30 mg Lisinopril (Zestril) 5 mg PO DAILY [facility] Last Admin: 08/26/18 09:41 Dose: 5 mg Methadone HCl (Methadone) 110 mg PO DAILY [facility] Naproxen (Anaprox Ds) 550 mg PO BID [facility] Last Admin: 08/26/18 09:41 Dose: 550 mg Nicotine (Nicoderm Cq) 1 patch TD DAILY [facility] Last Admin: 08/26/18 09:42 Dose: 1 patch Pantoprazole Sodium (Protonix Ec Tab) 40 mg PO DAILY [facility] Last Admin: 08/26/18 09:41 Dose: 40 mg - Labs Labs: 08/26/18 07:11 08/26/18 07:11 PT 12.4 SECONDS (9.7-12.2) H 08/18/18 11:00 INR 1.1 08/18/18 11:00 APTT 25 SECONDS (21-34) 08/18/18 11:00 - Constitutional Appears: Well - Head Exam Head Exam: ATRAUMATIC, NORMAL INSPECTION, NORMOCEPHALIC - Eye Exam Eye Exam: EOMI, Normal appearance, PERRL Pupil Exam: NORMAL ACCOMODATION, PERRL - ENT Exam ENT Exam: Mucous Membranes Moist, Normal Exam - Neck Exam Neck Exam: Full ROM, Normal Inspection. absent: Lymphadenopathy - Respiratory Exam Respiratory Exam: Decreased Breath Sounds - Cardiovascular Exam Cardiovascular Exam: REGULAR RHYTHM, +S1, +S2 - GI/Abdominal Exam GI & Abdominal Exam: Soft, Diminished Bowel Sounds - Rectal Exam Rectal Exam: Deferred
--- NOTE | 2018-08-26 17:16 | CP.PCM.PN ---
"Subjective - Date & Time of Evaluation Date of Evaluation: 08/26/18 Time of Evaluation: 01:30 - Subjective Subjective: Patient seen and examined at bedside. Offers no complaints at this time. He denies any fevers, chill, chest pain, SOB, abdominal pain, changes in bowel habits and urinary symptoms. Objective - Vital Signs/Intake and Output Vital Signs (last 24 hours): Temp Pulse Resp BP Pulse Ox 97.9 F 60 20 189/91 H 98 08/26/18 15:00 08/26/18 15:00 08/26/18 15:00 08/26/18 15:00 08/26/18 15:00 Intake and Output: 08/26/18 08/26/18 06:59 18:59 Intake Total 500 600 Output Total 1000 Balance -500 600 - Medications Medications: Current Medications Acetaminophen (Tylenol 325mg Tab) 650 mg PO Q6 PRN PRN Reason: Pain, Mild (1-3) Albuterol/Ipratropium (Duoneb 3 Mg/0.5 Mg (3 Ml) Ud) 3 ml INH RQ4 PRN PRN Reason: Shortness of Breath Enoxaparin Sodium (Lovenox) 40 mg SC DAILY [facility] Last Admin: 08/26/18 09:42 Dose: 40 mg Hydrochlorothiazide (Microzide) 12.5 mg PO DAILY [facility] Last Admin: 08/26/18 14:31 Dose: 12.5 mg Cefazolin Sodium 1,000 mg/ (Sodium Chloride) 100 mls @ 100 mls/hr IVPB Q8H [facility]; Protocol Last Admin: 08/26/18 13:26 Dose: 100 mls/hr Insulin Aspart (Novolog) 0 unit SC ACHS [facility]; Protocol Last Admin: 08/26/18 12:10 Dose: 2 units Ketorolac Tromethamine (Toradol) 30 mg IVP Q6 PRN PRN Reason: Pain, Moderate-Severe (4-10) Last Admin: 08/26/18 09:45 Dose: 30 mg Lisinopril (Zestril) 5 mg PO DAILY [facility] Last Admin: 08/26/18 09:41 Dose: 5 mg Methadone HCl (Methadose) 80 mg PO DAILY [facility] Methadone HCl (Methadone) 30 mg PO DAILY [facility] Naproxen (Anaprox Ds) 550 mg PO BID [facility] Last Admin: 08/26/18 09:41 Dose: 550 mg Nicotine (Nicoderm Cq) 1 patch TD DAILY [facility] Last Admin: 08/26/18 09:42 Dose: 1 patch Pantoprazole Sodium (Protonix Ec Tab) 40 mg PO DAILY [facility] Last Admin: 08/26/18 09:41 Dose: 40 mg - Labs Labs: 08/26/18 07:11 08/26/18 07:11 PT 12.4 SECONDS (9.7-12.2) H 08/18/18 11:00 INR 1.1 08/18/18 11:00 APTT 25 SECONDS (21-34) 08/18/18 11:00 - Additional Findings Additional findings: - Additional Findings Additional findings: - Constitutional Appears: No Acute Distress - Head Exam Head Exam: ATRAUMATIC, NORMAL INSPECTION - Eye Exam Eye Exam: EOMI, Normal appearance - ENT Exam ENT Exam: Mucous Membranes Moist - Respiratory Exam Respiratory Exam: Clear to Ausculation Bilateral, NORMAL BREATHING PATTERN. absent: Rales, Rhonchi, Wheezes, Respiratory Distress - Cardiovascular Exam Cardiovascular Exam: REGULAR RHYTHM, +S1, +S2 - GI/Abdominal Exam GI & Abdominal Exam: Soft, Normal Bowel Sounds. absent: Distended, Firm, Guarding, Tenderness - Extremities Exam Additional comments: LLE- pulses palpable, sensation intact RLE- dressing and mary wrapped placed- clean, dry, intact; sensation intact; - Neurological Exam Neurological Exam: Alert, Awake, Oriented x3 - Psychiatric Exam Psychiatric exam: Normal Affect, Normal Mood - Skin Skin Exam: Dry, Normal Color, Warm Assessment and Plan - Assessment and Plan (Free Text) Assessment: This patient is a 47 year old male with a PMHx of DM II, and asthma admitted for evaluation and treatment of right foot cellulitis w/ abscess. Plan: Right Foot cellulitis w/ Abscess. S/P Right foot abscess I&D on 08/17/18 & 08/19/18 Podiatry Consulted (Dr. Carter), Recs Appreciated ID Consulted (Dr. Echols), Recs Appreciated. Foot X-ray (Admission): No acute fracture dislocation. Severe hallux valgus deformity. Forefoot midfoot dorsal soft tissue edema. Lower Ext MRI (08/17/18): Subcutaneous fluid collection in the mid to distal right foot superficial to the distal extensor tendons measures 2.9 x 2.5 x 2.2 centimeter may represent subcutaneous abscess. No evidence of osteomyelitis. Blood Culture (08/15/18): NEGATIVE | Wound Culture: (08/17/18): POSITIVE for Staph Aureus. Physical Therapy Eval/Tx | No Weight Bearing to Right Lower Ext. Meds: Tylenol PRN Morphine 4mg IVP PRN (Discontinued) Naproxen 550mg PO BID [facility] Percocet 1 tab & 2 tabs Q4H PRN (Discontinued, due to hx of opiod abuse) Toradol 30mg Q6H Cefazolin 1000mg Q8H for 7 days (Started 08/25/18) Hypertension Meds: Lisinopril 5mg PO (Started during this Hospital Course) HCTZ 12.5 PO Daily (Started today) DM II Meds: Insulin Sliding Scale ACHS Asthma Meds: DuoNebs PRN Opiod Abuse Meds: Methadone 110 Daily. Tobacco Abuse Meds: Nicotine Patch. Proph Lovenox, SCD Contraindicated Protonix Daily Heart Health Diet. Dispo: PENDING [facility] Placement. Patient to be on Cefazolin for 7 days then switched to PO Antibiotics (Keflex) for another 7 days Seen and discussed with Attending. Sonja Turcios, PGY-2"
--- NOTE | 2018-08-26 18:37 | CP.PCM.PN ---
Subjective - Date & Time of Evaluation Date of Evaluation: 08/26/18 Time of Evaluation: 09:00 - Subjective Subjective: afeb less pain Objective - Vital Signs/Intake and Output Vital Signs (last 24 hours): Temp Pulse Resp BP Pulse Ox 97.9 F 60 20 189/91 H 98 08/26/18 15:00 08/26/18 15:00 08/26/18 15:00 08/26/18 15:00 08/26/18 15:00 Intake and Output: 08/26/18 08/26/18 06:59 18:59 Intake Total 500 600 Output Total 1000 Balance -500 600 - Medications Medications: Current Medications Acetaminophen (Tylenol 325mg Tab) 650 mg PO Q6 PRN PRN Reason: Pain, Mild (1-3) Albuterol/Ipratropium (Duoneb 3 Mg/0.5 Mg (3 Ml) Ud) 3 ml INH RQ4 PRN PRN Reason: Shortness of Breath Enoxaparin Sodium (Lovenox) 40 mg SC DAILY [facility] Last Admin: 08/26/18 09:42 Dose: 40 mg Hydrochlorothiazide (Microzide) 12.5 mg PO DAILY [facility] Last Admin: 08/26/18 14:31 Dose: 12.5 mg Cefazolin Sodium 1,000 mg/ (Sodium Chloride) 100 mls @ 100 mls/hr IVPB Q8H [facility]; Protocol Last Admin: 08/26/18 13:26 Dose: 100 mls/hr Insulin Aspart (Novolog) 0 unit SC ACHS [facility]; Protocol Last Admin: 08/26/18 17:33 Dose: 2 units Ketorolac Tromethamine (Toradol) 30 mg IVP Q6 PRN PRN Reason: Pain, Moderate-Severe (4-10) Last Admin: 08/26/18 09:45 Dose: 30 mg Lisinopril (Zestril) 5 mg PO DAILY [facility] Last Admin: 08/26/18 09:41 Dose: 5 mg Methadone HCl (Methadose) 80 mg PO DAILY [facility] Methadone HCl (Methadone) 30 mg PO DAILY [facility] Naproxen (Anaprox Ds) 550 mg PO BID [facility] Last Admin: 08/26/18 17:32 Dose: 550 mg Nicotine (Nicoderm Cq) 1 patch TD DAILY [facility] Last Admin: 08/26/18 09:42 Dose: 1 patch Pantoprazole Sodium (Protonix Ec Tab) 40 mg PO DAILY [facility] Last Admin: 08/26/18 09:41 Dose: 40 mg - Labs Labs: 08/26/18 07:11 08/26/18 07:11 PT 12.4 SECONDS (9.7-12.2) H 08/18/18 11:00 INR 1.1 08/18/18 11:00 APTT 25 SECONDS (21-34) 08/18/18 11:00 - Constitutional Appears: Non-toxic, Chronically Ill - Head Exam Head Exam: NORMOCEPHALIC - Eye Exam Eye Exam: absent: Scleral icterus - ENT Exam ENT Exam: Mucous Membranes Dry - Neck Exam Neck Exam: absent: Lymphadenopathy - Respiratory Exam Respiratory Exam: Decreased Breath Sounds - Cardiovascular Exam Cardiovascular Exam: REGULAR RHYTHM - GI/Abdominal Exam GI & Abdominal Exam: Distended - Rectal Exam Rectal Exam: Deferred - Exam Exam: NORMAL INSPECTION - Extremities Exam Extremities Exam: absent: Pedal Edema - Back Exam Back Exam: absent: CVA tenderness (L), CVA tenderness (R) - Neurological Exam Neurological Exam: Alert, Awake, Oriented x3 - Psychiatric Exam Psychiatric exam: Normal Mood - Skin Skin Exam: Dry Assessment and Plan (1) Diabetes mellitus Status: Acute (2) Osteomyelitis of ankle and foot Status: Inactive (3) Puncture wound of foot with foreign body Status: Acute (4) Cellulitis Status: Acute (5) Cellulitis and abscess of foot Status: Acute (6) Cellulitis and abscess of foot Status: Acute (7) Diabetic foot infection Status: Acute (8) Diabetic foot infection Status: Acute - Assessment and Plan (Free Text) Assessment: cont wound care IV then PO antibiotics
[2018-08-26] MEDS ORDERED: Oxycodone/Acetaminophen 5/325 mg Tab PO PRN (20:33)
[2018-08-27 00:31] VITALS: RESP 20
[2018-08-27 07:37] LABS: BASO # 0.1 K/uL (0.0-0.2); BASO % 0.5 % (0.0-2.0); EOS # 0.3 K/uL (0.0-0.7); EOS % 2.7 % (0.0-4.0); HEMOGLOBIN 13.6 g/dL (12.0-18.0); LYMPH # 3.2 K/uL (1.0-4.3); LYMPH % 28.3 % (20.0-40.0); MEAN CELL VOLUME 85.7 fL (80.0-94.0); MEAN CORPUSCULAR HEMOGLOBIN 29.3 pg (27.0-31.0); MEAN CORPUSCULAR HGB CONC 34.1 g/dL (33.0-37.0); MEAN PLATELET VOLUME 8.9 fL (7.2-11.7); MONO # 0.7 K/uL (0.0-0.8); MONO % 5.9 % (0.0-10.0); NEUT # 7.1 K/uL (1.8-7.0); NEUT % 62.6 % (50.0-75.0); RBC 4.64 Mil/uL (4.40-5.90); RED CELL DISTRIBUTION WIDTH 13.9 % (11.5-14.5); WHITE BLOOD COUNT 11.3 K/uL (4.8-10.8)
[2018-08-27] MEDS: (Novolog) Insulin Aspart, Recombinant 100 u/ml 10 ml vial SC SCH ×3 (07:39→17:44)
[2018-08-27 08:31] LABS: ALB/GLOB RATIO 1.1 (1.0-2.1); ALBUMIN 3.8 g/dL (3.5-5.0); ALT/SGPT 34 U/L (21-72); AST/SGOT 26 U/L (17-59); BLOOD UREA NITROGEN 18 mg/dL (9-20); GFR NON-AFRICAN AMERICAN > 60
[2018-08-27] MEDS: Naproxen 550 mg Tab PO SCH ×2 (09:58→17:45)
[2018-08-27] MEDS: Pantoprazole 40 mg EC Tab PO SCH (09:58)
[2018-08-27] MEDS: Enoxaparin 40 mg Syringe SC SCH (09:59)
[2018-08-27] MEDS ORDERED: Methadone 40 mg Tab PO SCH (10:00)
--- NOTE | 2018-08-27 11:25 | CP.PCM.PN ---
Subjective - Date & Time of Evaluation Date of Evaluation: 08/27/18 Time of Evaluation: 11:21 - Subjective Subjective: Podiatry Progress Note for Dr. Raul GalvezM seen and evaluated at bedside 8 days s/p I and D of right foot. Patient is AAO x 3 and NAD at time of visit. States that he still has some pain in his foot but it continues to improve. States that he has continued to walk on his foot without incident. Denies any further pedal complaints or overnight events. Denies any recent N/V/F/C/CP/SOB/D Objective - Vital Signs/Intake and Output Vital Signs (last 24 hours): Temp Pulse Resp BP Pulse Ox 98.5 F 61 20 159/89 H 96 08/27/18 07:34 08/27/18 07:34 08/27/18 07:34 08/27/18 07:34 08/27/18 07:34 Intake and Output: 08/27/18 08/27/18 06:59 18:59 Intake Total 500 Output Total 1200 Balance -700 - Medications Medications: Current Medications Acetaminophen (Tylenol 325mg Tab) 650 mg PO Q6 PRN PRN Reason: Pain, Mild (1-3) Albuterol/Ipratropium (Duoneb 3 Mg/0.5 Mg (3 Ml) Ud) 3 ml INH RQ4 PRN PRN Reason: Shortness of Breath Enoxaparin Sodium (Lovenox) 40 mg SC DAILY [facility] Last Admin: 08/27/18 09:59 Dose: 40 mg Hydrochlorothiazide (Microzide) 12.5 mg PO DAILY [facility] Last Admin: 08/27/18 09:58 Dose: 12.5 mg Cefazolin Sodium 1,000 mg/ (Sodium Chloride) 100 mls @ 100 mls/hr IVPB Q8H [facility]; Protocol Last Admin: 08/27/18 05:00 Dose: 100 mls/hr Insulin Aspart (Novolog) 0 unit SC ACHS [facility]; Protocol Last Admin: 08/27/18 07:39 Dose: Not Given Ketorolac Tromethamine (Toradol) 30 mg IVP Q6 PRN PRN Reason: Pain, Moderate-Severe (4-10) Last Admin: 08/26/18 20:46 Dose: 30 mg Lisinopril (Zestril) 5 mg PO DAILY [facility] Last Admin: 08/27/18 09:58 Dose: 5 mg Methadone HCl (Methadose) 80 mg PO DAILY [facility] Last Admin: 08/27/18 09:58 Dose: 80 mg Methadone HCl (Methadone) 30 mg PO DAILY [facility] Last Admin: 08/27/18 09:58 Dose: 30 mg Naproxen (Anaprox Ds) 550 mg PO BID [facility] Last Admin: 08/27/18 09:58 Dose: 550 mg Nicotine (Nicoderm Cq) 1 patch TD DAILY [facility] Last Admin: 08/27/18 09:59 Dose: 1 patch Pantoprazole Sodium (Protonix Ec Tab) 40 mg PO DAILY [facility] Last Admin: 08/27/18 09:58 Dose: 40 mg - Labs Labs: 08/27/18 07:32 08/27/18 07:32 PT 12.4 SECONDS (9.7-12.2) H 08/18/18 11:00 INR 1.1 08/18/18 11:00 APTT 25 SECONDS (21-34) 08/18/18 11:00 - Constitutional Appears: Well, Non-toxic, No Acute Distress - Extremities Exam Additional comments: RLE focused exam: Vasc: DP/PT pulses fully palpable 2/4 b/l. Skin temperature warm to warm from proximal to distal. CFT < 3 seconds to all digits b/l. No edema noted to dorsal foot Derm: Incision measuring approximately 10 cm noted to the dorsum of the right foot, with central opening. No arsen-wound erythema present. No malodor, decreased amount of serous drainage noted, no purulence, no tracking, tunneling or undermining. No other clinical signs of infection noted. Sutures noted to be intact Neuro: Epicritic and protective sensation grossly intact Ortho: minimal, improving pain noted to palpation of right dorsal foot at site of wound, MM is 5/5 in all four compartments: dorsiflexion, plantarflexion, inversion and eversion - Neurological Exam Neurological Exam: Alert, Awake, Oriented x3 - Psychiatric Exam Psychiatric exam: Normal Affect, Normal Mood Assessment and Plan - Assessment and Plan (Free Text) Assessment: 48M seen and evaluated at bedside 8 days s/p I and D of right foot Plan: Patient seen and evaluated Plan discussed with Dr. Carter WBC 11.3 with no clinical signs of infection noted at surgical site Afebrile Continue abx per ID No plan for further surgical intervention at this time Patient to be DC to [facility] later today He may be weight bearing as tolerated in surgical shoe Patient to follow up with Dr. Carter in her clinic Podiatry will continue to follow while patient in house
[2018-08-27] MEDS ORDERED: Potassium Chloride 10 mEq ER Tab PO STA (13:33)
--- NOTE | 2018-08-27 14:41 | CP.PCM.PN ---
"Subjective - Date & Time of Evaluation Date of Evaluation: 08/27/18 Time of Evaluation: 14:39 - Subjective Subjective: PGY2 Progress note for Dr. Jodee Rapp Patient was seen and examined at bedside in no acute distress. Patient denies having complaints and states hes feeling well and only has occasional mild pain in his foot. Patient denies chest pain, palpitations, nausea, vomiting, fevers, abdominal pain, headaches, dyspnea. Objective - Vital Signs/Intake and Output Vital Signs (last 24 hours): Temp Pulse Resp BP Pulse Ox 98.5 F 61 20 159/89 H 96 08/27/18 07:34 08/27/18 07:34 08/27/18 07:34 08/27/18 07:34 08/27/18 07:34 Intake and Output: 08/27/18 08/27/18 06:59 18:59 Intake Total 500 700 Output Total 1200 Balance -700 700 - Medications Medications: Current Medications Acetaminophen (Tylenol 325mg Tab) 650 mg PO Q6 PRN PRN Reason: Pain, Mild (1-3) Albuterol/Ipratropium (Duoneb 3 Mg/0.5 Mg (3 Ml) Ud) 3 ml INH RQ4 PRN PRN Reason: Shortness of Breath Enoxaparin Sodium (Lovenox) 40 mg SC DAILY [facility] Last Admin: 08/27/18 09:59 Dose: 40 mg Hydrochlorothiazide (Microzide) 12.5 mg PO DAILY [facility] Last Admin: 08/27/18 09:58 Dose: 12.5 mg Cefazolin Sodium 1,000 mg/ (Sodium Chloride) 100 mls @ 100 mls/hr IVPB Q8H [facility]; Protocol Last Admin: 08/27/18 13:43 Dose: 100 mls/hr Insulin Aspart (Novolog) 0 unit SC ACHS [facility]; Protocol Last Admin: 08/27/18 12:10 Dose: 3 units Ketorolac Tromethamine (Toradol) 30 mg IVP Q6 PRN PRN Reason: Pain, Moderate-Severe (4-10) Last Admin: 08/27/18 12:12 Dose: 30 mg Lisinopril (Zestril) 5 mg PO DAILY [facility] Last Admin: 08/27/18 09:58 Dose: 5 mg Methadone HCl (Methadose) 80 mg PO DAILY [facility] Last Admin: 08/27/18 09:58 Dose: 80 mg Methadone HCl (Methadone) 30 mg PO DAILY [facility] Last Admin: 08/27/18 09:58 Dose: 30 mg Naproxen (Anaprox Ds) 550 mg PO BID [facility] Last Admin: 08/27/18 09:58 Dose: 550 mg Nicotine (Nicoderm Cq) 1 patch TD DAILY [facility] Last Admin: 08/27/18 09:59 Dose: 1 patch Pantoprazole Sodium (Protonix Ec Tab) 40 mg PO DAILY [facility] Last Admin: 08/27/18 09:58 Dose: 40 mg - Labs Labs: 08/27/18 07:32 08/27/18 07:32 PT 12.4 SECONDS (9.7-12.2) H 08/18/18 11:00 INR 1.1 08/18/18 11:00 APTT 25 SECONDS (21-34) 08/18/18 11:00 - Constitutional Appears: No Acute Distress - Head Exam Head Exam: ATRAUMATIC, NORMAL INSPECTION - Eye Exam Eye Exam: EOMI, Normal appearance - ENT Exam ENT Exam: Mucous Membranes Moist - Respiratory Exam Respiratory Exam: NORMAL BREATHING PATTERN. absent: Rales, Rhonchi, Wheezes, Respiratory Distress - Cardiovascular Exam Cardiovascular Exam: REGULAR RHYTHM, +S1, +S2 - GI/Abdominal Exam GI & Abdominal Exam: Soft, Normal Bowel Sounds. absent: Distended, Firm, Ten derness - Extremities Exam Extremities Exam: absent: Pedal Edema, Tenderness Additional comments: dressing present- dry, intact, clean. Sensation intact, movement intact, pulses intact. - Neurological Exam Neurological Exam: Alert, Awake, Oriented x3 - Psychiatric Exam Psychiatric exam: Normal Affect, Normal Mood - Skin Skin Exam: Dry, Warm Assessment and Plan - Assessment and Plan (Free Text) Plan: This patient is a 47 year old male with a PMHx of DM II, and asthma admitted for evaluation and treatment of right foot cellulitis w/ abscess. Plan: Right Foot cellulitis w/ Abscess. S/P Right foot abscess I&D on 08/17/18 & 08/19/18 Podiatry Consulted (Dr. Carter), Recs Appreciated ID Consulted (Dr. Echols), Recs Appreciated. Foot X-ray (Admission): No acute fracture dislocation. Severe hallux valgus deformity. Forefoot midfoot dorsal soft tissue edema. Lower Ext MRI (08/17/18): Subcutaneous fluid collection in the mid to distal right foot superficial to the distal extensor tendons measures 2.9 x 2.5 x 2.2 centimeter may represent subcutaneous abscess. No evidence of osteomyelitis. Blood Culture (08/15/18): NEGATIVE | Wound Culture: (08/17/18): POSITIVE for Staph Aureus. Physical Therapy Eval/Tx | No Weight Bearing to Right Lower Ext. Meds: Tylenol PRN Morphine 4mg IVP PRN (Discontinued) Naproxen 550mg PO BID [facility] Percocet 1 tab & 2 tabs Q4H PRN (Discontinued, due to hx of opiod abuse) Toradol 30mg Q6H Cefazolin 1000mg Q8H for 7 days (Started 08/25/18) Hypertension Meds: Lisinopril 5mg PO (Started during this Hospital Course) HCTZ 12.5 PO Daily (Started today) DM II Meds: Insulin Sliding Scale ACHS Asthma Meds: DuoNebs PRN Opiod Abuse Meds: Methadone 110 Daily. Tobacco Abuse Meds: Nicotine Patch. Proph Lovenox, SCD Contraindicated Protonix Daily Heart Health Diet. Patient is stable for discharge to [facility] Post acute per Dr. Kaylyn Rapp. Patient must continue all medications. Patient must continue Cefazolin for 7 days (last dose to be given on 08/31/18) then switched to PO Antibiotics (Keflex) for another 7 days. Patient must follow up with PMD, Dr. Jodee Rapp, [employer], Dr. Carter, and ID, Dr. Echols, within 1-2 weeks of discharge. If symptoms worsen or reoccur, patient should return to nearest ED."
[2018-08-27 16:52] VITALS: BP 145/79; PULSE 56; TEMP 98.1; O2SAT 95
--- NOTE | 2018-08-27 20:54 | CP.PCM.PN ---
Subjective - Date & Time of Evaluation Date of Evaluation: 08/27/18 Time of Evaluation: 07:15 - Subjective Subjective: clinically same Objective - Vital Signs/Intake and Output Vital Signs (last 24 hours): Temp Pulse Resp BP Pulse Ox 98.1 F 56 L 20 145/79 95 08/27/18 15:30 08/27/18 15:30 08/27/18 15:30 08/27/18 15:30 08/27/18 15:30 Intake and Output: 08/27/18 08/28/18 18:59 06:59 Intake Total 700 Balance 700 - Medications Medications: Current Medications Acetaminophen (Tylenol 325mg Tab) 650 mg PO Q6 PRN PRN Reason: Pain, Mild (1-3) Albuterol/Ipratropium (Duoneb 3 Mg/0.5 Mg (3 Ml) Ud) 3 ml INH RQ4 PRN PRN Reason: Shortness of Breath Enoxaparin Sodium (Lovenox) 40 mg SC DAILY [facility], [facility]1983 Last Admin: 08/27/18 09:59 Dose: 40 mg Hydrochlorothiazide (Microzide) 12.5 mg PO DAILY [facility] Last Admin: 08/27/18 09:58 Dose: 12.5 mg Cefazolin Sodium 1,000 mg/ (Sodium Chloride) 100 mls @ 100 mls/hr IVPB Q8H [facility], [facility]–1983; Protocol Last Admin: 08/27/18 13:43 Dose: 100 mls/hr Insulin Aspart (Novolog) 0 unit SC ACHS [facility], [facility]1983; Protocol Last Admin: 08/27/18 17:44 Dose: 2 units Ketorolac Tromethamine (Toradol) 30 mg IVP Q6 PRN PRN Reason: Pain, Moderate-Severe (4-10) Last Admin: 08/27/18 12:12 Dose: 30 mg Lisinopril (Zestril) 5 mg PO DAILY [facility] Last Admin: 08/27/18 09:58 Dose: 5 mg Methadone HCl (Methadose) 80 mg PO DAILY [facility] Last Admin: 08/27/18 09:58 Dose: 80 mg Methadone HCl (Methadone) 30 mg PO DAILY [facility] Last Admin: 08/27/18 09:58 Dose: 30 mg Naproxen (Anaprox Ds) 550 mg PO BID [facility] Last Admin: 08/27/18 17:45 Dose: 550 mg Nicotine (Nicoderm Cq) 1 patch TD DAILY [facility] Last Admin: 08/27/18 09:59 Dose: 1 patch Pantoprazole Sodium (Protonix Ec Tab) 40 mg PO DAILY [facility] Last Admin: 08/27/18 09:58 Dose: 40 mg - Labs Labs: 08/27/18 07:32 08/27/18 07:32 PT 12.4 SECONDS (9.7-12.2) H 08/18/18 11:00 INR 1.1 08/18/18 11:00 APTT 25 SECONDS (21-34) 08/18/18 11:00
--- NOTE | 2018-09-07 10:00 | PQF ---
PROVIDER RESPONSE TEXT: Due to diabetes vascular disease. REVIEWER QUERY TEXT: Diabetic Associated Manifestations Please specify any manifestations associated / due to diabetes Cellulitus due to diabetes Cellulitus not due to diabetes Other____(please specify) Unable to clinically determine The patient's Clinical Indicators include: Patient is a 47 year old male admitted with cellulitus and abscess of the right foot. Patient is also a Type 2 diabetic. Progress notes state diabetic foot infection. Query created by: Misty Dang on 08/28/2018 5:32 PM Electronically signed by: Claudy RIOJAS 09/07/2018 9:57 AM
== END 2018-08-27 20:55 | DRG 294 ==
LOC: C.ER 11:00 → C.9E 13:58 → C.3T 14:09
PROVIDERS: ADMIT Internal Medicine Nephrology; ATTEND Internal Medicine Nephrology
PROC: 0H9MXZZ Drainage of Right Foot Skin, External Approach (ICD-10-PCS; principal; 2018-08-23)
DX: E11.628 Type 2 diabetes mellitus with other skin complications (principal); L03.115 Cellulitis of right lower limb; L02.611 Cutaneous abscess of right foot; S91.341A Puncture wound with foreign body, right foot, initial encounter; F17.210 Nicotine dependence, cigarettes, uncomplicated; M20.10 Hallux valgus (acquired), unspecified foot; W20.8XXA Other cause of strike by thrown, projected or falling object, initial encounter